=== PATIENT | female | born 1965 | race Caucasian/White ===

== ENCOUNTER 2023-10-12 08:19 | Emergency (ER) | payer MEDICAID, SELFPAY ==
[2023-10-12 08:28] VITALS: BP 129/81; PULSE 100; RESP 18; TEMP 36.9; O2SAT 100; BMI 29.6
--- NOTE | 2023-10-12 09:26 | ED_ITS ---
HPI - General Adult General Chief complaint: General Medical Stated complaint: rash all body Time Seen by Provider: 10/12/23 09:07 Source: patient Mode of arrival: ambulatory Limitations: no limitations History of Present Illness HPI narrative: This is a 58-year-old female with no known medical problems who presents to the ER with complaints of itching rash to her generalized body for several days. Patient reports she has had this intermittent rash over the last 1 month. She reports the rash began while she was living in [place]. She did moved here to [place] 2 weeks ago and plans on staying here. While she was in [place] she was given a course of prednisone which improved her symptoms. She has been intermittently taking Benadryl, montelukast, Effie, Claritin with continued symptoms. She denies any difficulty breathing, difficulty swallowing, vomiting, diarrhea, abdominal cramping. Patient reports she does not have a primary care doctor. She has never had allergy testing performed before. She denies any new medications, new products, new detergents, new foods Related Data Previous Rx's Medication Instructions Recorded famotidine 40 mg tablet 40 mg PO DAILY #30 tabs 10/12/23 loratadine 10 mg tablet (Claritin) 10 mg PO DAILY #30 tabs 10/12/23 prednisone 20 mg tablet 60 mg (3 x 20 mg) PO DAILY #15 tabs 10/12/23 Allergies Allergy/AdvReac Type Severity Reaction Status Date / Time No Known Allergies Allergy Verified 10/12/23 08:30 Review of Systems Review of Systems: Yes all other systems are reviewed and are negative Constitutional: Constitutional: Reports no additional constitutional complaints, Denies body ache(s), Denies chills, Denies fever(s), Denies headache(s) and Denies weakness Eyes: Eyes: Reports no additional eye complaints and Denies change in vision ENT: Reports system reviewed and no additional complaints, except as documented, Denies dizziness, Denies headache(s), Denies nasal congestion, Denies nasal discharge and Denies neck pain Cardiovascular: Cardiovascular: Reports no additional cardiovascular complaints, Denies chest pain, Denies leg edema and Denies dyspnea Respiratory: Respiratory: Reports no additional respiratory complaints, Denies cough and Denies dyspnea Gastrointestinal: Gastrointestinal: Reports no additional gastrointestinal complaints, Denies abdominal pain, Denies diarrhea, Denies nausea and Denies vomiting Genitourinary: Genitourinary: Reports no additional female genitourinary complaints and Denies urinary incontinence Musculoskeletal: Musculoskeletal: Reports no additional musculoskeletal complaints, Denies back pain, Denies arthralgias, Denies joint swelling, Denies neck pain, Denies numbness and Denies tingling Integumentary/Breasts: Skin/Breast: Reports system reviewed and no additional complaints, except as docu and Reports rash Neurologic: Reports system reviewed and no additional complaints, except as documented, Denies Abnormal speech present, Denies dizziness, Denies headache(s), Denies numbness, Denies tingling and Denies weakness [facility] Past Medical History Attestation statement: The following information was validated with the patient. Source: old records reviewed and nursing notes reviewed Social History Social History Advance Directives: No Advance Directives Information Provided: Yes Patient : No Physical Exam ED Vital Signs: Vital Signs - 24 hr 10/12/23 08:28 Temperature 98.5 F Pulse Rate 100 Respiratory Rate 18 Blood Pressure 129/81 Pulse Oximetry 100 Oxygen Delivery Method Room Air BMI result Body Mass Index 29.6 Const General: cooperative, healthy appearing, comfortable and no acute distress Orientation/consciousness: patient oriented x3 Limitations: no limitations HENMT Head: Yes normal to inspection Ears: hearing grossly normal bilaterally General nose exam: Normal external nose present Face and sinus: Yes normal facial exam Mouth: Normal oral and palatal mucosa present, lip normal and tongue normal Throat: Yes posterior oropharynx normal, Yes tonsils normal and Yes uvula midline Eyes General: appearance normal, both eyes and all related structures Pupils: Equal, round and reactive pupils present Neck Neck: Yes normal visual inspection, Yes full ROM, Yes no lymphadenopathy and Yes no meningeal signs Chest Chest palpation & inspection: normal inspection of the chest Resp Effort & Inspection: normal respiratory effort Auscultation: clear to auscultation bilaterally Cardio Rate: regular rate Rhythm: regular rhythm Peripheral pulses: Peripheral pulses 2+ throughout GI Inspection: Yes normal to inspection Palpation (GI): Soft to palpation and nontender Auscultation: normal bowel sounds Back/Spine/Pelvis Thoracic/Lumbar Spine: thoracic and lumbar spine normal to inspection Skin Other: over the trunk, upper and lower extremities there is an urticarial rash noted diffusely. There is no rash noted over the hands or the feet or in the oropharynx. General skin exam: no rashes or lesions noted Neuro General: patient oriented x3, no meningeal signs, no focal motor deficits and normal sensation to monofilament Cranial nerves: Yes Equal, round and reactive pupils present Cognition (Neuro): normal cognition Speech: No Abnormal speech present Gait exam (Neuro): Normal gait present Motor exam (neuro): 5/5 motor strength present throughout Extrem General: Yes normal to inspection Medications Administered Discontinued Medications Generic Name Dose Route Start Last Admin Trade Name Anneliese PRN Reason Stop Dose Admin Methylprednisolone Sodium Succinate 60 mg 10/12/23 09:25 10/12/23 09:31 Methylprednisolone Sod Succ 125 Mg/2 Ml Vial IM 10/12/23 09:26 60 mg ONCE ONE Administration Medical Decision Making Medical Decision Making [facility] Narrative: This is a 58-year-old female with no known medical problems who presents to the ER with complaints of itching rash to her generalized body for several days. Patient reports she has had this intermittent rash over the last 1 month. She reports the rash began while she was living in [place]. She did moved here to [place] 2 weeks ago and plans on staying here. While she was in [place] she was given a course of prednisone which improved her symptoms. She has been intermittently taking Benadryl, montelukast, Effie, Claritin with continued symptoms. She denies any difficulty breathing, difficulty swallowing, vomiting, diarrhea, abdominal cramping. Patient reports she does not have a primary care doctor. She has never had allergy testing performed before. She denies any new medications, new products, new detergents, new foods Urticarial noticed diffusely no airway involvement or angioedema patient given Solu-Medrol 60 mg IM will discharge home with prednisone course, famotidine, Benadryl, Claritin with recommendations to establish a primary care doctor and have allergy testing. Reviewed worrisome signs and symptoms of when to return to the emergency room. Comfortable plan for discharge home. Differential Diagnosis Differential Diagnoses: The differential diagnosis associated with the presentation includes Allergic reaction Admission/Observation Consideration of admission/observation: Escalation of care including admissi on/observation considered no airway involvement or angioedema requiring IV medication, epinephrine, admission for observation Independent Historian Clinical information obtained from an independent historian. History obtained from or confirmed by: Friend Discharge Plan Discharge Clinical Impression: Allergic reaction Patient Disposition: Home, Self-Care Instructions: General Allergic Reaction (ED) Additional Instructions: continue taking the montelukast take the other medications as prescribed Use benadryl as needed return for any difficulty breathing, difficulty swallowing, lip or tongue swelling you need to establish a primary care doctor so that you may get outpatient allergy testing Prescriptions: New prednisone 20 mg tablet 60 mg PO DAILY Qty: 15 0RF famotidine 40 mg tablet 40 mg PO DAILY Qty: 30 0RF loratadine [Claritin] 10 mg tablet 10 mg PO DAILY Qty: 30 0RF Referrals: Physician,None [Primary Care Provider] - 1 week Interventions: ED Discharge Assessment Last Done: 10/12/23 09:56 Discharge Date/Time: 10/12/23 10:00
[2023-10-12] MEDS: methylPREDNISolone Sod Succ 125 MG/2 ML VIAL 60 MG IM (09:31)
== END 2023-10-12 10:00 | disposition home or self-care (01) ==
PROVIDERS: Emergency Provider Emergency Medicine
DX: R21 Rash and other nonspecific skin eruption (principal); T78.40XA Allergy, unspecified, initial encounter; X58.XXXA Exposure to other specified factors, initial encounter
CPT/HCPCS: 96372; 99284; J2930

== ENCOUNTER 2023-12-13 10:36 | Emergency (ER) | payer MEDICAID, SELFPAY ==
[2023-12-13 11:14] VITALS: BP 144/81; PULSE 98; RESP 18; TEMP 37.3; O2SAT 99; BMI 28.3
--- NOTE | 2023-12-13 11:17 | ED_ITS ---
HPI - Allergic Reaction General Chief complaint: Skin/Abscess/Foreign Body Stated complaint: Allergic reaction-rash on body Time Seen by Provider: 12/13/23 11:23 Source: patient and RN notes reviewed Mode of arrival: ambulatory Limitations: no limitations History of Present Illness HPI narrative: This is a 58-year-old female with no known medical problems who presents to the ER with complaints of diffuse itchy rash x several days, worsening today. She was seen at [facility] ED several months ago for the same rash, given prednisone and rash resolved until several days ago. Denies any new soaps, lotions, detergents or foods. No shortness of breath or difficulty swallowing. Denies any sick contacts with similar symptoms. She has not had allergy testing before. No other complaints or concerns at this time. MD complaint: allergic reaction and hives Onset (ago): day(s) Exposure: unknown Symptoms: rash Severity: moderate Treatment prior to arrival: none Previous Allergic Reaction History: prior ED visit(s) Related Data Previous Rx's Medication Instructions Recorded famotidine 40 mg tablet 40 mg PO DAILY #30 tabs 10/12/23 loratadine 10 mg tablet (Claritin) 10 mg PO DAILY #30 tabs 10/12/23 prednisone 20 mg tablet 60 mg (3 x 20 mg) PO DAILY #15 tabs 10/12/23 diphenhydramine HCl 25 mg capsule 25 mg PO BEDTIME PRN allergic 12/13/23 (Benadryl) reaction #30 caps prednisone 20 mg tablet 40 mg (2 x 20 mg) PO DAILY 4 days 12/13/23 #8 tabs Allergies Allergy/AdvReac Type Severity Reaction Status Date / Time No Known Allergies Allergy Verified 12/13/23 11:14 Review of Systems Review of Systems: Yes all other systems are reviewed and are negative Constitutional: Constitutional: Reports as per [facility] Social History Social History Advance Directives: No Advance Directives Information Provided: No Physical Exam ED Vital Signs: Vital Signs - 24 hr 12/13/23 11:14 Temperature 99.2 F Pulse Rate 98 Respiratory Rate 18 Blood Pressure 144/81 H Pulse Oximetry 99 Oxygen Delivery Method Room Air BMI result Body Mass Index 28.3 Const General: cooperative, comfortable and no acute distress Orientation/consciousness: patient oriented x3 Limitations: no limitations HENMT Head: Yes normal to inspection, Yes normocephalic and Yes atraumatic Ears: hearing grossly normal bilaterally General nose exam: Normal external nose present Face and sinus: Yes normal facial exam Mouth: Normal oral and palatal mucosa present, oropharynx normal and moist mucous membranes Throat: Yes posterior oropharynx normal Eyes General: appearance normal, both eyes and all related structures Eyelids: Yes eyelids normal Conjunctivae: conjunctivae normal Sclerae: sclerae normal Pupils: Equal, round and reactive pupils present EOM: EOMs intact bilaterally Neck Neck: Yes normal visual inspection, Yes full ROM and Yes no lymphadenopathy Lymphatic: no lymphadenopathy noted Chest Chest palpation & inspection: normal inspection of the chest Resp Effort & Inspection: normal respiratory effort and able to speak in complete sentences Auscultation: clear to auscultation bilaterally, no crackles, no rales, no rhonchi and no wheezes Cardio Rate: regular rate Rhythm: regular rhythm Heart sounds: S1 normal heart sound present and S2 normal heart sound present GI Inspection: Yes normal to inspection Skin Other: Diffuse wheals of different sizes throughout anterior and posterior trunk and BL arms. General skin exam: no rashes or lesions noted Trauma: no lacerations or abrasions Wounds: no wounds Neuro General: patient oriented x3 and moves all extremities Cranial nerves: Yes Equal, round and reactive pupils present Extrem General: Yes normal to inspection Right upper extremity: normal to inspection Left upper extremity: normal to inspection Right lower extremity: normal to inspection Left lower extremity: normal to inspection Medications Administered Discontinued Medications Generic Name Dose Route Start Last Admin Trade Name Freq PRN Reason Stop Dose Admin Prednisone 50 mg 12/13/23 11:22 12/13/23 11:32 Prednisone 10 Mg Tablet PO 12/13/23 11:23 50 mg ONCE ONE Administration Prednisone 50 mg 12/13/23 11:35 12/13/23 13:16 Prednisone 10 Mg Tablet PO 12/13/23 11:36 Not Given ONCE ONE Medical Decision Making Medical Decision Making [facility] Narrative: 58 y/o F, no known medical problems presenting to the ER with complaints of itchy rash x several days. On arrival VSS, pt has no shortness of breath or difficulty swallowing. Presentation consistent with allergic reaction of unknown exposure, will treat symptomatically with prednisone. Pt symptoms and rash greatly improved after prednisone 50mg PO. Lungs remain clear, pt feeling much better. Pt given return precautions and high school history teacher to follow up with. PT understand and agrees with plan. Stable for d/c. Differential Diagnosis Differential Diagnoses: The differential diagnosis associated with the presentation includes contact//atopic//eczematous dermatitis, psoriasis, \cellulitis. Lab Data MDM Lab Attestation statement: I reviewed the patient's lab results. Labs: Lab Results 12/13/23 12/13/23 12/13/23 Range/Units 11:26 11:27 12:21 COVID-19 (MARIA A) Negative (Negative) COVID-19 Clin Com See Note Influenza Type A (NEMO) Invalid Negative (Negative) Influenza Type B (NEMO) Invalid Negative (Negative) Influenza A & B Note See Note See Note S. pyogenes GrpA NEMO Negative (Negative) Discharge Plan Discharge Clinical Impression: Contact dermatitis Patient Disposition: Home, Self-Care Instructions: Contact Dermatitis (ED) Additional Instructions: Your seen in the emergency department after an allergic reaction. It is unclear what you are allergic to. Your symptoms improved after receiving prednisone. Please continue prednisone for the next 4 days, take her 1st dose tomorrow as you already received your dose today. Follow-up with the high school history teacher, call Thursday to make an appointment. Take Benadryl as needed for itching, please be advised that this can cause drowsiness, do not drink alcohol or drive while taking this. If any new or worsening symptoms occur including but not limited to difficulty breathing or swallowing, please return for re-evaluation. Please call high school history teacher for referral [facility] [address] [place] [address] Prescriptions: New prednisone 20 mg tablet 40 mg PO DAILY 4 Days Qty: 8 0RF diphenhydramine HCl [Benadryl] 25 mg capsule 25 mg PO BEDTIME PRN (Reason: allergic reaction) Qty: 30 0RF No Action prednisone 20 mg tablet 60 mg PO DAILY Qty: 15 0RF famotidine 40 mg tablet 40 mg PO DAILY Qty: 30 0RF loratadine [Claritin] 10 mg tablet 10 mg PO DAILY Qty: 30 0RF Interventions: ED Discharge Assessment Last Done: 12/13/23 14:42 Discharge Date/Time: 12/13/23 14:44
[2023-12-13] MEDS: predniSONE 10 MG TABLET 50 MG PO (11:32)
[2023-12-13 11:46] LABS: IDNOW Serial# 58CA691E; Strep A Nucleic Acid Negative (Negative)
[2023-12-13 11:46] LABS: COVID-19 Test Negative (Negative); IDNOW Serial# 9DB6401D
[2023-12-13 12:16] LABS: IDNOW Serial# 08D9AD1C; Influenza A Invalid (Negative); Influenza B2 Invalid (Negative)
[2023-12-13 12:39] LABS: IDNOW Serial# 152EDE1D
[2023-12-13 12:40] LABS: Influenza A Negative (Negative); Influenza B2 Negative (Negative)
== END 2023-12-13 14:44 | disposition home or self-care (01) ==
PROVIDERS: Physician Assistant Medical; Emergency Provider Emergency Medicine
DX: L25.9 Unspecified contact dermatitis, unspecified cause (principal); L29.9 Pruritus, unspecified; Z11.52 Encounter for screening for COVID-19
CPT/HCPCS: 87502; 87635; 87651; 99282; 99283

== ENCOUNTER 2023-12-30 10:59 | Outpatient (REF) | payer MEDICAID, SELFPAY ==
[2023-12-30 11:52] LABS: MANUAL DIFF FLAG NO
[2023-12-30 12:08] LABS: Basophils Absolute Auto 0.1 X10*3/uL (0.0-0.2); Basophils Percent Auto 0.4 % (0-2); Eosinophils Absolute Auto 0.1 X10*3/uL (0.0-0.4); Eosinophils Percent Auto 0.7 % (0-4); Hematocrit 47.1 % (37.0-47.0); Hemoglobin 14.8 g/dl (12.0-16.0); Imm Gran Abs Auto 0.09 X10*3/uL (0.00-0.03); Imm Gran Pct Auto 0.8 % (0.0-0.4); Lymphocytes Absolute Auto 3.5 X10*3/uL (1.2-4.9); Lymphocytes Percent Auto 31.1 % (20-40); Mean Corpuscular HGB Conc 31.4 g/dl (31.0-35.0); Mean Corpuscular Hemoglobin 27.9 pg (27.0-33.0); Mean Corpuscular Volume 88.9 fL (80.0-98.0); Mean Platelet Volume 10.1 fL (9.4-12.3); Monocytes Absolute Auto 0.7 X10*3/uL (0.1-1.2); Monocytes Percent Auto 6.5 % (2-11); Neutrophils Absolute Auto 6.9 x10*3/uL (2.0-8.3); Neutrophils Percent Auto 60.5 % (45-73); Platelet Count 269 X10*3/uL (160-400); Red Cell Distribution Width 14.9 % (11.0-16.0); White Blood Count 11.4 X10*3/uL (4.8-10.8)
[2023-12-30 12:45] LABS: Erythrocyte Sedimentation Rate 12 MM/HR (0-20)
[2023-12-30 12:50] LABS: Alanine Aminotransferase 18 U/L (0-31); Albumin Level 3.9 g/dL (3.5-5.0); Alkaline Phosphatase 63 U/L (39-117); Aspartate Amino Transferase 17 U/L (5-31); Bilirubin Direct 0.2 mg/dL (0.0-0.5); Bilirubin Total 0.5 mg/dL (0.0-1.0); C Reactive Protein 1.54 mg/dL (< or = 0.50); Total Protein 7.1 g/dL (6.5-8.0)
[2023-12-30 12:57] LABS: Rheumatoid Factor < 13.0 IU/mL (<15.0)
[2024-01-05 10:44] LABS: ANA Pattern 2 Nuclear, Homogeneous; Anti Nuclear Antibody Pattern Nuclear, Speckled; Anti Nuclear Antibody Screen POSITIVE (NEGATIVE)
== END 2023-12-30 11:00 | disposition home or self-care (01) ==
LOC: HO.HHCL 10:59
PROVIDERS: Visit Provider Emergency Medicine
DX: L50.1 Idiopathic urticaria (principal)
CPT/HCPCS: 36415; 80076; 85025; 85652; 86038; 86039; 86140; 86431

== ENCOUNTER 2024-02-11 15:07 | Outpatient (AMB) | payer MEDICAID, SELFPAY ==
[2024-02-11 15:21] VITALS: BP 120/70; PULSE 84; TEMP 36.5; O2SAT 98
--- NOTE | 2024-02-11 15:21 | MHC.OFFVIS ---
Intake Vital Signs 02/11/24 15:21 Height 5 ft 5 in BP 120/70 Blood Pressure Location Rt brachial Position Sitting Pulse 84 Pulse Source Pulse Oximeter Temp 97.7 F Temp Source Skin Pulse Oximetry (%) 98 Oxygen Delivery Method Room Air Intake Visit Reasons: Elevated GARY Intake Note: New patient, externally referred, presents to office today for elevated GARY. Recurrent rash on face, back, arms, and face x 4 mo on and off Gre Tutor Required: No Accompanied by: Self / Same As Patient Allergies No Known Allergies Allergy (Verified 02/11/24 15:27) HPI HPI Comments History of Present Illness Details Ms. Lakhani 58-year-old female, on referral from her primary care, presents today for evaluation of recurring rash. Her brothers with her to help translate. The patient has lived in [place] for 6 years, and 6 months ago, in July 2023, relocated to the [facility]. The rash started 1 month before she left [place]. She describes the rash as primarily to her upper body, torso mom chest, arms and back. She has gone to the ER twice (Nov/Dec 2023) since coming to [place] and was told by the ER staff it is Uticaria. She is usually treated with prednisone which resolves it quickly and completely. She was also prescribed Benadryl and Claritin but she says those did not help. The rash usually has a slow onset, starts with 1 or 2 lesions, and then overnight it blows up into a lot. It is red and itchy and gives her skin a blotchy appearance. She would like to know what is causing her to get the rash. She does not want to take prednisone all the time, she thinks it is making her gain weight and her face gets puffy. She has not seen Dermatology. She has an appointment in April 2024 to see the instrument technologist. 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 She denies sores in the mouth, sun sensitivity, uveitis, fatigue, and she has no family history of lupus. She does not get joint pain swelling or warmth. 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 Constitutional: Non-toxic appearing. No acute distress. Well-developed and well-nourished. HEENT: Normocephalic and atraumatic. External auditory canals without erythema or edema bilaterally. Dry mucous membranes. No pharyngeal erythema or exudates. Skin: Warm and dry. Scattered hyperpigmented macules to forearm, some small erythematous wheal to right shoulder and right scapular region Neck: Full and painless range of motion. No cervical lymphadenopathy. Cardio: Regular rate and rhythm. No murmurs, gallops, or rubs. No lower extremity edema. No JVD. Pulmonary: No respiratory distress. No accessory muscle usage. Scattered expiratory wheezing. Gastrointestinal: Soft, nontender, and nondistended in all 4 quadrants. Normoactive bowel sounds in all 4 quadrants. Musculoskeletal: Normal range of motion in joints throughout the body. No deformity or other signs of injury. Neuro: Alert and oriented x4. Cranial nerves 2-12 grossly intact. No focal deficits appreciated. Results Reviewed Results Reviewed: Laboratory Tests 12/30/23 11:03 WBC 11.4 H RBC 5.30 Hgb 14.8 Hct 47.1 H ESR 12 C-Reactive Protein 1.54 H Rheumatoid Factor < 13.0 GARY Screen POSITIVE A GARY Titer 1:80 H Assessment & Plan Assessment & Plan (1) GARY positive: Code(s): R76.8 - Other specified abnormal immunological findings in serum (2) Idiopathic urticaria: Code(s): L50.1 - Idiopathic urticaria Plan #Idiopathic urticaria/positive GARY Ms. Lakhani he is here to determine if her rashes is of autoimmune origin given her positive GARY. The patient does not have any clinical presentation to support a lupus diagnosis at this point. I suspect that her rash is likely allergenic in origins. However the patient can not identify an associated cause. The lesions observed on PE and on the pictures she showed, do not give the appearance of a lupus rash. A biopsy would would help to establish the differentials so I have also given her referral for the production sanitizer. She does have an appointment scheduled with the instrument technologist and I think that also will be beneficial. In November when she had an episode, the ESR and CRP were elevated and at that time the GARY was found to be positive. The patient is largely asymptomatic at this point so I have given her some labs to do upon her next flare. The patient will call the office and I will send her some prednisone after she has had the labs taken. The patient and her brother agrees with this plan I spent 40 minutes reviewing history, evaluating and discussing options with the patient and documenting The patient will call at her next episode Orders: Orders Thyroglobulin Antibodies Today L50.1 - Idiopathic urticaria, R76.8 - Other specified abnormal immunological findings in serum Smooth Muscle Antibody Today L50.1 - Idiopathic urticaria, R76.8 - Other specified abnormal immunological findings in serum C Reactive Protein Today L50.1 - Idiopathic urticaria, R76.8 - Other specified abnormal immunological findings in serum Erythrocyte Sedimentation Rate Today L50.1 - Idiopathic urticaria, R76.8 - Other specified abnormal immunological findings in serum Anti DNA DS Antibody Today L50.1 - Idiopathic urticaria, R76.8 - Other specified abnormal immunological findings in serum Anti Extractable Nuclear Ag Today L50.1 - Idiopathic urticaria, R76.8 - Other specified abnormal immunological findings in serum Complement C3 Today L50.1 - Idiopathic urticaria, R76.8 - Other specified abnormal immunological findings in serum Complement C4 Today L50.1 - Idiopathic urticaria, R76.8 - Other specified abnormal immunological findings in serum Immunoglobulins,IgG IgA IgM Today L50.1 - Idiopathic urticaria, R76.8 - Other specified abnormal immunological findings in serum Protein Electrophoresis, Serum Today L50.1 - Idiopathic urticaria, R76.8 - Other specified abnormal immunological findings in serum UA w Microscopic Today L50.1 - Idiopathic urticaria, R76.8 - Other specified abnormal immunological findings in serum Thyroid Peroxidase Antibodies Today L50.1 - Idiopathic urticaria, R76.8 - Other specified abnormal immunological findings in serum Mitochondrial Antibody Today L50.1 - Idiopathic urticaria, R76.8 - Other specified abnormal immunological findings in serum Referrals Dermatology Referral L50.1 - Idiopathic urticaria Coding Level of Care Code New Pt Level 4 (12816) Diagnoses GARY positive R76.8 Idiopathic urticaria L50.1
== END 2024-02-11 16:16 | disposition home or self-care (01) ==
PROVIDERS: PCP Emergency Medicine; Referring Provider Emergency Medicine; Visit Provider Nurse Practitioner Family
DX: R76.8 Other specified abnormal immunological findings in serum (principal); L50.1 Idiopathic urticaria
CPT/HCPCS: 99204

== ENCOUNTER → 2024-02-11 15:07 | Outpatient (BNVA) | payer MEDICAID, SELFPAY | PROVIDERS: PCP Emergency Medicine; Referring Provider Emergency Medicine; Visit Provider Nurse Practitioner Family | DX: R76.8 Other specified abnormal immunological findings in serum (principal); L50.1 Idiopathic urticaria | CPT/HCPCS: 99212 ==

== ENCOUNTER 2024-02-13 07:13 | Emergency (ER) | payer MEDICAID, SELFPAY ==
[2024-02-13 07:28] VITALS: BP 122/60; PULSE 99; RESP 16; TEMP 36.3; O2SAT 95; BMI 34.9
--- NOTE | 2024-02-13 08:19 | ED_ITS ---
HPI - Allergic Reaction General Chief complaint: Allergic Reaction Stated complaint: rash ? Time Seen by Provider: 02/13/24 08:08 Source: patient and family Mode of arrival: ambulatory Limitations: no limitations History of Present Illness HPI narrative: 58-year-old female with no known medical problem who presents to the ER with a complaint of itching rash to her generalized body for 6 months, patient recently moved from [place] now she reside in [place] patient reported improvement of previous short course of prednisone given to her while she was in [place], patient now follow with PCP who is ordering blood workup patient is requesting to be drawn in the emergency department since she is here, patient declined any change in her daily routine including food, soap, detergent, sheets, clothes, medications, etc. Patient otherwise declined headache, CP, abdominal pain, UTI symptoms. Related Data Previous Rx's Medication Instructions Recorded famotidine 40 mg tablet 40 mg PO DAILY #30 tabs 10/12/23 loratadine 10 mg tablet (Claritin) 10 mg PO DAILY #30 tabs 10/12/23 prednisone 20 mg tablet 60 mg (3 x 20 mg) PO DAILY #15 tabs 10/12/23 diphenhydramine HCl 25 mg capsule 25 mg PO BEDTIME PRN allergic 12/13/23 (Benadryl) reaction #30 caps prednisone 20 mg tablet 40 mg (2 x 20 mg) PO DAILY 4 days 12/13/23 #8 tabs cefuroxime axetil 250 mg tablet 250 mg PO BID #10 tabs 02/13/24 prednisone 20 mg tablet 20 mg PO BID #10 tabs 02/13/24 Allergies Allergy/AdvReac Type Severity Reaction Status Date / Time hydrocortisone Allergy Rash Verified 02/13/24 07:31 Review of Systems 2 Review of Systems: All other systems are reviewed and are negative Constitutional: Reports as per HPI and Reports no additional constitutional complaints Eyes: Reports as per HPI and Reports no additional eye complaints Reports system reviewed and no additional complaints, except as documented Cardiovascular: Reports as per HPI and Reports no additional cardiovascular complaints Respiratory: Reports as per HPI and Reports no additional respiratory complaints Gastrointestinal: Reports as per HPI and Reports no additional gastrointestinal complaints Genitourinary: Reports no additional female genitourinary complaints Musculoskeletal: Reports no additional musculoskeletal complaints Skin/Breast: Reports system reviewed and no additional complaints, except as docu Psychiatric: Reports no additional psychiatric complaints Endocrine: Reports no additional endocrine complaints Hematologic/Lymphatic: Reports no additional hematologic/lymphatic complaints Allergic/Immunologic: Reports no additional allergic/immunologic complaints Reports system reviewed and no additional complaints, except as documented and Reports Abnormal speech present [facility] Past Medical History Medical History GARY positive Idiopathic urticaria Rash Social History Social History Alcohol intake: never Patient Tobacco Use Status: Never used Tobacco Advance Directives: No Advance Directives Information Provided: No 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 Blood pressure elevated. Heart rate normal. Respiratory rate normal. Temperature normal. Oxygen saturation normal. Appearance: Alert. Oriented X3. No acute distress. Head: Normal external exam. Normocephalic. Atraumatic. No Feldman signs noted. No raccoon eyes noted Eyes: PERRLA. EOMI. Conjunctiva and sclera normal. Eyelids normal. ENT: TM's Normal. Pharynx normal. Uvula midline. Moist mucous membranes. No trismus noted. No drooling noted. No muffled voice noted. Neck: Normal inspection. Neck supple. FROM. No adenopathy. Thyroid Normal. No meningeal signs. No neck mass noted. CVS: Normal heart rate and rhythm. Heart sound normal. No murmurs noted. Pulses normal throughout. Respiratory: No respiratory distress. Painless inspiration. Breath sounds normal. No wheezes/rales/rhonchi noted. Chest nontender. No accessory muscle usage noted or decreased air movement noted. Abdomen: Soft and nontender. Bowel sounds normal in all 4 quadrants. No distention noted. No organomegaly noted. No visible injury noted. Back: No CVA tenderness. Full range of motion noted. Skin: Diffuse hives on the extremities, chest, torso. Extremities: No lower extremity edema. Extremities exhibit normal range of motion. Extremities nontender. Neuro: Oriented X 3. Cranial nerve exam: II-XII are grossly intact No motor deficit. No sensory deficit. Reflexes normal. Course Reevaluation(s) Reevaluation #1: Six-months history of hives, itching with no obvious change in patient's daily routine. Unremarkable labs today as recommended by PCP and patient requested to get them done. Will start the patient on prednisone course for 5 days and follow-up with PCP and geotechnical engineer. Labs also is showing minor UTI will start on cefuroxime for 5 days. Time: 10:00 Medical Decision Making Differential Diagnosis Differential Diagnoses: The differential diagnosis associated with the presentation includes (Allergic reaction, contact dermatitis, electrolyte derangement, severe anemia, cellulitis, UTI.) Admission/Observation Consideration of admission/observation: Escalation of care including admission/observation considered Lab Data MDM Lab Attestation statement: I reviewed the patient's lab results. 02/13/24 08:40 02/13/24 08:40 Labs: Lab Results 02/13/24 02/13/24 Range/Units 08:40 09:00 WBC 7.4 (4.8-10.8) X10*3/uL RBC 4.95 (4.20-5.50) X10*6/uL Hgb 13.9 (12.0-16.0) g/dl Hct 43.2 (37.0-47.0) % MCV 87.3 (80.0-98.0) fL MCH 28.1 (27.0-33.0) pg MCHC 32.2 (31.0-35.0) g/dl RDW 15.3 (11.0-16.0) % Plt Count 296 (160-400) X10*3/uL MPV 9.9 (9.4-12.3) fL Immature Gran % (Auto) 0.5 H (0.0-0.4) % Neut % (Auto) 51.9 (45-73) % Lymph % (Auto) 39.4 (20-40) % [place] % (Auto) 7.0 (2-11) % Eos % (Auto) 0.8 (0-4) % Baso % (Auto) 0.4 (0-2) % Lymph # (Auto) 2.9 (1.2-4.9) X10*3/uL [place] # (Auto) 0.5 (0.1-1.2) X10*3/uL Eos # (Auto) 0.1 (0.0-0.4) X10*3/uL Baso # (Auto) 0.0 (0.0-0.2) X10*3/uL Abs Immat Gran (auto) 0.04 H (0.00-0.03) X10*3/uL Absolute Neuts (auto) 3.8 (2.0-8.3) x10*3/uL Absolute Nucleated RBC 0.000 (0.0-0.012) X10*3/uL Nucleated RBC % (auto) 0.0 (0.0-0.2) /100WBC Sodium 141 (135-145) mmol/L Potassium 3.6 (3.3-5.1) mmol/L Chloride 107 (96-108) mmol/L Carbon Dioxide 27 (22-29) mmol/L Anion Gap 11 L (12-20) BUN 11 (9-16) mg/dL Creatinine 0.91 (0.5-1.4) mg/dL Estim Creat Clear Calc 69.6 Estimated GFR > 60 Random Glucose 87 (60-115) mg/dL Calcium 9.9 (8.4-10.2) mg/dL Urine Color Yellow Urine Appearance Clear Urine pH 6.0 (5.0-9.0) Ur Specific [place] 1.010 (1.005-1.025) Urine Protein Negative (Neg-Trace) mg/dL Urine Glucose (UA) Negative (Negative) mg/dL Urine Ketones Negative (Negative) mg/dL Urine Blood Small (1+) H (Negative) Urine Nitrite Negative (Negative) Ur Leukocyte Esterase Moderate (2+) H (Negative) Urine RBC 3-5 H (0-2) /HPF Urine WBC 6-10 H (0-5) /HPF Ur Squamous Epith Cells 3-5 (0-2) /HPF Urine Bacteria None Seen (None Seen) Hyaline Casts 0-2 (0-2) /LPF Discharge Plan Discharge Clinical Impression: Allergic reaction, UTI (urinary tract infection) Patient Disposition: Home, Self-Care Instructions: General Allergic Reaction (ED) Prescriptions: New prednisone 20 mg tablet 20 mg PO BID Qty: 10 0RF cefuroxime axetil 250 mg tablet 250 mg PO BID Qty: 10 0RF No Action prednisone 20 mg tablet 40 mg PO DAILY 4 Days Qty: 8 0RF diphenhydramine HCl [Benadryl] 25 mg capsule 25 mg PO BEDTIME PRN (Reason: allergic reaction) Qty: 30 0RF prednisone 20 mg tablet 60 mg PO DAILY Qty: 15 0RF famotidine 40 mg tablet 40 mg PO DAILY Qty: 30 0RF loratadine [Claritin] 10 mg tablet 10 mg PO DAILY Qty: 30 0RF Referrals: [facility] [Primary Care Provider] -
[2024-02-13 08:46] LABS: MANUAL DIFF FLAG NO
[2024-02-13 09:04] LABS: Anion Gap 11 (12-20); Blood Urea Nitrogen 11 mg/dL (9-16); Calcium 9.9 mg/dL (8.4-10.2); Carbon Dioxide 27 mmol/L (22-29); Chloride 107 mmol/L (96-108); Creatinine Clr Calc Pharmacy 69.6; Estimated Glomerular Filt Rate > 60; Glucose Random 87 mg/dL (60-115); Potassium 3.6 mmol/L (3.3-5.1); Sodium 141 mmol/L (135-145)
[2024-02-13 09:07] LABS: Appearance Urine Clear; Color Urine Yellow; Glucose Urine UA Negative (Negative); Leukocyte Esterase Urine Moderate (2+) (Negative); Nitrite Urine Negative (Negative); UMIC TRIGGER UACC YES; Urine Blood Small (1+) (Negative); Urine Ketones Negative (Negative); Urine Protein Negative (Neg-Trace)
[2024-02-13 09:15] LABS: Basophils Percent Auto 0.4 % (0-2); Eosinophils Absolute Auto 0.1 X10*3/uL (0.0-0.4); Eosinophils Percent Auto 0.8 % (0-4); Hematocrit 43.2 % (37.0-47.0); Hemoglobin 13.9 g/dl (12.0-16.0); Imm Gran Abs Auto 0.04 X10*3/uL (0.00-0.03); Imm Gran Pct Auto 0.5 % (0.0-0.4); Lymphocytes Absolute Auto 2.9 X10*3/uL (1.2-4.9); Lymphocytes Percent Auto 39.4 % (20-40); Mean Corpuscular HGB Conc 32.2 g/dl (31.0-35.0); Mean Corpuscular Hemoglobin 28.1 pg (27.0-33.0); Mean Corpuscular Volume 87.3 fL (80.0-98.0); Mean Platelet Volume 9.9 fL (9.4-12.3); Monocytes Absolute Auto 0.5 X10*3/uL (0.1-1.2); Neutrophils Absolute Auto 3.8 x10*3/uL (2.0-8.3); Neutrophils Percent Auto 51.9 % (45-73); Platelet Count 296 X10*3/uL (160-400); Red Blood Count 4.95 X10*6/uL (4.20-5.50); Red Cell Distribution Width 15.3 % (11.0-16.0); White Blood Count 7.4 X10*3/uL (4.8-10.8)
[2024-02-13 09:21] LABS: Bacteria Urine None Seen (None Seen); Hyaline Casts Urine 0-2 /LPF (0-2); UACC Culture Trigger YES
[2024-02-13] MEDS: predniSONE 20 MG TABLET 40 MG PO (10:04)
[2024-02-13 10:20] VITALS: BP 134/77; PULSE 78; RESP 16; TEMP 36.3; O2SAT 99
== END 2024-02-13 10:21 | disposition home or self-care (01) ==
PROVIDERS: Emergency Provider Emergency Medicine
DX: T78.40XA Allergy, unspecified, initial encounter (principal); X58.XXXA Exposure to other specified factors, initial encounter; N39.0 Urinary tract infection, site not specified; R21 Rash and other nonspecific skin eruption
CPT/HCPCS: 36415; 80048; 81001; 85025; 87086; 99282; 99283

== ENCOUNTER 2024-03-25 14:47 | Outpatient (REF) | payer MEDICAID, SELFPAY | END 2024-03-25 14:48 | disposition home or self-care (01) | LOC: HO.MAMMO 14:47 | PROVIDERS: PCP Nurse Practitioner Family; Visit Provider Nurse Practitioner Family | DX: Z12.31 Encounter for screening mammogram for malignant neoplasm of breast (principal) | CPT/HCPCS: 77063; 77067 ==

== ENCOUNTER → 2024-03-25 15:30 | Outpatient (BNV) | payer MEDICAID, SELFPAY | PROVIDERS: PCP Nurse Practitioner Family; Visit Provider Radiology Diagnostic Radiology | DX: Z12.31 Encounter for screening mammogram for malignant neoplasm of breast (principal) | CPT/HCPCS: 77063; 77067 ==

== ENCOUNTER 2024-10-10 09:02 | Outpatient (REF) | payer MEDICAID, SELFPAY ==
--- NOTE | ~2024-10-10 | XR_ITS ---
EXAMINATION: XR HAND 3 OR MORE VIEWS RIGHT CLINICAL INFORMATION: , Acute right thumb pain COMPARISON: None available at the time of this dictation. TECHNIQUE: Frontal lateral oblique views of the hand were obtained. 3 views FINDINGS: There is a small area of chip fracture avulsion from the dorsal aspect of the distal phalanx second finger indeterminant age. Mild degenerative osteoarthritic changes involving distal interphalangeal joints second and third finger. Radiocarpal, intercarpal, carpometacarpal, metacarpophalangeal and interphalangeal joints are intact. There are no osteolytic or osteoblastic lesions. There are no bone erosions. Surrounding soft tissue unremarkable. XR/XR hand RT min 3V IMPRESSION: * Small area of chip fracture from the dorsal aspect of the distal phalanx second finger indeterminant age. * Underlying mild DJD. Electronically signed by: Surya Conroy MD 10/10/2024 01:20 PM [facility]
== END 2024-10-10 09:03 | disposition home or self-care (01) ==
LOC: HO.XRAY 09:02
PROVIDERS: PCP Nurse Practitioner Family; Visit Provider Registered Nurse
DX: M79.644 Pain in right finger(s) (principal)
CPT/HCPCS: 73130

== ENCOUNTER 2024-11-11 14:20 | Outpatient (REF) | payer MEDICAID, SELFPAY ==
--- NOTE | 2024-11-11 | EMG_ITS ---
Chief complaint: Right hand pain and numbness Reason for referral: Evaluate for Carpal Tunnel Syndrome Referred by: Wilma Glen Elder JOANN Procedure done: Right upper extremity NCS/EMG Precautions and/or limitations: None The limb temperature was monitored continuously and remained between 32-36 degrees C during the performance of the NCS. Nerve Conduction Studies Anti Sensory Summary Table ?Stim Site NR Onset (ms) Norm Onset (ms) Peak (ms) Norm Peak (ms) O-P Amp (?V) Norm O-P Amp Site1 Site2 Delta-0 (ms) Dist (cm) Garrison (m/s) Norm Garrison (m/s) Right Median Anti Sensory (2nd Digit) Wrist ? 2.8 3.8 <3.6 29.7 >10 Wrist 2nd Digit 2.8 14.0 50 Right Ulnar Anti Sensory (5th Digit) Wrist ? 1.1 3.2 <3.7 81.8 >15.0 Wrist 5th Digit 1.1 14.0 127 Motor Summary Table ?Stim Site NR Onset (ms) Norm Onset (ms) O-P Amp (mV) Norm O-P Amp iAmp (mV) Amp (1st) (%) Site1 Site2 Delta-0 (ms) Dist (cm) Garrison (m/s) Norm Garrison (m/s) Right Median Motor (Abd Poll Brev) Wrist ? 3.4 <3.9 9.6 >4.5 11.3 100.0 Elbow Wrist 3.8 20.5 54 >45 Elbow ? 7.2 9.7 11.5 101.0 Right Ulnar Motor (Abd Dig Minimi) Wrist ? 2.6 <3.0 9.1 >5 10.9 100.0 B Elbow Wrist 3.3 19.0 58 >45 B Elbow ? 5.9 8.4 10.2 92.3 A Elbow B Elbow 1.4 10.0 71 >45 A Elbow ? 7.3 8.5 10.3 93.4 Comparison Summary Table ?Stim Site NR Peak (ms) Norm Peak (ms) P-T Amp (?V) Site1 Site2 Delta-P (ms) Norm Delta (ms) Right Median/Radial Dig I Comparison (Digit 1 - 10cm) Median ? 2.8 <2.9 23.0 Median Radial 0.3 Radial ? 2.5 <2.8 7.2 EMG ?Side Muscle Nerve Root Ins Act Fibs Psw Amp Dur Poly Recrt Int Pat Comment Right 1stDorInt Ulnar C8-T1 Nml Nml Nml Nml Nml 0 Nml Complete Right FlexCarRad Median C6-7 Nml Nml Nml Nml Nml 0 Nml Complete Right Biceps Musculocut C5-6 Nml Nml Nml Nml Nml 0 Nml Complete Right Triceps Radial C6-7-8 Nml Nml Nml Nml Nml 0 Nml Complete Right Deltoid Axillary C5-6 Nml Nml Nml Nml Nml 0 Nml Complete FINDINGS: Right median sensory nerve showed prolonged peak latency. All other nerves tested were within normal. Concentric needle EMG was performed in selected muscles of the right upper extremity. Study did not reveal signs of electric abnormalities as shown in the table above. IMPRESSION: 1. This is an abnormal study. 2. There is electrodiagnostic evidence for right mild median neuropathy at the wrist, consistent with carpal tunnel syndrome. 3. There is no electrodiagnostic evidence for ulnar neuropathy, brachial plexopathy, or cervical radiculopathy. Thank you for your kind referral. Ofelia Lopez MD, ISABEL Board Certified, [place] Board of Physical Medicine and Rehabilitation (ABPMR) Board Certified, [place] Board of Electrodiagnostic Medicine (ABEM) CODIN [id number] MTDD
== END 2024-11-11 14:21 | disposition home or self-care (01) ==
LOC: HO.NEURO 14:20
PROVIDERS: PCP Nurse Practitioner Family; Visit Provider Registered Nurse
DX: R20.0 Anesthesia of skin (principal); R20.2 Paresthesia of skin
CPT/HCPCS: 95886; 95909

== ENCOUNTER → 2024-11-11 14:24 | Outpatient (BNV) | payer MEDICAID, SELFPAY | PROVIDERS: PCP Nurse Practitioner Family; Visit Provider Physical Medicine & Rehabilitation | DX: G56.01 Carpal tunnel syndrome, right upper limb (principal) | CPT/HCPCS: 95886; 95909 ==

== ENCOUNTER 2024-12-16 13:49 | Outpatient (AMB) | payer MEDICAID, SELFPAY ==
--- NOTE | 2024-12-16 13:56 | MHC.OFFVIS ---
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 Patient reports numbness and tingling that occurs daily through the entire day. 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 She reports she has locking and catching of her bilateral thumbs. She has a brace she wears but it does not offer her any relief. 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 Hx of EMG done on 11/11/2024 IMPRESSION: 1. This is an abnormal study. 2. There is electrodiagnostic evidence for right mild median neuropathy at the wrist, consistent with carpal tunnel syndrome. 3. There is no electrodiagnostic evidence for ulnar neuropathy, brachial plexopathy, or cervical radiculopathy. 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 Patient reports numbness and tingling that occurs daily through the entire day. 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 She reports she has locking and catching of her bilateral thumbs. She has a brace she wears but it does not offer her any relief. 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 Hx of EMG done on 11/11/2024 IMPRESSION: 1. This is an abnormal study. 2. There is electrodiagnostic evidence for right mild median neuropathy at the wrist, consistent with carpal tunnel syndrome. 3. There is no electrodiagnostic evidence for ulnar neuropathy, brachial plexopathy, or cervical radiculopathy. 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 Neuro: Normal sensation of the tips of all digits of the bilateral hand at this time Vascular: Cap refill brisk Pain: Tenderness to palpation at the A1 deborah of the right thumb Pain associated with locking catching ROM: There is a visible and palpable locking and catching of the right thumb Patient is able to flex and extend all other digits of the right hand fully and without difficulty Skin: No lacerations or abrasions. General: No ecchymosis, erythema, or evidence of infection. Psych: Appears grossly normal Affect normal Attitude cooperative Office Procedures Joint Inj/Aspir; Non-Pain Clin Joint Injection/Drain Prep: site was prepped using aseptic technique and injection warnings given Trigger Finger Trigger Finger Thumb Joint Injection: Right Thumb Coding Procedure code (CPT) selection complete Assessment & Plan Assessment & Plan (1) Right carpal tunnel syndrome: Code(s): G56.01 - Carpal tunnel syndrome, right upper limb Category: Medical (2) Trigger thumb, right thumb: Code(s): M65.311 - Trigger thumb, right thumb Category: Medical Plan 1. Trigger thumb, right The risks and benefits of a steroid injection including but not limited to risk of damage to blood vessels, nerves, tendons, infection, skin bleaching, failure to improve symptoms, increased pain, and possible need for further injections or other intervention were discussed with the patient and the patient wishes to proceed with the steroid injection. Once consent was obtained, I sterilely prepped the area over the A1 deborah of the flexor tendon sheath of the right thumb. I then injected the flexor tendon sheath with a combination of 1 mL of dexamethasone (4mg/ml), and 1% lidocaine. The patient tolerated the procedure well with no complications. If the patient continues to have locking and catching 4-6 weeks following this injection, they may call to schedule appointment to discuss alternative treatment options Follow-up prn 2. Right carpal tunnel Intermittent, daily, worse at night Patient states she is uncomfortable signing up for surgery at this time Patient states she would like some time to think about her potential treatment options Patient will follow-up in 4-5 weeks for discussion of potential surgery, sooner with any acute concerns Medications: Discontinued loratadine Discontinued Reason: Patient no longer taking 10 mg PO DAILY 30 tabs 0RF prednisone Discontinued Reason: Stopped on Transfer 60 mg (3 x 20 mg) PO DAILY 15 tabs 0RF prednisone Discontinued Reason: Patient no longer taking 40 mg (2 x 20 mg) PO DAILY 4 days 8 tabs 0RF famotidine Discontinued Reason: Patient no longer taking 40 mg PO DAILY 30 tabs 0RF diphenhydramine HCl Discontinued Reason: Patient no longer taking 25 mg PO BEDTIME PRN 30 caps 0RF allergic reaction prednisone Discontinued Reason: Patient no longer taking 20 mg PO BID 10 tabs 0RF cefuroxime axetil Discontinued Reason: Patient no longer taking 250 mg PO BID 10 tabs 0RF Coding Level of Care Code Est Pt Level 3 (06952) Diagnoses Right carpal tunnel syndrome G56.01 Trigger thumb, right thumb M65.311 CPT Codes Trigger Finger ([id number])
[2024-12-16 14:00] VITALS: BMI 32.9
== END 2024-12-16 14:33 | disposition home or self-care (01) ==
PROVIDERS: PCP Nurse Practitioner Family
DX: G56.01 Carpal tunnel syndrome, right upper limb (principal); M65.311 Trigger thumb, right thumb
CPT/HCPCS: 20550; 99204

== ENCOUNTER → 2024-12-16 13:49 | Outpatient (BNVA) | payer MEDICAID, SELFPAY | PROVIDERS: PCP Nurse Practitioner Family | DX: G56.01 Carpal tunnel syndrome, right upper limb (principal); M65.311 Trigger thumb, right thumb | CPT/HCPCS: 20550; 99212; J1100; J2003 ==

== ENCOUNTER 2024-12-26 13:35 | Outpatient (REF) | payer MEDICAID, SELFPAY ==
[2024-12-26 16:27] LABS: MANUAL DIFF FLAG NO
[2024-12-26 16:36] LABS: Basophils Percent Auto 0.7 % (0-2); Eosinophils Absolute Auto 0.1 X10*3/uL (0.0-0.4); Eosinophils Percent Auto 1.8 % (0-4); Imm Gran Abs Auto 0.01 X10*3/uL (0.00-0.03); Imm Gran Pct Auto 0.2 % (0.0-0.4); Lymphocytes Absolute Auto 1.8 X10*3/uL (1.2-4.9); Lymphocytes Percent Auto 32.7 % (20-40); Mean Corpuscular HGB Conc 31.6 g/dl (31.0-35.0); Mean Corpuscular Hemoglobin 27.9 pg (27.0-33.0); Mean Corpuscular Volume 88.4 fL (80.0-98.0); Mean Platelet Volume 10.6 fL (9.4-12.3); Monocytes Absolute Auto 0.4 X10*3/uL (0.1-1.2); Monocytes Percent Auto 7.8 % (2-11); Neutrophils Absolute Auto 3.1 x10*3/uL (2.0-8.3); Neutrophils Percent Auto 56.8 % (45-73); Platelet Count 279 X10*3/uL (160-400); Red Cell Distribution Width 14.6 % (11.0-16.0); White Blood Count 5.5 X10*3/uL (4.8-10.8)
[2024-12-26 17:04] LABS: Anion Gap 10 (12-20); Blood Urea Nitrogen 17 mg/dL (9-16); Calcium 9.9 mg/dL (8.4-10.2); Carbon Dioxide 24 mmol/L (22-29); Chloride 108 mmol/L (96-108); Estimated Glomerular Filt Rate > 60; Glucose Random 112 mg/dL (60-115); Potassium 3.7 mmol/L (3.3-5.1); Sodium 138 mmol/L (135-145)
--- OUTSIDE RECORDS SUMMARY | 2024-12-26 18:19 | XMS_ITS | Encounter Summary ---
Author Organization [employer] Address [address] [place] [address] Care Team Providers Care A&P Technician Name Role Phone Keturah Aguilar Primary Care Provider [phone] Reason for Visit * Reason Comments Care Coordination CHW outreach for SDO H PT-1 and food needs-referral completed Encounter Details Date Type Department Care Team (Latest Contact Info) Description 12/14/2024 Patient Outreach [facility] MEDICINE [address] [place] [address] Keturah Aguilar FNP [address] [place] [address] Care Coordination (CHW outreach for SDOH PT-1 and food needs-referral completed /) Social History Tobacco Use Types Packs/Day Years Used Date Smoking Tobacco: Never Passive Smoke Exposure: Never Smokeless Tobacco: Never Alcohol Use Standard Drinks/Week Comments Not Currently 0 (1 standard drink = 0.6 oz pur e alcohol) Depression Answer Date Recorded Patient Health Questionnaire-9 Score 3 02/29/2024 Patient Health Questionnaire-9 Score 3 02/29/2024 Last PHQ-9: Questionnaire Data Not on file 0 02/29/2024 Housing Stability Answer Date Recorded What is your housing situation today? I do not have housing (Staying with others, in a hotel, in a custodial, living outside on the street, on a beach, in a car, or in a park 12/14/[address] you li ve. Do you have problems with any of the following? None of the above 12/14/2024 Food Insecurity Answer Date Recorded Within the past 12 months, y ou worried that your food would run out before you got money to buy more: Never True 12/14/2024 Within the past 12 months,th e food you bought just didn't last and you didn't have enough money to get more: Never True Transportation Answer Date Recorded In the past 12 months, has l ack of transportation kept you from medical appts, meetings, work or from getting things needed for daily living? Yes, it has kept me from medical appointments or getting medications. 12/14/2024 Utilities Answer Date Recorded In the past 12 months, has t he electric, gas, oil or water company threatened to shut off services in your home? No 12/14/2024 Depression Answer Date Recorded Patient Health Questionnaire-2 Score 0 02/29/2024 Internet Access Answer Date Recorded Internet Access Q1 Yes 12/14/2024 Internet Access Q2 Not on file 12/14/2024 Comments Unknown Sex and Gender Information Value Date Recorded Sex Assigned at Female 09/29/2022 10:15 AM EDT Legal Sex Female 10:15 AM EDT Gender Identity Female 09/29/2022 10:15 AM EDT Sexual Orientation Straight 09/29/2022 10 :15 AM EDT documented as of this encounter Progress Notes * Jr Gamez - 12/14/2024 2:42 PM EST CHW Jr Gamez, placed outbound call to patient for assistance with SDOH as a referral was received by the provider. Patient's name and were confirmed. Patient screened positive for the following SDOH food insecurities. Patient states family in on SNAP program at this time. CHW referral patient to the local list of pantries in the area for help. PT-1 requested was send out in behalf of patient for futures appt. Patient verbalizes understanding, and able to agree with plan to follow up.Patient educated on extended clinic hours on Mondays through Wednesdays, and Walk-In Urgent Care Located in [facility] of [facility]. Patient provided with after-hours line for [facility], , which offer night time triage service and option to transfer to python consultant provider if needed. documented in this encounter Plan of Treatment Upcoming Encounters Date Type Department Care Team (Late st Contact Info) Description 01/26/2025 2:30 PM EST Office Visit [facility] ADULT DENTAL [address] [place] [address] Saurabh Mayers, DMD [address] [place] [address] 02/03/2025 1:30 PM EST Office Visit [facility] MEDICINE [address] [place] [address] Keturah Aguilar FNP [address] [place] [address] documented as of this encounter Visit Diagnoses Not on filedocumented in this encounter Additional Health Concerns Assessment Noted Time PHQ-9 Depression Total Score: 3 02/29/20 24 2:30 PM EDT documented as of this encounter Care Teams A&P Technician Relationship Specialty Start Date End Date Keturah Aguilar FNP [address] [place] [address] PCP - General Family Medicine 09/29/24 documented as of this encounter
--- OUTSIDE RECORDS SUMMARY | 2024-12-26 18:19 | XMS_ITS | Encounter Summary ---
Author Organization [employer] Address [address] [facility] [address] [place] [address] Care Team Providers Care Accounting Generalist Name Role Phone Keturah Aguilar Primary Care Provider [phone] Reason for Visit * Reason Comments Pre-visit Planning SDOH screening posit erasmo and Tobacco screening negative Encounter Details Date Type Department Care Team ([facility] st Contact Info) Description 12/14/2024 Patient Outreach [facility] MEDICINE [address] [place] [address] Keturah Aguilar FNP [address] [place] [address] Pre-visit Planning (SDOH screening positive and Tobacco screening negative) Social History Tobacco Use Types Packs/Day Years [...] with others, in a hotel, in a skilled nursing, living outside on the street, on a [...] the past 12 months, has t he [employer], gas, oil or water company threatened to [...] as of this encounter Progress Notes * Sada Bo - 12/14/2024 2:09 PM EST DU Navas placed successful outbound call to patient for pre-visit planning. Patient name and confirmed. Patient confirms appt date and time, and has transportation arrangements. Biggest concern for appointment at this time is will discuss it with provider in visit. Patient advised to bring to appointment a photo id and insurance card. Appropriate screenings completed in anticipation of appointment. SDOH positive. Patient looking for assistance with Housing(Living with her daughter) and Transportation. Referral will be placed. documented in this encounter Plan of Treatment Upcoming Encounters Date Type Department Care Team (Late st Contact Info) Description 01/26/2025 2:30 PM EST Office Visit [facility] ADULT DENTAL [address] [place] [address] Saurabh Mayers, DMD [address] [place] [address] 02/03/2025 1:30 PM EST Office Visit [facility] MEDICINE [address] [place], [place] [phone] Keturah Aguilar FNP [address] [place] [address] documented as of this encounter Visit Diagnoses Not on filedocumented in this encounter Additional Health Concerns Assessment Noted Time PHQ-9 Depression Total Score: 3 02/29/20 24 2:30 PM EDT documented as of this encounter Care Teams Accounting Generalist Relationship Specialty Start Date End Date Keturah Aguilar FNP [address] [place] [address] PCP - General Family Medicine 09/29/24 documented as of this encounter
--- OUTSIDE RECORDS SUMMARY | 2024-12-26 18:19 | XMS_ITS | Patient Health Record ---
Author Organization Rafal Bal MD PA Address [address] [facility] [address] [place] [address] Support Name Relationship Address Phone VIRI Lesvia Guarantor Unknown [phone] Allergies Allergen (clinical drug ingredient) Drug/Non Drug Allergy documented on EMR Reaction Allergy Type Onset Date Status acetaminophen / hydrocodone Hydrocodone-Acetamino phen rash Drug Allergy Active Reason For Referral No Information Medications Medication SIG (Take, Route, Frequency, Duration) Notes Start Date End Date Status Imitrex 25 MG 1 tablet at least 2 hours between doses as needed Orally Twice a day for 30 days Active Social History Tobacco Use: Social History Observation Description Date Details (start date - stop date) Never Smoker NA - NA Tobacco Use/Smoking Question Answer Notes Are you a nonsmoker Alcohol Screen (Audit-C) Question Answer Notes Did you have a drink containing alcohol in the p ast year? No Points 0 Interpretation Negative Problems Problem Type SNOMED Code ICD Code Onset Dates Problem Status W/U Status Risk Notes Problem Migraine variant with headache (disorder) (440624065) Migraine headache (G43.901) Active confirmed Problem 999078655 BMI 30.0-30.9,adult (Z68.30) Active confirmed Problem 2789691 Migraine with aura and without status migrainosus, not intractable (G43.109) Active confirmed Problem 908850956 Abnormal mammogram of both breasts (R92.8) Active confirmed Plan Of Treatment Pending Test Test Name Order Date Ultrasound : Breasts, bilateral 03/01/20 21 MAMMOGRAM, SCREENING 01/31/2021 Future Test Test Name Order Date Thyroid Panel With TSH 01/31/2021 CBC With Differential/Platelet FSH and LH 01/31/2021 GARY Comprehensive Panel 01/31/2021 Lipid Panel With LDL/HDL Ratio Comp. Metabolic Panel (14) 01/31/2021 Insurance Providers Payer Name Payer Address Payer Phone Subscriber Number Group Number Insured Name Patient Relationship to Insured Coverage Start Date Coverage End Date [employer] and [employer] [facility] [address] [place] [address] [id number] Lesvia MEREDITH Self - patient is the insured Medical (General) History Medical History History ICD Code Migraine headache G43.901 Hospitalization History Reason Date(Month/Year) Tip--cellulitis caused by bug bite 12/18
--- OUTSIDE RECORDS SUMMARY | 2024-12-26 18:19 | XMS_ITS | Encounter Summary ---
Author Organization [employer] Address [address] [facility] [address] [place] [address] Care Team Providers Care Microbiology Lab Analyst Name Role Phone Keturah Aguilar COATING MACHINE FEEDER Primary Care Provider [phone] Reason for Visit * Reason Onset Date Comments Chart Prep 12/13/2024 Encounter Details Date Type Department Care Team ([facility] st Contact Info) Description 12/13/2024 Telephone [facility] MEDICINE [address] [place] [address] Clair Colon [place] Chart Prep Social History Tobacco Use Types Packs/Day Years [...] with others, in a hotel, in a jail, living outside on the street, on a [...] AM EDT documented as of this encounter Miscellaneous Notes * Telephone Encounter - Clair Colon [place] - 12/13/2024 12:59 PM EST Chart Prep Labs: not applicable Images: done Vaccines due: Covid Due, Tdap Due, Flu Due, and Shingles in pharmacy Due Referrals: Orthopedics pending app12/16/24 at 2 Pm Screenings: Colonoscopy and Cervical cancer Overdue care gaps: [employer] documented in this encounter Plan of Treatment Upcoming Encounters Date Type Department Care Team (Late st Contact Info) Description 01/26/2025 2:30 PM EST Office Visit [facility] ADULT DENTAL [address] [place] [address] Saurabh Mayers, DMD [address] [place] [address] 02/03/2025 1:30 PM EST Office Visit [facility] MEDICINE [address] [place] [address] Keturah Aguilar FNP [address] [place] [address] documented as of this encounter Visit Diagnoses Not on filedocumented in this encounter Additional Health Concerns Assessment Noted Time PHQ-9 Depression Total Score: 3 02/29/20 24 2:30 PM EDT documented as of this encounter Care Teams Microbiology Lab Analyst Relationship Specialty Start Date End Date Keturah Aguilar FNP [address] [place] [address] PCP - General Family Medicine 09/29/24 documented as of this encounter
--- OUTSIDE RECORDS SUMMARY | 2024-12-26 18:19 | XMS_ITS | Clinical Summary ---
Author Organization [employer] Address [address] [place] [address] Care Team Providers Care Devops Name Role Phone Keturah Aguilar [facility] Primary Care Provider [phone] Allergies No known active allergies Medications * This document contains information received from the source organization and may not represent a complete record from that organization. loratadine (Claritin) 10 MG tablet TOME [place] TABLETA POR V A ORAL TODOS LOS D (INSURANCE) 10/12/20 23 Active famotidine (Pepcid) 40 MG tablet TOME [place] TABLETA TODOS LOS D 10/12/20 23 Active EPINEPHrine (Epipen) 0.3 MG/0.3ML injection syringe Inject 0.3 mL (0.3 mg) as directed 1 (one) time if needed for anaphylaxis for up to 2 doses. Inject into upper leg. Call 911 after use. 1 each 1 12/30/19 24 Active Diclofenac Sodium 1 % gelIndication s:Thumb pain, right Apply topically to affected areas twice daily 150 g 1 10/07/20 24 Active Xolair 300 MG/2ML solution prefilled syringe Inject 300 mg as directed every 28 (twenty-eight) days. 12/05/19 25 Active methylPREDNIS olone (Medrol Dospak) 4 MG tablets Follow schedule on package instructions 21 tablet 12/30/19 24 025 Discontinued(M ed list cleanup (will not trigger notification to Pharmacy)) Active Problems Problem Noted Date Diagnosed Date Adjustment disorder with depressed mood 12/23/19 25 Assessment & Plan (12/26/2024 10:59 AM EST): During IBH Consult Lesvia presenting with depressed mood, Tearful, crying spells , irritable mood, loss of interests/pleasure , sense of isolation/loneliness , isolating, change in appetite or weight reduce appetite, changes in sleep difficulty falling asleep and difficulty staying asleep , fatigue/loss of energy, inappropriate/excessive guilt , difficulty concentrating; for a period of 0-6 mo, for most or all symptoms in the context of divorce/separation and family issues. Lesvia reports feeling depressed lately. Triggers identified as family issues and ending her romantic relationship. Her mother's anniversary was yesterday which also increase depressive symptoms. Lesvia is aware of coping strategies that work for her- walking at the mall, attending christianity- she will continue using strategies before seeking out for MH services. clinician engaged patient with active/reflective listening. Reviewed and assessed for risk, current stressors and protective factors using open-ended questions. Explored strategies to utilize in daily routine to decrease her sxs. Pt declined OP referral at this time. Not interested in starting medication. clinician will provide additional support during next medical appointment. Provided [facility] numbers. Sinusitis 09/20/2024 Assessment & Plan (09/20/2024 11:42 AM EDT): -Supportive care advised. -ER precautions discussed. -Seek medical attention for worsening symptoms. Viral upper respiratory tract infection with cou gh 02/18/2024 Assessment & Plan (09/20/2024 11:41 AM EDT): COVID, Flu and Strep negative. -No evidence of respiratory distress. Symptoms mild. -No evidence of dehydration. -Supportive care advised. -Isolation recommendations discussed. -ER precautions discussed. -Seek medical attention for worsening symptoms. Idiopathic urticaria 02/17/2024 Overview (02/17/2024): Seen by Rheum 02/11/24 - additional labs ordered for future flare Pending derm and allergy appts Hyperlipidemia 08/07/2022 Menopausal symptom 03/05/2022 Migraine 03/05/2022 Onychomycosis 03/05/2022 Encounters * This document contains information received from the source organization and may not represent a complete record from that organization. Date Type Department Care Team Description 12/23/2024 1:00 PM EST Office Visit [address] [address] Keturah Aguilar FNP Well adult health check (Primary Dx) 12/14/2024 Patient Outreach [address] [address] Keturah Aguilar FNP Care Coordination (CH[facility] outreach for SDOH PT-1 and food needs-referral completed /) 12/14/2024 Patient Outreach [address] [address] Keturah Aguilar FNP Pre-visit Planning (SDOH screening positive and Tobacco screening negative) 12/13/[address] [address] Clair Colon [place] Chart Prep 11/18/2024 Telephone [facility] [address] [address] Rebeca Nur, VINCENT Results 11/16/2024 Orders Only [facility] [address] [address] Wilma Dawson FNP Right carpal tunnel syndrome (Primary Dx) 10/20/2024 Travel 10/14/[address] [address] Nathalie Marie [place] xray results given to pt 10/13/[address] [address] Keturah Aguilar FNP Results 10/12/2024 Telephone [facility] [address] [place] [address] Wilma Dawson FNP xray results 10/07/2024 3:40 PM EST Office Visit [facility] [address] [address] Wilma Dawson FNP Numbness and tingling in right hand (Primary Dx); Thumb pain, right from Last 3 Months Immunizations Name Administration Dates Next Due DT (pediatric) 11/03/1983,12/11/1981,01/24/1981 Hep A, Adult 09/05/2014,02/27/2014 Hep B, adult 12/11/2014,05/25/2014,02/27/2014 Influenza injectable quadriv alent IIV4 with preservative 10/19/2017,12/03/2015 Influenza injectable quadriv alent preservative free 08/07/2022,11/27/2016 Influenza, IIV3, injectable 09/05/2014, 0 Influenza, Split (incl. lauryn fied surface antigen) 08/18/2013,12/06/2012 MMR 12/01/1992,11/03/1980 OPV 11/03/1983,01/24/1981,12/11/1980 Pfizer Covid-19 Vaccine 12+ 10/27/2022 TD (adult), 2 Lf tetanus tox oid, preservative free, adsorbed 07/19/2004 Tdap 04/06/2012 Family History Medical History Relation Name Comments Brain Aneurysm Brother Throat cancer Father Aneurysm Mother Multiple sclerosis Other Relation Name Status Comments Brother Father Mother Other Social History Tobacco Use Types Packs/Day Years Used Date Smoking Tobacco: Never Passive Smoke Exposure: Never Smokeless Tobacco: Never Tobacco Cessation:Counseling Given: Not Answered Alcohol Use Standard Drinks/Week Comments Not Currently 0 (1 standard drink = 0.6 oz pur e alcohol) Depression Answer Date Recorded Patient Health Questionnaire-9 Score 6 12/23/2024 Patient Health Questionnaire-9 Score 6 12/23/2024 Last PHQ-9: Questionnaire Data Not on file 0 12/23/2024 Housing Stability Answer Date Recorded What is your housing situation today? I do not have housing (Staying with others, in a hotel, in a correction, living outside on the street, on a [...] Answer Date Recorded Patient Health Questionnaire-2 Score 1 12/23/2024 Internet Access Answer Date Recorded Internet Access Q1 Yes 12/14/2024 Internet Access Q2 Not on file 12/14/2024 Comments Unknown Sex and Gender Information Value Date Recorded Sex Assigned at Female 09/29/2022 10:15 AM EDT Legal Sex Female 10:15 AM EDT Gender Identity Female 09/29/2022 10:15 AM EDT Sexual Orientation Straight 09/29/2022 10 :15 AM EDT Last Filed Vital Signs Vital Sign Reading Time Taken Comments Blood Pressure 131/77 12/23/2024 1:09 PM EST Pulse 101 12/23/2024 1:09 PM EST Temperature 36.5 ??C (97.7 ??F) 12/23/2024 1:09 PM ES T Respiratory Rate 16 12/23/2024 1:09 PM EST Oxygen Saturation 100% 10/07/2024 3:27 PM EST Inhaled Oxygen Concentration - - Weight 79.7 kg (175 lb 12.8 oz) 12/23/2024 1:09 PM EST Height 165.1 cm (5' 5 ) 12/23/2024 1:09 PM EST Body Mass Index 29.25 12/23/2024 1:09 PM EST Plan of Treatment Upcoming Encounters Date Type Department Care Team (Late st Contact Info) Description 01/26/2025 2:30 PM EST Office Visit [facility] [address], [place] [phone] Saurabh Mayers DMD [address] [place] [address] 02/03/2025 1:30 PM EST Office Visit [facility] [address] [place] [address] Keturah Aguilar FNP [address] [place] [address] Health Maintenance Due Date Last Done Comments CT Colonography 1966 Colonoscopy 1966 Colorectal Cancer Screening 1966 FIT DNA/Cologuard 1966 FIT 1966 FOBT 1965 HIV Screening 1965 Sigmoidoscopy 1965 Hepatitis C Screening 1984 Pap Smear 1987 Zoster Vaccines (1 of 2) 2016 Cervical Cancer Screening 08/12/2021 HPV/Cotest 08/12/2021 08/12/2016 DTaP/Tdap/Td Vaccines (2 - Td or Tdap) 04/06/2022 04/06/2012, 07/19/2004 COVID-19 Vaccine ( season) 2024 10/27/2022, 10/31/2021, 04/19/2021, Additional history exists Influenza Vaccine (#1) 2024 , 10/19/2017, 11/27/2016, Additional history exists SDOH Screening 12/14/2025 12/14/2024 Alcohol/Substance Use Screening 12/23/2025 12/23/2024 Depression Screening 12/23/2025 12/23/2024, 12/23/19 25 Tobacco Screening 12/23/2025 12/23/2024 Mammogram 03/25/2026 03/25/2024, 07/22/2019 RSV Patients and Patients Aged 60 years or older (1 - 1-dose 75+ series) 2041 IPV Vaccines Completed 11/03/1983, 01/01, 12/11/1980 Hepatitis A Vaccines Aged Out 09/05/2014, 02/28/20 14 No longer eligible based on patient's age to complete this topic Hepatitis B Vaccines Completed 12/11/2014, 05/25/2014, 02/27/2014 HIB Vaccines Aged Out No longer eligi ble based on patient's age to complete this topic HPV Vaccines Aged Out No longer eligi ble based on patient's age to complete this topic Meningococcal Vaccine Aged Out No haley kathy eligible based on patient's age to complete this topic Pneumococcal Vaccine: Pediatrics (0 to 5 Years) and At-Risk Patients (6 to 64 Years) Aged Out No longer eligible based on patient's age to complete this topic RSV under 20 months Aged Out No longe r eligible based on patient's age to complete this topic Rotavirus Vaccines Aged Out No longer eligible based on patient's age to complete this topic Procedures Procedure Name Priority Date/Time Associated Diagnosis Comments BASIC METABOLIC PANEL Routine 12/26/2024 1:40 PM EST Well adult health check CBC WITH AUTO DIFFERENTIAL Routine 12/26/2024 1:40 PM EST Well adult health check XR HAND 3+ VIEWS RIGHT Routine 9:06 AM EST Thumb pain, right BI MAMMOGRAM SCREENING TOMOSYNTHESIS BILATERAL Routine 03/25/2024 3:41 PM EDT ZZZ HISTORICAL HPV MRNA E6/E7 Routine 08/12/2016 9:55 AM EDT from Last 3 Months or Most Recently Relevant to Health Maintenance Results * CBC auto differential (12/26/2024 1:40 PM EST) White Blood Count 5.5 4.8 - 10.8 X10*3/uL [facility] Red Blood Count 4.30 4.20 - 5.50 X10*6/uL [facility] Hemoglobin 12.0 12.0 - 16.0 g/dl [facility] Hematocrit 38.0 37.0 - 47.0 % [facility] Mean Corpuscular Volume 88.4 80.0 - 98.0 fL [facility] Mean Corpuscular Hemoglobin 27.9 27.0 - 33.0 pg [facility] Mean Corpuscular HGB Conc 31.6 31.0 - 35.0 g/dl [facility] Red Cell Distribution Width 14.6 11.0 - 16.0 % [facility] Platelet Count 279 160 - 400 X10*3/uL [facility] Mean Platelet Volume 10.6 9.4 - 12.3 fL [facility] Neutrophils Percent Auto 56.8 45 - 73 % [facility] Imm Gran Pct Auto 0.2 0.0 - 0.4 % [facility] Lymphocytes Percent Auto 32.7 20 - 40 % [facility] Monocytes Percent Auto 7.8 2 - 11 % [facility] Eosinophils Percent Auto 1.8 0 - 4 % [facility] Basophils Percent Auto 0.7 0 - 2 % [facility] NRBC Pct Auto 0.0 0.0 - 0.2 /100WBC [facility] Neutrophils Absolute Auto 3.1 2.0 - 8.3 x10*3/uL [facility] Imm Gran Abs Auto 0.01 0.00 - 0.03 X10*3/uL [facility] Lymphocytes Absolute Auto 1.8 1.2 - 4.9 X10*3/uL [facility] Monocytes Absolute Auto 0.4 0.1 - 1.2 X10*3/uL [facility] Eosinophils Absolute Auto 0.1 0.0 - 0.4 X10*3/uL [facility] Basophils Absolute Auto 0.0 0.0 - 0.2 X10*3/uL [facility] NRBC Abs Auto 0.000 0.0 - 0.012 X10*3/uL [facility] Blood Venous blood specimen / Unknown 12/26/2024 1:40 PM EST 12/26/2024 4:23 PM EST us Keturah Aguilar [facility] LAB BLOOD ORDERABLES Final Res ult [facility] [address] [place] [address] [phone] * (ABNORMAL) Basic Metabolic Panel (12/26/2024 1:40 PM EST) Sodium 138 135 - 145 mmol/L [facility] Potassium 3.7 3.3 - 5.1 mmol/L [facility] Chloride 108 96 - 108 mmol/L [facility] Carbon Dioxide 24 22 - 29 mmol/L [facility] Anion Gap 10(L) 12 - 20 [facility] Urea Nitrogen (BUN) 17(H) 9 - 16 mg/dL [facility] Creatinine, Serum 0.81 0.5 - 1.4 mg/dL [facility] Estimated Glomerular Filt Rate >60 [facility] Comment:Chronic Kidney Disea se: Estimated GFR < 60 mL/min/1.33i4Ggephk Kidney Disease: Estimated GFR < 15 mL/min/1.73m2 Glucose 112 60 - 115 mg/dL [facility] Calcium 9.9 8.4 - 10.2 mg/dL [facility] Blood Venous blood specimen / Unknown 12/26/2024 1:40 PM EST 12/26/2024 4:23 PM EST us Keturah Aguilar TRAUMA MANAGER LAB BLOOD ORDERABLES Final Res ult [facility] [address] [place] [address] [phone] * XR Hand 3+ Views Right (10/10/2024 9:06 AM EST) Anatomical Region Laterality Modality Upper Extremities, Hand Right Radiogra phic Imaging 10/10/2024 9:06 AM EST Narrative 10/10/2024 1:23 PM EST ? [facility] ?[address] ?[place] [address] ?XRay Report ? Signed ? Patient: Josh Altreche,Lesvia ?MR#: ?? [id number] ? : 1965 ?Acct:[id number] ? Age/Sex: 59 / F ?ADM Date: 11/11/24 ? Loc: HO.XRAY ? Attending Dr: Wilma Mchenry TRAUMA MANAGER ? Ordering Physician: Wilma Dawson TRAUMA MANAGER ?? Date of Service: 10/10/24 ?? Procedure(s): XR hand RT min 3V ?? Accession Number(s): [id number] ? cc: Maris Diaz COMMUNICATIONS ENGINEERING TECHNICIAN; Wilma Dawson TRAUMA MANAGER ? EXAMINATION: ?? XR HAND 3 OR MORE VIEWS RIGHT ? CLINICAL INFORMATION: ?? , Acute right thumb pain ? COMPARISON: ?? None available at the time of this dictation. ? TECHNIQUE: ?? Frontal lateral oblique views of the hand were obtained. 3 views ? FINDINGS: ?? There is a small area of chip fracture avulsion from the dorsal aspect ?? of the distal phalanx second finger indeterminant age. Mild ?? degenerative osteoarthritic changes involving distal interphalangeal ?? joints second and third finger. Radiocarpal, intercarpal, ?? carpometacarpal, metacarpophalangeal and interphalangeal joints are ?? intact. There are no osteolytic or osteoblastic lesions. There are no ?? bone erosions. Surrounding soft tissue unremarkable. ? XR/XR hand RT min 3V ?? IMPRESSION: ? * ??Small area of chip fracture from the dorsal aspect of the distal ?? phalanx second finger indeterminant age. ? * ??Underlying mild DJD. ? Electronically signed by: ??Surya Conroy MD ??10/10/2024 01:20 PM EST ? Dictated By: ?Surya Conroy MD ? Signed By: ?<Electronically signed by Surya Conroy MD in OV> ?10/10/24 1320 ? DD/ 0906 ? TD/TT: 10/10/24923 ? Shipping And Receiving Associate: HS ? Procedure Note Sushma, Image - 10/10/2024 [place] [address] XRay Report Signed Patient: Lesvia XieMR#: [id number] : 1965Acct:[id number] Age/Sex: 59 / FADM Date: 10/10/24 Loc: [facility] Attending Dr: Wilma ROBINS Ordering Physician: Wilma Dawson Date of Service: 10/10/24 Procedure(s): XR hand RT min 3V Accession Number(s): [id number] cc: Maris Diaz COMMUNICATIONS ENGINEERING TECHNICIAN; Wilma Dawson EXAMINATION: XR HAND 3 OR MORE VIEWS RIGHT CLINICAL INFORMATION: , Acute right thumb pain COMPARISON: None available at the time of this dictation. TECHNIQUE: Frontal lateral oblique views of the hand were obtained. 3 views FINDINGS: There is a small area of chip fracture avulsion from the dorsal aspect of the distal phalanx second finger indeterminant age. Mild degenerative osteoarthritic changes involving distal interphalangeal joints second and third finger. Radiocarpal, intercarpal, carpometacarpal, metacarpophalangeal and interphalangeal joints are intact. There are no osteolytic or osteoblastic lesions. There are no bone erosions. Surrounding soft tissue unremarkable. XR/XR hand RT min 3V IMPRESSION: * Small area of chip fracture from the dorsal aspect of the distal phalanx second finger indeterminant age. * Underlying mild DJD. Electronically signed by: Surya Conroy MD 10/10/2024 01:20 PM EST Dictated By: Surya Conryo MD Signed By: <Electronically signed by Surya Conroy MD in OV> 10/10/24 1320 DD/ 0906 TD/TT: 10/10/24 0924 Shipping And Receiving Associate: [facility] TRAUMA MANAGER IMG XR PROCEDURES Final Resul t * BI Mammogram Screening Tomosynthesis Bilateral (03/25/2024 3:41 PM EDT) Anatomical Region Laterality Modality Breast Bilateral Mammography 03/25/2024 3:41 PM EDT Narrative 04/24/2024 5:57 AM EDT ? [facility] [place] ? [address] ?[place] [address] ? Mammography Report ? Signed ? Patient: Josh Altreche,Lesvia ?MR#: ?? [id number] ? : 1965 ?Acct:[id number] ? Age/Sex: 58 / F ?ADM Date: 04/26/24 ? Loc: HO.MAMMO ? Attending Dr: Maris Diaz COMMUNICATIONS ENGINEERING TECHNICIAN ? Ordering Physician: Maris Diaz COMMUNICATIONS ENGINEERING TECHNICIAN ?Results: 1Negativ ?? e ? Date of Service: 03/25/24 ?Follow Up: 1 Year From Orig ?? inal Mammogram ? Procedure(s): MM tomosynthesis screening BI ?? Accession Number(s): [id number] ? cc: Maris Diaz COMMUNICATIONS ENGINEERING TECHNICIAN ? EXAMINATION: ?? MM SCREENING DIGITAL BREAST TOMOSYNTHESIS, BILATERAL ? CLINICAL INFORMATION: ? Screening. Asymptomatic. ? COMPARISON: ?? Mammography: This study is compared with prior exams dating back to ?? 2017. ? TECHNIQUE: ?? Digital breast tomosynthesis is performed in both the craniocaudal and ?? mediolateral oblique views along with computer-aided detection (CAD). ?? Synthesized 2D images are generated from the tomosynthesis. ? FINDINGS: ?? The breasts are heterogeneously dense, which may obscure small masses ?? (ACR BI-RADS breast composition Category c). ? There are no significant masses, abnormal calcifications, or other ?? abnormalities. ? MM/MM tomosynthesis screening BI ?? IMPRESSION: ?? No mammographic evidence of malignancy. ? ASSESSMENT: ? BI-RADS BI-RADS 1 - Negative ? RECOMMENDATION: ?? Routine annual mammography screening. ? 1 year F/U ? This examination should not preclude the clinical evaluation of a ?? suspicious palpable abnormality. ? This patient's information was entered into a reminder system with a ?? target due date for their next mammogram. ? Dictated By: ?Jamaica Muñoz MD ? Signed By: ?<Electronically signed by Jamaica Muñoz MD in OV> ? 04/24/24 0553 ? DD/ 1541 ? TD/TT: ? Shipping And Receiving Associate: ? Procedure Note Donotuseinterpreter, Image - [facility] [address] [place] [address] Mammography Report Signed Patient: Lesvia XieMR#: [id number] : 1965Acct:[id number] Age/Sex: 58 / FADM Date: 03/25/24 Loc: HO.MAMMO Attending Dr: Maris Diaz NP Ordering Physician: Maris Diaz NPResults: 1Negativ e Date of Service: 03/25/24Follow Up: 1 Year From Orig inal Mammogram Procedure(s): MM tomosynthesis screening BI Accession Number(s): [id number] cc: Maris Diaz NP EXAMINATION: MM SCREENING DIGITAL BREAST TOMOSYNTHESIS, BILATERAL CLINICAL INFORMATION: Screening. Asymptomatic. COMPARISON: Mammography: This study is compared with prior exams dating back to 2017. TECHNIQUE: Digital breast tomosynthesis is performed in both the craniocaudal and mediolateral oblique views along with computer-aided detection (CAD). Synthesized 2D images are generated from the tomosynthesis. FINDINGS: The breasts are heterogeneously dense, which may obscure small masses (ACR BI-RADS breast composition Category c). There are no significant masses, abnormal calcifications, or other abnormalities. MM/MM tomosynthesis screening BI IMPRESSION: No mammographic evidence of malignancy. ASSESSMENT: BI-RADS BI-RADS 1 - Negative RECOMMENDATION: Routine annual mammography screening. 1 year F/U This examination should not preclude the clinical evaluation of a suspicious palpable abnormality. This patient's information was entered into a reminder system with a target due date for their next mammogram. Dictated By: Jamaica Muñoz MD Signed By: <Electronically signed by [place] Muñoz MD in OV> 04/24/24 0553 DD/ 1541 TD/TT: Shipping And Receiving Associate: Maris Diaz TRAUMA MANAGER IMG BI PROCEDURES Final Result * HPV mRNA E6/E7 (08/12/2016 9:55 AM EDT) HPV mRNA E6/E7 Not Detected NOT DETECTED [facility] Comment: This assay detects E6/E7 viral messenger RNA (mRNA) from 14 high-risk HPV types (16,18,31,33,35,39,45,51, 52,56,58,59,66,68). This test was performed using the APTIMA(R) TMA HPV Assay ([employer] For additional information, please refer to http://education.BlogCN/faq/GFP642c6 Test Performed by [employer] [facility], [address] [place] [address] Greg Kay M.D., Ph.D., Director of Laboratories , [facility] [id number] Please note: ??Effective 08/11/2016, HPV testing will be performed using [employer]'s APTIMA test which targets mRNA. Detecting mRNA instead of DNA, as in older methods, offers significant improvements in specificity. 08/12/2016 9:55 AM EDT us Natasha Alberts NP HISTORICAL/NON ORDERABLE LABS Fi nal Result [facility] [address] from Last 3 Months or Most Recently Relevant to Health Maintenance [facility] C[facility] HSN [facility] MEDICAID STAND ADULT Care Teams Devops Relationship Specialty Start Date End Date Keturah Aguilar FNP [address] [place] [address] PCP - General Family Medicine 09/29/24
--- OUTSIDE RECORDS SUMMARY | 2024-12-26 18:20 | XMS_ITS | Data Portability ---
Author Organization [place] [facility], [facility] Address [address] [place] [id number] Assessment No assessment recorded. Plan of Treatment Reminders Order Date Submit Date Provider Last Modified By Organization Details Last Modified Time Details Appointments None recorded. Lab erythrocyte sedimentati on rate by westergren method [address] [facility], [address], [place], [address], 3 19:22:29 C-reactive protein, quantitativ e, serum or plasma [address] [facility], [address], [place], [address], 3 19:22:28 Referral None recorded. Procedures None recorded. Surgeries None recorded. Imaging MRI, brain, w/o contrast - MRI brain WO; headaches [address] [facility], [facility], All Locations, [place], [address], 3 12:09:26 XR, finger(s) 2022 023 [email or web address] [facility], [facility], All Locations, [place], [address], 4 12:03:53 Medication Orders nortriptyli ne 25 mg capsule 2022 023 PANA[facility] #35696, [address], [place], [place], [id number], 3 09:22:27 rizatriptan 10 mg tablet 2022 023 [facility] #37634, [address], [place], [place], [id number], 3 09:22:27 prednisone 10 mg tablet 2022 023 [facility] #91800, [address], [place], [place], [id number], 3 15:12:49 terbinafine HCl 250 mg tablet 2022 023 [facility] #33698, [address] [place], [id number], 3 15:47:43 ketoconazol e 2 % topical cream 2022 023 [facility] #70768, [address] [place], [id number], 3 15:47:44 ketoconazol e 2 % topical cream [address] [facility]87503, [address], [id number], 3 18:55:36 cetirizine 10 mg tablet 2022 023 [facility] #57844, [address] [place], [id number], 3 14:31:54 montelukast 10 mg tablet 2022 023 [facility] #49560, [address], [id number], 14:31:51 Patient TargetsNo targets recorded. Patient Instructions Encounter Date Encounter Id Patient Instructions Last Modified By Organization Details Last Modified Time 03/09/2023 [id number] This note was completed using [employer] speech recognition software. Grammatical errors, random word insertions, pronoun errors and incomplete sentences are occasional consequences of this technology due to software limitations. If there are any questions or concerns about the content of this note or information contained within the body of this dictation, this should be addressed with me for clarification. Total visit time today was 45 minutes with greater than 50% of time spent face to face with patient in counseling the patient, medical management, and coordination of care. [email or web address] Not available 03/09/2023 09:02:24 08/10/2023 [id number] mamograf? ? ?a: sobre esta prueba - [mammogram: about this test] [email or web address] Not available 08/10/2023 15:14:49 starting a weigh t loss plan: care instructions [email or web address] Not available 08/10/2023 15:14:49 Anticipatory Guidance for preventive visits [email or web address] Not available 08/10/2023 15:14:49 call me if not better in few days. Risk, benefits and side effect of medication DW pt, all questions answered. [email or web address] Not available 08/10/2023 15:07:34 08/27/2023 [id number] call me if not better in few days. Risk, benefits and side effect of medication DW pt, all questions answered. [email or web address] Not available 08/27/2023 15:46:36 09/03/2023 [id number] urticaria: instrucciones de cuidado - [hives: care instructions] [email or web address] Not available 09/03/2023 14:31:28 Reason for Referral None Reported. Results Created Date Observation Date Name Description Value Unit Range Abnormal Flag Note LastModifiedBy Organization Detail LastModifiedTime 03/10/20 23 03/10/2023 CRP, C-MARISOL CTIVE PROTE IN CRP 0.32 mg/dL Adult refer ence range : <1 mg/dl is lacy l 1-5 mg/dl is mild infla mmati on 6-10 is sever e infla mmati on >10 prashant us procc ess is occur ing. Not Available [facility] [address], [place], [address], 03/10/2023 19:22:27 03/10/20 23 03/10/2023 SED RATE, WESTE RGREN sed rate, westergren_V 16 mm/HR 0-30 Not Available [facility] [address], [place], [address], 03/10/2023 19:22:28 03/10/20 23 03/10/2023 VENIP UNCTU RE results Compl ete Not Available [facility] [address], [place], [address], 03/10/2023 14:23:22 03/17/20 23 03/17/2023 MRI, brain , w/o contr ast INDICA TION: G43.70 9 Chroni c migrai ne w/o aura, not intrac table, w/o stat migr. TECHNI QUE: MRI BRAIN WITHOU T CONTRA ST. was intrav enousl y admini stered . Multip lanar multis equenc e exam. COMPAR MELECIO: None FINDIN GS: There is no eviden ce of hemorr nile or acute infarc t. Minima l perive ntricu lar hyperi ntensi ty small focal area 3 mm within the superf icial white matter right fronta l lobe presum ably reflec ts trace micros copic ischem ic type change likewi se 1 mm focus of simila r locati on on the left. No signif icant atroph y. There is no mass, there is no mass effect . There is no midlin e shift. There is no enhanc ing mass. The major intrac ranial arteri al flow voids appear mainta ined. Assess ment of the osseou s struct ures is limite d with MRI but there are no gross abnorm alitie s Incide ntal note is made of bilate ral henrry bullos a involv ing the middle turbin ates and minima l opacif icatio n of the ethmoi d air cells. IMPRES MIGUEL: Trace microv ascula r ischem ic change . Electr onical ly Signed By: Vini Preciado James Sign Date: [id number] [facility] All Locations, [place], [address], 10/21/2024 19:44:12 05/07/2005/07/2023 US, pelvi s, trans abdom inal + trans vagin al INDICA TION: Female 57 years - R10.2 Pelvic and perine al pain. TECHNI QUE: US PELVIC TRANSA BDOMIN AL AND TRANSV AGINAL . Transa bdomin al and transv aginal sonogr aphic images of the pelvis were obtain ed. Dopple r evalua tion was includ ed. COMPAR MELECIO: None. FINDIN GS: Uterus : The uterus measur es 6.3 x 3.1 x 3.6 cm. There is coarse hetero geneou s echote xture. There is a 2.2 x 2.8 x 2.9 cm fibroi d at the fundus . There is a 1.5 x 1.6 x 1.4 cm fibroi d in the lower uterin e segmen t. Endome trium: The endome trial canal measur es 0.4 cm. There is a 6 mm naboth madeline cyst. Adnexa : The right ovary measur es 1.5 x 0.9 x 1.1 cm. There is normal vascul ar flow. There is no mass or cyst. The left ovary measur es 1.6 x 1.3 x 1.3 cm. There is normal vascul ar flow. There is no mass or cyst. IMPRES MIGUEL: 1. Uterin e fibroi d change s. 2. Naboth madeline cyst. Electr onical ly Signed By: Quentin de leon D.O., Paul Sign Date: [id number] [facility] All Locations, [place], [address], 10/21/2024 19:42:18 06/04/20 23 05/22/2023 MAMMO , scree desi, tomos ynthe sis, bilat eral INDICA TION: Female 57 years - Screen ing mammog belgica. TECHNI QUE: SCREEN ING 3D BILATE RAL MAMMOG BELGICA WITH TOMOSY NTHESI S Bilate ral CC and MLO views of the breast s were obtain ed. Digita l breast tomosy nthesi s was perfor med in the CC and MLO planes . Comput er aided detect ion softwa re was utiliz ed. COMPAR MELECIO: February 09, 2021. MAMMOG BELGICA FINDIN GS: The breast parenc hyma is catego ry C: Hetero geneou sly dense Benign -appea ring calcif icatio ns bilate rally. There is no suspic ious asymme try. There is no yunior ectura l distor tion. There are no suspic ious microc alcifi cation s. No abnorm al skin thicke desi is noted. The nipple s are not retrac blane. IMPRES MIGUEL: No mammog raphic eviden ce for breast malign jasmin. The patien t will be notifi ed of these findin gs as per [employer] law. BI-RAD S catego ry: 2: Benign findin gs RECOMM ENDATI ONS: Annual screen ing mammog belgica. Notes: -The patien t's [place] fibrog landul ar tissue can obscur e an underl damian cancer on a mammog belgica. Up to 10% of breast cancer s are not visibl e in mammog raphic ally fatty breast s and up to 35% of breast cancer s are not visibl e in mammog raphic ally dense breast s. -Suppl ementa l annual breast screen ing ultras ound may be benefi cial for the detect ion of breast cancer in patien ts with mammog raphic ally dense breast s. -Patie nts with a greate r than 20% lifeti me risk of breast cancer qualif y for screen ing with breast MRI -Mammo graphy should be supple mented by routin e clinic al and monthl y self exams. A negati ve mammog belgica result should not deter biopsy of a clinic ally suspic ious lesion . Electr onical ly Signed By: Navjot Mendoza Michae l Sign Date: [id number] [facility] All Locations, [place], [address], 10/21/2024 19:46:20 Result Notes None recorded. Problems Name Problem SNOMED Code Status Onset Date Resolution Date Notes Provider Name and Address Organization Details Recorded Time Onychomycosis 963357233 Active 2021 Ana Feliz MD [address], [place], [address], [facility] [place] 14:33:06 Menopausal symptom 36731553 Active 2021 Ana Feliz MD [address], [place], [address], [facility], [facility] 14:33:43 Migraine 72479459 Active 2021 Ana Feliz MD [address], [place], [address], [facility] [place] 14:33:46 Hyperlipidemia 99744922 Active 2021 Ana Feliz MD [address], [place], [address], [facility] [place] 15:04:42 Problem Notes None recorded. Procedures Surgical History Date Name Laterality Status Provider Name and Address Organization Details Recorded Time 3 Date of Last Mammogram completed Prema Bineftaly [facility], [facility] 08/10/2023 14:19:53 3 Mammogram Screening completed Prema Bineftaly [facility], [facility] 08/10/2023 14:19:46 3 Breast/Pelvic/P ap - Medicare [id number] completed JOY HILARIO APRN [address], [place], [address], [facility], [facility] 01/29/2023 10:19:30 2 Walk-In Basic Visit completed Chato Arreguin MD [address], [place], [address], [facility] - [facility], [facility] 07/23/2022 17:44:48 0 [facility]opsy [facility] 03/05/2022 14:15:47 8 Colonoscopy completed Ana Feliz MD [address], [place], [address], [facility] - [facility], [facility] 01/15/2023 12:54:13 3 [facility] 03/05/2022 14:17:00 Imaging Results Imaging Date Name Status LastModified by Organization Details LastModified Time 03/17/2023 MRI, brain, w/o contrast completed [id number] [facility] All Locations, [place], [address], 10/21/2024 19:44:12 05/07/2023 US, pelvis, transabdominal + transvaginal completed [facility]_[id number] [facility] All Locations, [place], [address], 10/21/2024 19:42:18 05/22/2023 MAMMO, screening, tomosynthesis, bilateral completed [facility]_[id number] [facility] All Locations, [place], [address], 10/21/2024 19:46:20 Procedure Notes None recorded. Medical Equipment None Reported. Allergies No known drug allergies Medications Name Sig Start Date Stop Date Status Note LastModified by Organization Details LastModified Time prednisone 10 mg tablet 40mg po qd x 3 [id number] po qd x 3 [id number] po qd x 3 [id number] po qd x 3 day 08/24 completed Not Available Not Available Not Available atorvastati n 20 mg tablet Take 1 tablet every day by oral route for 90 days. 01/15 completed Not Available Not Available Not Available cetirizine 10 mg tablet Take 1 tablet every day by oral route for 30 days. 2022 active Not Available Not Available Not Avai lable sumatriptan 25 mg tablet TAKE ONE TABLET BY MOUTH TWO TIMES A DAY NEEDED AT LEAST TWO HOURS BETWEEN DOSES 08/07 completed Not Available Not Available Not Available rizatriptan 10 mg tablet TAKE 1 TABLET BY MOUTH DAILY NEEDED FOR MIGRAINE. MAY REPEAT IN 2 HOURS; LIMIT 2 TABLETS/ 24 HOURS active Not Available Not Available No t Available sumatriptan 50 mg tablet Take 1 tablet every day by oral route as needed. 01/15 completed Not Available Not Available Not Available nortriptyli ne 25 mg capsule Take 1 capsule every day by oral route at bedtime. 2022 active Not Available Not Available Not Avai lable ciclopirox 8 % topical solution APPLY TO THE AFFECTED AREA(S) BY TOPICAL ROUTE ONCE DAILY PREFERABL Y AT BEDTIME OR 8 HOURS BEFORE WASHING 01/15 completed Not Available Not Available Not Available terbinafine HCl 250 mg tablet Take 1 tablet every day by oral route for 14 days. 2022 active Not Available Not Available Not Avai lable montelukast 10 mg tablet Take 1 tablet every day by oral route for 30 days. 2022 active Not Available Not Available Not Avai lable ketoconazol e 2 % topical cream Apply 1 applicati on twice a day by topical route for 14 days. 2022 active Not Available Not Available Not Avai lable vitamin A 1,250 unit-ergoca lciferol (vitamin D2) 135 unit capsule Take 1 capsule every day by oral route. 01/15 completed Not Available Not Available Not Available topiramate 50 mg tablet Take 1 tablet twice a day by oral route for 30 days. 11/19 completed GI Not Available Not Available Not Available Ubrelvy 100 mg tablet Take 1 tablet as needed by oral route as directed. 01/15 completed Not Available Not Available Not Available Vitals Date Recorded Body height Provider Name an d Address Organization Details Last Updated DateTime 03/09/2023 165.1 cm Vince Eugene [facility], [facility] 03/09/2023 08:36:58 Date Recorded Respiratory rate Provider Name a nd Address Organization Details Last Updated DateTime 03/09/2023 19 /min Vince Eugene [facility], [facility] 03/09/2023 08:37:18 Date Recorded Body mass index (BMI) Body weight Provider Name and Address Organization Details Last Updated DateTime 03/09/2023 29.6 kg/m2 43653.44 g Vince Eugene [facility], [facility] 03/09/2023 08:45:34 Date Recorded Body temperature Provider Name a nd Address Organization Details Last Updated DateTime 03/09/2023 98 [degF] Vince Eugene [facility], [facility] 03/09/2023 08:45:41 Date Recorded Heart rate Provider Name an d Address Organization Details Last Updated DateTime 03/09/2023 88 /min Vince [facility], [facility] 03/09/2023 08:45:43 Date Recorded Oxygen saturation Oxygen saturation in Arterial blood by Pulse oximetry Provider Name and Address Organization Details Last Updated DateTime 03/09/2023 98 % 98 % Vince Eugene [facility], [facility] 03/09/2023 08:45:46 Date Recorded Body height Provider Name an d Address Organization Details Last Updated DateTime 08/10/2023 165.1 cm Prema Cotto [facility], [facility] 08/10/2023 14:18:37 Date Recorded Pain severity - 0-10 verbal numeric rating [Score] - Reported Provider Name and Address Organization Details Last Updated DateTime 08/10/2023 0 [facility] 08/10/2023 14:18:44 Date Recorded Body mass index (BMI) Body weight Provider Name and Address Organization Details Last Updated DateTime 08/10/2023 29.8 kg/m2 07575.03 g [facility] 08/10/2023 14:24:01 Date Recorded Heart rate Provider Name an d Address Organization Details Last Updated DateTime 08/10/2023 81 /min Prema Biagioli [place] [facility], [facility] 08/10/2023 14:24:09 Date Recorded Respiratory rate Provider Name a nd Address Organization Details Last Updated DateTime 08/10/2023 18 /min Prema Biagi[place] [facility], [facility] 08/10/2023 14:24:10 Date Recorded Oxygen saturation Oxygen saturation in Arterial blood by Pulse oximetry Provider Name and Address Organization Details Last Updated DateTime 08/10/2023 99 % 99 % Prema Biagioli [place] [facility], [facility] 08/10/2023 14:24:14 Date Recorded Body height Provider Name an d Address Organization Details Last Updated DateTime 08/24/2023 165.1 cm Prema Biagi[place] [facility], [facility] 08/24/2023 15:12:06 Date Recorded Pain severity - 0-10 verbal numeric rating [Score] - Reported Provider Name and Address Organization Details Last Updated DateTime 08/24/2023 0 Prema Biagioli [place] [facility] 08/24/2023 15:12:10 Date Recorded Body mass index (BMI) Provider Name and Address Organization Details Last Updated DateTime 08/24/2023 29.6 kg/m2 Prema Biagioli [place] [facility] 08/24/2023 15:15:47 Date Recorded Body weight Provider Name an d Address Organization Details Last Updated DateTime 08/24/2023 25506.44 g Prema Biagioli [place] [facility], [facility] 08/24/2023 15:15:48 Date Recorded Heart rate Provider Name an d Address Organization Details Last Updated DateTime 08/24/2023 85 /min Prema Biagioli [place] [facility], [facility] 08/24/2023 15:15:56 Date Recorded Respiratory rate Provider Name a nd Address Organization Details Last Updated DateTime 08/24/2023 18 /min Prema Biagioli [place] [facility] 08/24/2023 15:15:57 Date Recorded Oxygen saturation Oxygen saturation in Arterial blood by Pulse oximetry Provider Name and Address Organization Details Last Updated DateTime 08/24/2023 98 % 98 % Prema Biagioli [place] [facility], [facility] 08/24/2023 15:16:02 Date Recorded Body height Provider Name an d Address Organization Details Last Updated DateTime 08/27/2023 165.1 cm Prema Biagioli [place] [facility], [facility] 08/27/2023 15:25:37 Date Recorded Pain severity - 0-10 verbal numeric rating [Score] - Reported Provider Name and Address Organization Details Last Updated DateTime 08/27/2023 0 Prema Biagioli [place] [facility] 08/27/2023 15:25:41 Date Recorded Body mass index (BMI) Body weight Provider Name and Address Organization Details Last Updated DateTime 08/27/2023 29.6 kg/m2 75335.44 g Prema Biagioli [facility], [facility] 08/27/2023 15:30:49 Date Recorded Heart rate Provider Name an d Address Organization Details Last Updated DateTime 08/27/2023 83 /min Prema Biagioli [facility], [facility] 08/27/2023 15:31:08 Date Recorded Respiratory rate Provider Name a nd Address Organization Details Last Updated DateTime 08/27/2023 18 /min Prema Biagioli [facility], [facility] 08/27/2023 15:31:12 Date Recorded Oxygen saturation Oxygen saturation in Arterial blood by Pulse oximetry Provider Name and Address Organization Details Last Updated DateTime 08/27/2023 98 % 98 % Prema Biagioli [facility], [facility] 08/27/2023 15:31:16 Date Recorded Body height Provider Name an d Address Organization Details Last Updated DateTime 09/03/2023 165.1 cm Dailanis Nguyen [facility], [facility] 09/03/2023 14:12:44 Date Recorded Body mass index (BMI) Body weight Provider Name and Address Organization Details Last Updated DateTime 09/03/2023 29.3 kg/m2 95123.26 g Dailanis Nguyen [facility], [facility] 09/03/2023 14:12:49 Date Recorded Heart rate Provider Name an d Address Organization Details Last Updated DateTime 09/03/2023 76 /min Dailanis Nguyen [facility], [facility] 09/03/2023 14:13:06 Date Recorded Respiratory rate Provider Name a nd Address Organization Details Last Updated DateTime 09/03/2023 18 /min Fausto Nguyen [facility], [facility] 09/03/2023 14:13:10 Date Recorded Oxygen saturation Oxygen saturation in Arterial blood by Pulse oximetry Provider Name and Address Organization Details Last Updated DateTime 09/03/2023 98 % 98 % Fausto Nguyen [facility], [facility] 09/03/2023 14:13:13 Date Recorded Systolic blood pressure Diastolic blood pressure Provider Name and Address Organization Details Last Updated DateTime 03/09/2023 112 mm[Hg] 78 mm[Hg] Vince Knight [facility], [facility] 03/09/2023 08:45:36 Date Recorded Systolic blood pressure Diastolic blood pressure Provider Name and Address Organization Details Last Updated DateTime 08/10/2023 128 mm[Hg] 72 mm[Hg] Prema Cotto [facility], [facility] 08/10/2023 14:24:06 Date Recorded Systolic blood pressure Diastolic blood pressure Provider Name and Address Organization Details Last Updated DateTime 08/24/2023 120 mm[Hg] 72 mm[Hg] Prema Cotto [facility], [facility] 08/24/2023 15:15:52 Date Recorded Systolic blood pressure Diastolic blood pressure Provider Name and Address Organization Details Last Updated DateTime 08/27/2023 128 mm[Hg] 62 mm[Hg] Prema Cotto [facility], [facility] 08/27/2023 15:31:05 Date Recorded Systolic blood pressure Diastolic blood pressure Provider Name and Address Organization Details Last Updated DateTime 09/03/2023 120 mm[Hg] 70 mm[Hg] Fausto Nguyen [facility], [facility] 09/03/2023 14:12:54 Social History Question Answer Notes LastModified by Organizat ion Details LastModified Time Tobacco Smoking Status Never Smoker Serene santos [facility], [facility] 03/05/2022 14:14:10 Do You Have An Advance Directive? No Information n ot available 01/29/2023 What Is Your Level Of Alcohol Consumption? None Information not available 03/05/2022 Is Blood Transfusion Acceptable In An Emergency? Yes Information not available 01/29/2023 In The 14 Days Before Symptom Onset, Have You Had Close Contact With A Laboratory-confirm ed COVID-19 While That Case Was Ill? No Information n ot available 03/05/2022 In The 14 Days Before Symptom Onset, Have You Had Close Contact With A Person Who Is Under Investigation For COVID-19 While That Person Was Ill? No Information not available 03/05/2022 Have You Been To An Area Known To Be High Risk For COVID-19? No Information not available 07/23/2022 Are You Currently Employed? Yes Information not available 03/05/2022 What Type Of Diet Are You Following? REGULAR Information n ot available 03/05/2022 What Is Your Occupation? [employer] Information not available 03/05/2022 Which Of Your Hands Is Dominant? Right Information n ot available 01/29/2023 Alcohol Use No Informati on not available 03/05/2022 Do You Smoke? No Informa tion not available 03/05/2022 Year Quit Tobacco Use NA Information not available 07/23/2022 Do You Have A Medical Power Of Inspector Mechanical? No Information not available 01/29/2023 What Was The Date Of Your Most Recent Tobacco Screening? 08/27/2023 [email or web address] Information not available 08/27/2023 Do You Use Protection During Sex? Always Information not available 03/05/2022 What Is Your Relationship Status? Single Information not available 03/05/2022 Do You Use Your Seat Belt Or Car Seat Routinely? Yes Information not available 03/05/2022 Are You Sexually Active? Yes Information not available 03/05/2022 Do You Use Any Illicit Or Recreational Drugs? No Information not available 03/05/2022 Has Tobacco Cessation Counseling Been Provided? No Information not available 03/05/2022 Do You Have Any Dietary Restrictions? No Information not available 01/28/2023 Do You Or Have You Ever Used Any Other Forms Of Tobacco Or Nicotine? No Information not available 07/23/2022 Sex: Female Functional Status Question Answer Note LastModified by Organizat ion Details LastModified Time Do you have transportation difficulties? No Information not available 01/28/2023 Are you able to care for yourself? Yes Information n ot available 01/28/2023 What is your exercise level? Occasional Information not available 03/05/2022 Mental Status None recorded. Family History Relationship Description Onset Age of this Age Resolved Age Notes LastModified by Organization Details LastModified Time Father Malignant tumor of pharynx [email or web address] s Not available 03/05/2022 14:13:14 Mother Obstruction of vein [email or web address] s Not available 03/05/2022 14:13:41 Medical History Condition Response Headaches/Migraines Y Gynecological History Statement/Question Response Date of Last Pap Smear Date of Last Mammogram 06/04/2023 Obstetrics History GPAL:G 0 P 0 0 0 0 Immunizations Vaccine Type Date Status Note Provider Nam e and Address Organization Details Recorded Time Influenza, split virus, quadrivalent, PF 08/07/2022 completed Ana Feliz MD [address] [facility] [address], [place], [address], [facility] - [facility], [facility] 08/07/2022 15:47:40 COVID-19, mRNA, LNP-S, PF, 100 mcg/0.5mL dose or 50 mcg/0.25mL dose 03/29/2021 completed Not Available Counts include 234 beds at the [facility] 3 11:35:12 COVID-19, mRNA, LNP-S, PF, 100 mcg/0.5mL dose or 50 mcg/0.25mL dose 04/19/2021 completed Not Available [facility] 3 11:35:12 COVID-19, mRNA, LNP-S, PF, 100 mcg/0.5mL dose or 50 mcg/0.25mL dose 10/31/2021 completed Not Available [facility] 3 11:35:12 COVID-19, mRNA, LNP-S, PF, 30 mcg/0.3 mL dose 03/29/2021 completed Svitlana Lopez null, [facility], [facility] 07/23/2022 16:58:25 COVID-19, mRNA, LNP-S, PF, 30 mcg/0.3 mL dose 10/31/2021 completed Svitlana Lopez null, [facility], [facility] 07/23/2022 16:58:25 COVID-19, mRNA, LNP-S, PF, 30 mcg/0.3 mL dose 04/19/2021 completed Svitlana Lopez null, [facility], [facility] 07/23/2022 16:58:25 COVID-19, mRNA, LNP-S, bivalent, PF, 30 mcg/0.3 mL dose 10/27/2022 completed Fausto Nguyen [facility], [facility], [facility] 11/19/2022 08:49:25 Past Encounters Encounter ID Performer Location Encounter Start Date Encounter Closed Date Diagnosis/Indication Diagnosis SNOMED-CT Code Diagnosis ICD10 Code Diagnosis Note [id number] Ana Feliz MD [facility] [address] [facility] [address] [place] [address] 03/05/2022 13:51:57 03/05/2022 14:36:25 Migraine 68684884 G43.909 Does OK with PRN Advail Migrainere educated on dxeducated on Onychomycosis 893392672 B35.1 Left big toeEducate d on diagnosis as well as potential complicati ons/conseq uences if untreatedT reatment options discussed as well.Topic al treatment as below recommende d and patient agree Menopausal symptom 88839 002 N95.1 Educated on diff diagnosis as well as potential treatment. monitor recommende d and patient agree Anti-nucle ar factor detected 867885239 R76.8 positive on 2020had Skin changes at that timeshe was refer to Rheumatolo gist by Dr Bal but did not go.she decline to go to any specialist at this time [id number] Chato Arreguin MD [facility] [address] [place] [address] [place] [address] 07/23/2022 16:27:14 07/23/2022 17:53:34 Headache 31968047 R51.9 [id number] Ana Feliz MD [facility] [facility] [address] [address] 08/07/2022 14:30:49 08/07/2022 15:14:54 Hyperlipidemia 51361153 E78.2 New DxEducated on diagnosis as well as potential complicati ons/conseq uences if untreatedT reatment options discussed as well.Treat ment Atorvastat in 10mg po qd recommende d and patient agree Calcificat ion of basal ganglia 3379498528 1390070 G23.8 new finding on CTEducated on diff diagnosis as well as potential consequenc esNeuro consult recommende d and patient agree Migraine 45463716 G43.90 9 worsenchro nicher otc meds are not working any morerefer to neurologis tstart PRN sumatripta n PRN and schedule topamax as below for better control Influenza vaccine needed [id number] 106 Z23 [id number] Tomás Garcia APRN [facility] [address] [place] [address] 10/07/2022 15:16:14 10/07/2022 16:36:22 Migraine 55416756 G43.909 Unchangedc hronicher otc meds are not workingshe is not using topamax as indicatedw as refere to neurologis t but nor seen yetContinu es PRN sumatripta n and take topamax as indicated Hyperlipidemia 68586651 E78.2 LDL 136Betteri ncrease Atorvastat in to 20 mg po qd recommende d for better control and patient agreefi labs [id number] Ana Feliz MD [facility] [address] [place] [address] 11/19/2022 08:41:19 11/19/2022 11:26:30 Migraine 40946113 G43.909 Worsenchro nicher otc meds are not workingshe is not using topamax as indicated due to side effects on her Abdomen.wa s refere to neurologis t but nor seen yetDoes not feel well with Sumatripta nhold PRN sumatripta nadd trial of Ubrelvy DW her and recommende d [id number] Ana Feliz MD [facility] [address] [place] [address] 01/15/2023 12:08:37 01/15/2023 13:00:43 Migraine 53446884 G43.909 not betterchro nicher otc meds are not workingshe is not using topamax as indicated due to side effects on her Abdomen.wa s refere to neurologis t but nor seen yetDoes not feel well with Sumatripta nUbrelvy did not workawait Neurologis t consult Screening mammography 24 748300 Z12.31 [id number] JOY HILARIO APRN [facility] [address] [address] [place] [address] 01/29/2023 08:49:59 01/29/2023 10:34:15 Screening mammography 62960149 Z12.31 Pain in pelvis 21872470 R10.2 acuteunkno wn etiologyha ppens during sexI will obtain US pelvicmana gement based on the findings Screening for malignant neoplasm of cervix 482823996 Z12.4 Dyspareunia 47980452 N94 .10 as above Depression screening 171 759091 Z13.31 A Depression screening assessment was conducted during this encounter and all actions of this assessment and time elements up to 15 minutes were met [id number] VINCE RICHARDS DO [facility] [address] [facility] [address] [facility] [address] [place] [address] 03/09/2023 08:33:06 03/09/2023 09:44:50 Chronic migraine without aura 3292525556 01431 G43.709 Patient complains of increased headache pain over the past year. She states that she has a left temporal headache which is chronic and on almost daily basis. She has migraine escalation s 1-2 times per week. She has tried multiple medication s in the past which include Tylenol, Advil, topiramate , sumatripta n, Ubrelvy samples which were all ineffectiv e. Suspect combinatio n of possible tension type headache in addition to migraine which has become chronic. Will order MRI brain to assess brain structure. Patient did have a CT brain which showed no acute findings from 07/24/2022 however there was incidental finding of bilateral basal ganglia calcificat ion. Suspect this is less likely temporal arteritis or vasculitis as patient denies any vision changes or jaw pain or claudicati on. However for completene ss will order sed rate and CRP to assess inflammati on markers as well as MRI brain to assess for intracrani al abnormalit ies. Patient to start nortriptyl ine 25 mg daily at bedtime to help improve headache symptoms. Discussed side effects which include drowsiness , sedation, dry mouth, weight gain. Patient also start rizatripta n 10 mg daily as needed for migraine, can repeat in 2 hours, limit 2 tablets in 24 hours. Discussed side effects in detail. Patient to keep headache diary and avoid headache triggers. Recommend updated ophthalmol ogy evaluation regarding her vision as this may be a triggering factor for migraine for some people. Calcificat ion of basal ganglia [id number] 6284254 G23.[address] brain from 07/24/2022 which report indicated showing no acute findings, there was finding of incidental basal ganglia calcificat ion noted bilaterall y. This was reviewed personally with images. Suspect this is likely incidental and does not contribute to her headache symptoms. Will further assess with MRI brain. Patient to return to clinic for follow-up in 6 months or sooner if needed. [id number] Ana Feliz MD [facility] [address] [place] [address] 08/10/2023 14:06:05 08/10/2023 15:20:18 Adult health examination 440186396 Z00.01 Preventive visit done today. Anticipato ry guidance given as noted below.decl ined EKG Increased body mass index 58741976 Z68.29 elevated BMI. Discussed diet and better therapeuti c lifestyle changes. Diet education 44871871 Z71.3 as above Screening for malignant neoplasm of colon 542682212 Z12.11 UP TO DATE Screening mammography 24 140310 Z12.31 UP TO DATE Pruritic rash 66682381 L 28.2 AcuteEduca blane on diagnosis as well as potential complicati ons/conseq uences if untreatedT reatment options discussed as well.Treat ment with Prednisone recommende d and patient agree Vaccine de clined by patient 6545125568 02 Z28.21 [id number] Ana Feliz MD [address] [address] 08/24/2023 15:08:10 08/24/2023 15:40:27 Pruritic rash 03078525 L28.2 Betters/p treatment with Prednisone monitor recommende d and patient agree Screening for malignant neoplasm of colon 486008322 Z12.11 UP TO DATE Screening mammography 24 487385 Z12.31 UP TO DATE Influenza vaccination declined 772705982 Z28.21 Injury of finger 1884954 8 S69.92XA trauma with home front door 1 week agoeducate d on diff dxevaluate with X rayPRN Tylenol [id number] Ana Feliz MD [address] [address] 08/27/2023 15:24:43 08/27/2023 15:52:26 Injury of finger 66315422 S69.92XA trauma with home front door 1 week agoeducate d on diff dxshe declined X rayPRN Tylenol Screening for malignant neoplasm of colon 975920811 Z12.11 UP TO DATE Screening mammography 24 736957 Z12.31 UP TO DATE Influenza vaccination declined 549054207 Z28.21 Dermatophytosis 72215628 B35.9 AcuteEduca blane on diagnosis as well as potential consequenc es if untreatedT reatment options discussed as well.Treat ment as below recommende d and patient agree [id number] Tomás Garcia APRN [address] [address] 09/03/2023 13:47:45 09/03/2023 16:11:32 Pruritic rash 85394015 L28.2 Better s/p treatment finished at prednisone Urticaria 507301644 L50. 9 Patient was seen today for follow-up urticaria, disappear skin lesion, doing well Dermatophytosis 79116304 B35.9 Patient was seen last week for diagnosis dermatophy tosis, treated with terbinafin e, tablet, ketoconazo le topical cream, was seen today stated feeling better, disappear skin lesion doing well. Health Concerns Section Related Observation LastModified by Organization Detai ls LastModified Time None Recorded Concern Status LastModified by Organization Details LastModified Time None Recorded Advance Directives Directive N: Payers Encounter Date Sequence Insurance Name Policy Number Policy Buchanan Covered Member ID Buchanan Member ID Guarantor Name 03/09/2023 1 [employer] (HMO) [id number] Lesvia Josh [id number] Lesvia Josh 08/10/2023 1 [employer] (HMO) [id number] Lesvia Josh [id number] Lesvia Josh 08/10/2023 2 [id number] Lesvia Josh Lesvia Josh 08/24/2023 1 [employer] (HMO) [id number] Lesvia Josh [id number] Lesvia Josh 08/24/2023 2 [id number] Lesvia Josh Lesvia Josh 08/27/2023 1 [employer] (HMO) [id number] Lesvia Josh [id number] Lesvia Josh 08/27/2023 2 [place] [id number] Lesvia Josh Lesvia Josh 09/03/2023 1 [employer] (HMO) [id number] Lesvia Josh [id number] Lesvia Josh 09/03/2023 2 [place] [id number] Lesvia Josh Lesvia Josh Notes Date Note Type Note Provider Name and Address Organization Details Recorded Time 3 text/html This is a 57-year-old right-handed female presents for initial evaluation regarding headaches and basal ganglia calcifications seen on CT brain. Patient states that she gets headaches on the left side of the head. Symptoms have been constant and have been present for over 1 year. She has had migraine since teenage years. She has constant left oriental orthodox pain which is constant, can range from 5-9/10, sharp pain. She states that she had tried midi-gqj-pumdtpf Tylenol, Advil with no improvement. She has tried sumatriptan, topiramate, Ubrelvy which all have been ineffective. She states that she cannot tolerate the topiramate due to GI upset and nausea. She denies any vision changes with the headaches. She states that she has migraine escalations at least 1-2 times per week. They can be quite severe. She has light and sound sensitivity, nausea with the migrainous escalations. She states that she has seen manager location over 4 years ago which she states was a normal work-up. VINCE RICHARDS DO [address], [place], [address], [facility] 03/09/2023 09:23:22 3 text/html Extensive/Preventative ExamReported bypatient.Reason for Visit:extensive exam Problem list, past medical, surgical, social and family history are reviewed and updatedyes All health maintenance tasks and referrals are detailed in QM tab and assessment/plan areayesRashReported bypatient.Reason for visit:acute complaint Location:whole body Quality:macular;red;itch y Severity:moderate Duration:constant Context:no new detergents or skin products; no one else with similar rash Alleviating Factors:nothing gives relief Aggravating Factors:nothing makes it worse Associated Symptoms:no cold symptoms; no nausea; no vomiting; no diarrhea; no urinary symptoms; no chills; no fatigue; no change in weight QUALITY MEASURE QUESTIONNAIRE ?Are you a diabetic patient ?No ?Has the Patient previously received any type of colorectal cancer screener ?No Imported from [facility] on 08/10/2023 Ana Feliz MD [address], [place], [address], [facility] [employer] Physician [facility] 08/10/2023 15:17:19 3 text/html Acute HPIReported bypatient.Reason for visit:acute complaint Location:index finger Quality:Trauma Onset/Timing:abrupt;1 weeks agoFollow upReported bypatient.Reason for visit:recheck of previous visit Severity:mild Current status:variably controlled Current control and compliance:compliant with regimen Ana Feliz MD [address], [place], [address], [facility] [employer] [facility] [place] 08/24/2023 15:40:51 3 text/html RashReported bypatient.Reason for visit:exacerbation of chronic complaint Quality:macular;red;itch y Severity:moderate Duration:constant Context:no new detergents or skin products; no one else with similar rash Alleviating Factors:nothing gives relief Aggravating Factors:nothing makes it worse Associated Symptoms:no cold symptoms; no nausea; no vomiting; no diarrhea; no urinary symptoms; no chills; no fatigue; no change in weight Ana Feliz MD [address], [place], [address], [facility] [employer] [facility] [place] 08/27/2023 15:50:58 3 text/html Follow upReported bypatient.Reason for visit:recheck of previous visit Severity:mild Current status:variably controlled Current control and compliance:compliant with regimenRashReported bypatient.Reason for visit:follow-up of acute complaint Quality:macular;red;itch y Severity:better; resolved Duration:constant Context:no new detergents or skin products; no one else with similar rash Alleviating Factors:nothing gives relief Aggravating Factors:nothing makes it worse Associated Symptoms:no cold symptoms; no nausea; no vomiting; no diarrhea; no urinary symptoms; no chills; no fatigue; no change in weight Tomás Garcia APRN [address], [place], [address], [facility], [facility] 09/03/2023 18:59:52 OBGyn Episode No OBEpisode recorded.
--- OUTSIDE RECORDS SUMMARY | 2024-12-26 18:20 | XMS_ITS | Encounter Summary ---
Author Organization [employer] Address [address] [facility] [address] [place] [address] Care Team Providers Care Import/Export Clerk Name Role Phone Keturah Aguilar Primary Care Provider [phone] Encounter Details Date Type Department Care Team ([facility] st Contact Info) Description 12/23/2024 1:00 PM EST Office Visit [facility] MEDICINE [address] [place] [address] Keturah Aguilar FNP [address] [place] [address] Well adult health check (Primary Dx) Social History Tobacco Use Types Packs/Day Years [...] with others, in a hotel, in a care home, living outside on the street, on a [...] AM EDT documented as of this encounter Last Filed Vital Signs Vital Sign Reading Time Taken Comments Blood Pressure 131/77 12/23/2024 1:09 PM EST Pulse 101 12/23/2024 1:09 PM EST Temperature 36.5 ??C (97.7 ??F) 12/23/2024 1:09 PM ES T Respiratory Rate 16 12/23/2024 1:09 PM EST Oxygen Saturation - - Inhaled Oxygen Concentration - - Weight 79.7 kg (175 lb 12.8 oz) 12/23/2024 1:09 PM EST Height 165.1 cm (5' 5 ) 12/23/2024 1:09 PM EST Body Mass Index 29.25 12/23/2024 1:09 PM EST documented in this encounter Plan of Treatment Upcoming Encounters Date Type Department Care Team (Late st Contact Info) Description 01/26/2025 2:30 PM EST Office Visit [facility] ADULT DENTAL [address] [place] [address] Saurabh Mayers, [place] [address] [place] [address] 02/03/2025 1:30 PM EST Office Visit [facility] MEDICINE [address] [place] [address] Keturah Aguilar, THERAPIST RESPIRATORY [address] [place] [address] Scheduled Orders Name Type Priority Associated Diagnoses Orde r Schedule Hepatitis C Antibody with Reflex to HCV, RNA, Quantitative, Real-Time PCR Lab Routine Well adult health check Expected: 12/23/2024, Expires: 12/23/2025 HIV-1/2 Antigen and Antibodies, Fourth Generation, with Reflexes Lab Routine Well adult health check Expected: 12/23/2024 (Approximate), Expires: 12/23/2025 Chlamydia/N. Gonorrhoeae RNA, TMA, Urogenitial Microbiology Routine Well adult health check Ordered: 12/23/2024 documented as of this encounter Procedures Procedure Name Priority Date/Time Associated Diagnosis Comments CBC WITH AUTO DIFFERENTIAL Routine 12/26/2024 1:40 PM EST Well adult health check BASIC METABOLIC PANEL Routine 12/26/2024 1:40 PM EST Well adult health check documented in this encounter Results * (ABNORMAL) Basic Metabolic Panel (12/26/2024 1:40 PM EST) Sodium 138 135 - 145 mmol/L [facility] Potassium 3.7 3.3 - 5.1 mmol/L [facility] Chloride 108 96 - 108 mmol/L [facility] Carbon Dioxide 24 22 - 29 mmol/L [facility] Anion Gap 10(L) 12 - 20 [facility] Urea Nitrogen (BUN) 17(H) 9 - 16 mg/dL [facility] Creatinine, Serum 0.81 0.5 - 1.4 mg/dL [facility] Estimated Glomerular Filt Rate >60 [facility] Comment:Chronic Kidney Disea se: Estimated GFR < 60 mL/min/1.26n5Vufrkf Kidney Disease: Estimated GFR < 15 mL/min/1.73m2 Glucose 112 60 - 115 mg/dL [facility] Calcium 9.9 8.4 - 10.2 mg/dL [facility] Blood Venous blood specimen / Unknown 12/26/2024 1:40 PM EST 12/26/2024 4:23 PM EST Keturah Aguilar THERAPIST RESPIRATORY LAB BLOOD ORDERABLES Final Res ult [facility] [address] [place], [place] [phone] * CBC auto differential (12/26/2024 1:40 PM EST) White Blood Count 5.5 4.8 - 10.8 X10*3/uL [facility] Red Blood Count 4.30 4.20 - 5.50 X10*6/uL [facility] Hemoglobin 12.0 12.0 - 16.0 g/dl [facility] Hematocrit 38.0 37.0 - 47.0 % [facility] Mean Corpuscular Volume 88.4 80.0 - 98.0 fL [facility] Mean Corpuscular Hemoglobin 27.9 27.0 - 33.0 pg [facility] Mean Corpuscular HGB Conc 31.6 31.0 - 35.0 g/dl [facility] Red Cell Distribution Width 14.6 11.0 - 16.0 % [facility] Platelet Count 279 160 - 400 X10*3/uL [facility] Mean Platelet Volume 10.6 9.4 - 12.3 fL [facility] Neutrophils Percent Auto 56.8 45 - 73 % [facility] Imm Gran Pct Auto 0.2 0.0 - 0.4 % [facility] Lymphocytes Percent Auto 32.7 20 - 40 % [facility] Monocytes Percent Auto 7.8 2 - 11 % [facility] Eosinophils Percent Auto 1.8 0 - 4 % [facility] Basophils Percent Auto 0.7 0 - 2 % [facility] NRBC Pct Auto 0.0 0.0 - 0.2 /100WBC [facility] Neutrophils Absolute Auto 3.1 2.0 - 8.3 x10*3/uL [facility] Imm Gran Abs Auto 0.01 0.00 - 0.03 X10*3/uL [facility] Lymphocytes Absolute Auto 1.8 1.2 - 4.9 X10*3/uL [facility] Monocytes Absolute Auto 0.4 0.1 - 1.2 X10*3/uL [facility] Eosinophils Absolute Auto 0.1 0.0 - 0.4 X10*3/uL [facility] Basophils Absolute Auto 0.0 0.0 - 0.2 X10*3/uL [facility] NRBC Abs Auto 0.000 0.0 - 0.012 X10*3/uL [facility] Blood Venous blood specimen / Unknown 12/26/2024 1:40 PM EST 12/26/2024 4:23 PM EST Keturah ROBINS LAB BLOOD ORDERABLES Final Res ult Performing Organization Address City/State/[facility] Co de Phone Number [facility] [address] [place] [address] [phone] documented in this encounter Visit Diagnoses Diagnosis Well adult health check- Primary Unspecified general medical examination documented in this encounter Additional Health Concerns Assessment Noted Time PHQ-9 Depression Total Score: 6 12/23/19 25 1:32 PM EST documented as of this encounter Care Teams Import/Export Clerk Relationship Specialty Start Date End Date Keturah Aguilar FNP [address] [place] [id number] PCP - General Family Medicine 09/29/24 documented as of this encounter
[2024-12-27 08:24] LABS: HIV AB/AG Nonreactive (Nonreactive); HIV Num 1 0.24 S/CO (0.00-0.99); ~HepC Num1 0.08 S/CO (0.00-0.79); ~Hepatitis C Antibody Nonreactive (Nonreactive)
== END 2024-12-26 13:36 | disposition home or self-care (01) ==
LOC: HO.HHCL 13:35
PROVIDERS: Visit Provider Nurse Practitioner Family
DX: Z00.00 Encounter for general adult medical examination without abnormal findings (principal); Z11.4 Encounter for screening for human immunodeficiency virus [HIV]
CPT/HCPCS: 36415; 80048; 85025; 86803; 87389

== ENCOUNTER 2025-02-06 14:27 | Outpatient (AMB) | payer MEDICAID, SELFPAY ==
--- NOTE | 2025-02-06 15:10 | MHC.OFFVIS ---
Intake Visit Reasons: OV-Discuss R CTR Intake Note: Lesvia is a 59 year old right hand dominant female who presents today to discuss a right carpal tunnel release. Patient reports that she would like to book surgery. Allergies hydrocortisone Allergy (Verified 12/16/24 14:01) Rash HPI HPI OV-Discuss R CTR: Details: Lesvia is a 59 year old right hand dominant female who presents today to discuss a right carpal tunnel release. Patient reports that she would like to book surgery. Patient reports that her symptoms have remained consistent since previous evaluation. No other acute complaints or concerns at this time. 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 Good APB muscle firing and good finger cross. Vascular: Capillary refill brisk. ROM: Patient can make a fist and extend all their digits. There is visible and palpable locking and catching of the right thumb Skin: No lacerations or abrasions noted. General: No ecchymosis. No erythema or evidence of infection. Results Reviewed Results Reviewed: IMPRESSION: 1. This is an abnormal study. 2. There is electrodiagnostic evidence for right mild median neuropathy at the wrist, consistent with carpal tunnel syndrome. 3. There is no electrodiagnostic evidence for ulnar neuropathy, brachial plexopathy, or cervical radiculopathy. Thank you for your kind referral. Ofelia Lopez MD, ISABEL Assessment & Plan Assessment & Plan (1) Trigger thumb, right thumb: Code(s): M65.311 - Trigger thumb, right thumb Category: Medical (2) Right carpal tunnel syndrome: Code(s): G56.01 - Carpal tunnel syndrome, right upper limb Category: Medical Plan 1. Carpal tunnel syndrome, right 2. Right trigger thumb I educated the patient about the condition. I discussed both operative and nonoperative treatment options. The patient would like to proceed with surgery. The risks and benefits of operative treatment were discussed with the patient and the patient wishes to proceed with surgery. These risks include, but are not limited to, risk of damage to blood vessels, nerves, tendons, infection, recurrence, incomplete relief of preoperative symptoms, persistent pain, possible need for further surgery, and the risks associated with regional blocks and/or anesthesia. Plan is to take the patient to the operating room at some point in the next few weeks for the following procedures: 1. Right trigger thumb release under local 2. Right carpal tunnel release under local All of the preoperative paperwork including the consent was discussed today. All of the patient's questions were answered in the clinic today. The patient understands that they will be in contact with our care team coordinator scheduler to discuss scheduling their procedure. Patient denies diabetes, blood thinners, asthma, heart issues, lung issues, kidney issues, or current smoking. Coding Level of Care Code Est Pt Level 4 (73726) Diagnoses Trigger thumb, right thumb M65.311 Right carpal tunnel syndrome G56.01
--- OUTSIDE RECORDS SUMMARY | 2025-02-06 16:30 | XMS_ITS | Encounter Summary ---
Author Organization [employer] Address [address] [facility] 7t [place] [address] Care Team Providers Care Lubricating Machine Tender Name Role Phone Keturah Aguilar DATA ENTRY ANALYST Primary Care Provider [phone] Encounter Details Date Type Department Care Team (Latest Contact Info) Description 02/03/2025 Travel Social History Tobacco Use Types Packs/Day Years [...] AM EDT documented as of this encounter Plan of Treatment Upcoming Encounters Date Type Department Care Team (Late st Contact Info) Description 02/15/2025 9:00 AM EDT Procedure Visit [facility] MEDICINE [address] [place] [address] Keturah Aguilar FNP [address] [place] [address] 05/25/2025 2:30 PM EDT Office Visit [facility] OPTOMETRY [address] [place] [address] Brenton, Stephanie, OD [address] [place] [address] documented as of this encounter Visit Diagnoses Not on filedocumented in this encounter Additional Health Concerns Assessment Noted Time PHQ-9 Depression Total Score: 6 12/23/19 25 1:32 PM EST documented as of this encounter Care Teams Lubricating Machine Tender Relationship Specialty Start Date End Date Keturah Aguilar FNP [address] [place] [address] PCP - General Family Medicine 09/29/24 documented as of this encounter
--- OUTSIDE RECORDS SUMMARY | 2025-02-06 16:30 | XMS_ITS | Patient Health Record ---
Author Organization Rafal Bal MD PA Address [address] [facility] [address] [place] [address] Support Name Relationship Address Phone VIRI, Lesvia Guarantor Unknown [phone] Allergies Allergen (clinical drug ingredient) Drug/Non Drug [...] Notes Problem Migraine variant with headache (disorder) (339641734) Migraine headache (G43.901) Active confirmed Problem [id number] BMI 30.0-30.9,adult (Z68.30) Active confirmed Problem 5221700 Migraine with aura and without status migrainosus, not intractable (G43.109) Active confirmed Problem [id number] Abnormal mammogram of both breasts (R92.8) Active [...] Coverage End Date Blue Cross and Blue [facility] [address] [place] [address] [id number] Lesvia MEREDITH Self - patient is the insured Medical (General) History Medical History History ICD Code Migraine headache G43.901 Hospitalization History Reason Date(Month/Year) Tip--cellulitis caused by bug bite 12/18
--- OUTSIDE RECORDS SUMMARY | 2025-02-06 16:30 | XMS_ITS | Clinical Summary ---
Author Organization [employer] Address [address] [facility] 7t [place] [address] Care Team Providers Care Card Doffer Name Role Phone Keturah Aguilar HUMAN RESOURCES COORDINATOR Primary Care Provider [phone] Allergies No known active allergies Medications * This document contains information received from the source organization and may not represent a complete record from that organization. loratadine (Claritin) 10 MG tablet TOME GEOR[place]NA TABLETA POR V A ORAL TODOS LOS D (INSURANCE) 3 Active famotidine (Pepcid) 40 MG tablet TOME [place]NA TABLETA TODOS LOS D 3 Active EPINEPHrine (Epipen) 0.3 MG/0.3ML injection syringe Inject 0.3 mL (0.3 mg) as directed 1 (one) time if needed for anaphylaxis for up to 2 doses. Inject into upper leg. Call 911 after use. 1 each 1 4 Active Diclofenac Sodium 1 % gelIndications: Thumb pain, right Apply topically to affected areas twice daily 150 g 1 4 Active Xolair 300 MG/2ML solution prefilled syringe Inject 300 mg as directed every 28 (twenty-eight) days. 5 Active amitriptyline (Elavil) 10 MG tablet Take 1 tablet (10 mg) by mouth at bedtime. 30 tablet 1 5 04/04/20 25 Active naproxen (Naprosyn) 500 MG tablet Take 1 tab bid for headache prn 60 tablet 5 Active Active Problems Problem Noted Date Diagnosed Date Exercise counseling 12/31/2024 Dietary counseling 12/31/2024 Well adult health check 12/31/2024 Carpal tunnel syndrome of right wrist 12/31/2024 Adjustment disorder with depressed mood 12/23/19 Assessment & Plan (12/26/2024 10:59 AM EST): During IBH Consult Lsevia presenting with depressed mood, Tearful, crying spells [...] for her- walking at the mall, attending yazdanism- she will continue using strategies before seeking out for MH services. clinician engaged patient with active/reflective listening. Reviewed and assessed for risk, current stressors and protective factors using open-ended questions. Explored strategies to utilize in daily routine to decrease her sxs. Pt declined OP referral at this time. Not interested in starting medication. clinician will provide additional support during next medical appointment. Provided [facility] numbers. Sinusitis 09/20/2024 Assessment & Plan (09/20/2024 [...] organization. Date Type Department Care Team Description 02/03/2025 1:30 PM EST Office Visit [address] [address] Keturah Aguilar FNP 02/03/2025 Travel 01/26/2025 Telephone [facility] MED & PEDS [address] [place] [address] Keturah Aguilar FNP chartprep 12/23/2024 1:00 PM EST Office Visit [address] [address] Keturah Aguilar FNP Well adult health check (Primary Dx); Dietary counseling; Exercise counseling; Adjustment disorder with depressed mood; Intractable migraine without status migrainosus, unspecified migraine type; Carpal tunnel syndrome of right wrist 12/14/2024 Patient Outreach [address] [address] Keturah Aguilar FNP Care Coordination (CH[facility] outreach for SDOH PT-1 and food needs-referral completed /) 12/14/2024 Patient Outreach [address] [address] Keturah Aguilar FNP Pre-visit Planning (SDOH screening positive and Tobacco screening negative) 12/13/[address] [address] Clair Colon [place] Chart Prep 11/18/2024 Telephone [facility] WALK[facility]IN CENTER [address] [place] [address] [phone] Rebeca Nur RN Results 11/16/2024 Orders Only [facility] [address] [place] [phone] Wilma Dawson FNP Right carpal tunnel syndrome (Primary Dx) from Last 3 Months Immunizations Name Administration [...] Sign Reading Time Taken Comments Blood Pressure 135/77 02/03/2025 1:36 PM EST Pulse 71 02/03/2025 1:36 PM EST Temperature 36.6 ??C (97.8 ??F) 02/03/2025 1:36 PM ES T Respiratory Rate 20 02/03/2025 1:36 PM EST Oxygen Saturation 98% 02/03/2025 1:36 PM EST Inhaled Oxygen Concentration - - Weight 78 kg (172 lb) 02/03/2025 1:36 PM EST Height 165.1 cm (5' 5 ) 02/03/2025 1:36 PM EST Body Mass Index 28.62 02/03/2025 1:36 PM EST Plan of Treatment Upcoming Encounters Date Type Department Care Team (Late st Contact Info) Description 02/15/2025 9:00 AM EDT Procedure Visit [facility] MEDICINE [address] [place] [address] Keturah Aguilar FNP [address] [place] [address] 05/25/2025 2:30 PM EDT Office Visit [facility] OPTOMETRY [address] [place] [address] Stephanie Farris, OD [address] [place] [address] Health Maintenance Due Date Last Done Comments CT Colonography 1966 Colonoscopy 1966 Colorectal Cancer Screening 1966 Dental Prophylaxis 1966 Dental X-Ray: Bitewings 1966 FIT DNA/Cologuard 1966 FIT 1966 FOBT 1966 Sigmoidoscopy 1966 Pap Smear 1987 Dental X-Ray: Full Mouth 04/04/2012 04/03/2009 Dental Oral Exam 08/26/2013 02/22/2013 Pneumococcal Vaccine: 50+ Years (1 of 1 - PCV) 2016 Zoster Vaccines (1 of 2) 2016 Cervical Cancer Screening 08/12/2021 HPV/Cotest 08/12/2021 08/12/2016 DTaP/Tdap/Td Vaccines (2 - Td or Tdap) 04/06/2022 04/06/2012, 07/19/2004 COVID-19 Vaccine ( - season) 2024 10/27/2022, 10/31/2021, 04/19/2021, Additional history exists Influenza Vaccine (#1) 2024 , 10/19/2017, 11/27/2016, Additional history exists SDOH Screening 12/14/2025 12/14/2024 Alcohol/Substance Use Screening 12/23/2025 12/23/2024 Depression Screening 12/23/2025 12/23/2024, 12/23/19 25 Tobacco Screening 02/03/2026 02/03/2025 Mammogram 03/25/2026 03/25/2024, 07/0 04/2023, 06/04/2023, Additional history exists RSV Patients and Patients Aged 60 years or older (1 - 1-dose 75+ series) 2041 IPV Vaccines Completed 11/03/1983, 01/01, 12/11/1980 Hepatitis A Vaccines Aged Out 09/05/2014, 02/28/20 14 No longer eligible based on patient's age to complete this topic Hepatitis B Vaccines Completed 12/11/2014, 05/25/2014, 02/27/2014 HIV Screening Completed 12/26/2024 Hepatitis C Screening Completed 12/26/2024 HIB Vaccines Aged Out No longer eligi [...] 1:40 PM EST Well adult health check HIV 1/2 ANTIGEN/ANTIBODY, FOURTH GENERATION W/RFL Routine 12/26/2024 1:40 PM EST Well adult health check HEPATITIS C AB W/REFL TO HCV RNA, QN, PCR Routine 12/26/2024 1:40 PM EST Well adult health check BI MAMMOGRAM SCREENING TOMOSYNTHESIS BILATERAL Routine 03/25/2024 3:41 PM EDT ZZZ HISTORICAL HPV MRNA E6/E7 Routine 08/12/2016 9:55 AM EDT PERIODIC ORAL EVALUATION - ESTABLISHED PATIENT Routine 02/22/2013 12:00 AM EDT PANORAMIC RADIOGRAPHIC IMAGE Routine 04/03/2009 12:00 AM EDT from Last 3 Months or Most Recently Relevant to Health Maintenance Results * CBC auto differential (12/26/2024 1:40 PM EST) White Blood Count 5.5 4.8 - 10.8 X10*3/uL [facility] Red Blood Count 4.30 4.20 - 5.50 X10*6/uL [facility] Hemoglobin 12.0 12.0 - 16.0 g/dl [facility] Hematocrit 38.0 37.0 - 47.0 % [facility] Mean Corpuscular Volume 88.4 80.0 - 98.0 fL [facility] Mean Corpuscular Hemoglobin 27.9 27.0 - 33.0 pg [facility] Mean Corpuscular HGB Conc 31.6 31.0 - 35.0 g/dl [facility] Red Cell Distribution Width 14.6 11.0 - 16.0 % [facility] Platelet Count 279 160 - 400 X10*3/uL [facility] Mean Platelet Volume 10.6 9.4 - 12.3 fL [facility] Neutrophils Percent Auto 56.8 45 - 73 % [facility] Imm Gran Pct Auto 0.2 0.0 - 0.4 % [facility] Lymphocytes Percent Auto 32.7 20 - 40 % [facility] Monocytes Percent Auto 7.8 2 - 11 % [facility] Eosinophils Percent Auto 1.8 0 - 4 % [facility] Basophils Percent Auto 0.7 0 - 2 % [facility] NRBC Pct Auto 0.0 0.0 - 0.2 /100WBC [facility] Neutrophils Absolute Auto 3.1 2.0 - 8.3 x10*3/uL [facility] Imm Gran Abs Auto 0.01 0.00 - 0.03 X10*3/uL [facility] Lymphocytes Absolute Auto 1.8 1.2 - 4.9 X10*3/uL [facility] Monocytes Absolute Auto 0.4 0.1 - 1.2 X10*3/uL [facility] Eosinophils Absolute Auto 0.1 0.0 - 0.4 X10*3/uL [facility] Basophils Absolute Auto 0.0 0.0 - 0.2 X10*3/uL [facility] NRBC Abs Auto 0.000 0.0 - 0.012 X10*3/uL [facility] Blood Venous blood specimen / Unknown 12/26/2024 1:40 PM EST 12/26/2024 4:23 PM EST us Keturah Aguilar [facility] LAB BLOOD ORDERABLES Final Res ult Performing Organization Address [facility] Co de Phone Number [facility] [address] [place] [address] [phone] * Hepatitis C Antibody with Reflex to HCV, RNA, Quantitative, Real-Time PCR (12/26/2024 1:40 PM EST) Hepatitis C Antibody Nonreactive Nonreactive [facility] Comment:Antibodies to HCV no t detected; does not exclude early acuteHCV infection. Blood Venous blood specimen / Unknown 12/26/2024 1:40 PM EST 12/26/2024 4:23 PM EST [facility] LAB BLOOD ORDERABLES Final Res ult Performing Organization Address [facility] Co de Phone Number [facility] [address] [place] [address] [phone] * HIV-1/2 Antigen and Antibodies, Fourth Generation, with Reflexes (12/26/2024 1:40 PM EST) HIV AB/AG Nonreactive Nonreactive [facility] Comment:HIV-1 p24 Ag and/or HIV-1/HIV-2 Ab not detected.A test result that is nonreactive does not exclude thepossibility of exposure to or infection with HIV-1 and/orHIV-2. Nonreactive results in this assay for individualswith prior exposure to HIV-1 and/or HIV-2 may be due toantigen and antibody levels that are below the limit ofdetection of this assay.The [employer] HIV Ag/Ab Combo assay result andsupplemental assay results should be interpreted inconjunction with the patient's clinical presentation,history and other laboratory results. If the results areinconsistent with clinical evidence, additional testing issuggested to confirm the result. Blood Venous blood specimen / Unknown 12/26/2024 1:40 PM EST 12/26/2024 4:23 PM EST [facility] LAB BLOOD ORDERABLES Final Res ult Performing Organization Address [facility] de Phone Number [facility] [address] [place], [place] [phone] * (ABNORMAL) Basic Metabolic Panel (12/26/2024 1:40 PM EST) Sodium 138 135 - 145 mmol/L [facility] Potassium 3.7 3.3 - 5.1 mmol/L [facility] Chloride 108 96 - 108 mmol/L [facility] Carbon Dioxide 24 22 - 29 mmol/L [facility] Anion Gap 10(L) 12 - 20 [facility] Urea Nitrogen (BUN) 17(H) 9 - 16 mg/dL [facility] Creatinine, Serum 0.81 0.5 - 1.4 mg/dL [facility] Estimated Glomerular Filt Rate >60 [facility] Comment:Chronic Kidney Disea se: Estimated GFR < 60 mL/min/1.23b9Jwlowp Kidney Disease: Estimated GFR < 15 mL/min/1.73m2 Glucose 112 60 - 115 mg/dL [facility] Calcium 9.9 8.4 - 10.2 mg/dL [facility] Blood Venous blood specimen / Unknown 12/26/2024 1:40 PM EST 12/26/2024 4:23 PM EST Keturah Aguilar [facility] LAB BLOOD ORDERABLES Final Res ult Performing Organization Address [facility] de Phone Number [facility] [address] [place] [address] [phone] * BI Mammogram Screening Tomosynthesis Bilateral (03/25/2024 3:41 PM EDT) Anatomical Region Laterality Modality Breast Bilateral Mammography 03/25/2024 3:41 PM EDT Narrative 04/24/2024 5:57 AM EDT ? [facility] ? [address] ?[place] [address] ? Mammography Report ? Signed ? Patient: Josh Altreche,Lesvia ?MR#: ?? [id number] ? : 1965 ?Acct:[id number] ? Age/Sex: 58 / F ?ADM Date: 03/25/24 ? Loc: HO.MAMMO ? Attending Dr: Maris Diaz SCALE MANAGER ? Ordering Physician: Maris Diaz SCALE MANAGER ?Results: 1Negativ ?? e ? Date of Service: 03/25/24 ?Follow Up: 1 Year From Orig ?? inal Mammogram ? Procedure(s): MM tomosynthesis screening BI ?? Accession Number(s): [id number] ? cc: Maris Diaz SCALE MANAGER ? EXAMINATION: ?? MM SCREENING DIGITAL BREAST [...] 0553 ? DD/ 1541 ? TD/TT: ? Broadcast News Producer: ? Procedure Note Cesaraishwaryaivethdori, Image - 04/24/2024 Oct[facility] [address] [place] [address] Mammography Report Signed Patient: Lesvia XieMR#: [id number] : 1965Acct:[id number] Age/Sex: 58 / FADM Date: 03/25/24 Loc: HO.MAMMO Attending Dr: Maris Diaz SCALE MANAGER Ordering Physician: Maris Diaz NPResults: 1Negativ e Date of Service: 03/25/24Follow Up: 1 Year From Orig inal Mammogram Procedure(s): MM tomosynthesis screening BI Accession Number(s): [id number] cc: Maris Diaz NP EXAMINATION: MM SCREENING [...] in OV> 04/24/24 0553 DD/ 1541 TD/TT: Broadcast News Producer: Maris Diaz HUMAN RESOURCES COORDINATOR IMG BI PROCEDURES Final Result * HPV mRNA E6/E7 (08/12/2016 9:55 AM EDT) HPV mRNA E6/E7 Not Detected NOT DETECTED [facility] Comment: This assay detects E6/E7 viral messenger RNA (mRNA) from 14 high-risk HPV types (16,18,31,33,35,39,45,51, 52,56,58,59,66,68). This test was performed using the APTIMA(R) TMA HPV Assay ([employer] For additional information, please refer to http://education.CloudSafe/faq/JAJ936f2 Test Performed by [facility] [place], [facility], [address] [place] [id number] Greg Kay M.D., Ph.D., Director of Laboratories , [facility] [id number] Please note: ??Effective 08/11/2016, HPV testing will be performed using [employer]'s APTIMA test which targets mRNA. Detecting mRNA instead of DNA, as in older methods, offers significant improvements in specificity. 08/12/2016 9:55 AM EDT Natasha Alberts NP HISTORICAL/NON ORDERABLE LABS Fi nal Result [facility] [address] from Last 3 Months or Most Recently Relevant to Health Maintenance Insurance [facility] C3 HSN FULL DENTAL-[facility] MEDICAID STAND ADULT Care Teams Card Doffer Relationship Specialty Start Date End Date Keturah Aguilar FNP [address] [place] [address] PCP - General Family Medicine 09/29/24
--- OUTSIDE RECORDS SUMMARY | 2025-02-06 16:30 | XMS_ITS | Encounter Summary ---
Author Organization [employer] Address [address] [facility] [address] [place] [address] Care Team Providers Care Sheet Metal Assembler And Riveter Name Role Phone Keturah Aguilar Primary Care Provider [phone] Encounter Details Date Type Department Care Team (Late st Contact Info) Description 02/03/2025 1:30 PM EST Office Visit [facility] MEDICINE [address] [place] [address] Keturah Aguilar FNP [address] [place] [address] Social History Tobacco Use Types Packs/Day Years [...] with others, in a hotel, in a senior care, living outside on the street, on a [...] Mass Index 28.62 02/03/2025 1:36 PM EST documented in this encounter Plan of Treatment Upcoming Encounters Date Type Department Care Team (Late st Contact Info) Description 02/15/2025 9:00 AM EDT Procedure Visit [facility] MEDICINE [address] [place], [place] [phone] Keturah Aguilar FNP [address] [place] [address] 05/25/2025 2:30 PM EDT Office Visit [facility] OPTOMETRY [address] [place], [place] [phone] Brenton, Stephanie, OD [address] [place], [place] [phone] documented as of this encounter Visit Diagnoses Not on filedocumented in this encounter Additional Health Concerns Assessment Noted Time PHQ-9 Depression Total Score: 6 12/23/19 25 1:32 PM EST documented as of this encounter Care Teams Sheet Metal Assembler And Riveter Relationship Specialty Start Date End Date Keturah Aguilar FNP [address] [place], [place] [phone] PCP - General Family Medicine 09/29/24 documented as of this encounter
--- OUTSIDE RECORDS SUMMARY | 2025-02-06 16:30 | XMS_ITS | Patient Health Record ---
Author Organization [facility] Billing Info Address [address] [place], [place] [id number] Care Team Providers Care Outreach Worker Name Role Phone NILESH YBARRA [phone] Allergies Allergen (clinical drug ingredient) Drug/Non Drug Allergy documented on EMR Reaction Allergy Type Onset Date Status Hydrocodone Bitartrate Unknown Drug Allergy Active Reason For Referral No Information Social History Tobacco Status: Question Answer Notes Patient is a non tobacco user Plan Of Treatment No Information Medical (General) History Medical History History ICD Code Arthritis Surgical History Surgery Date(Month/Year) Hernia repair 1973 Sepsis / Abscess right leg 2019
--- OUTSIDE RECORDS SUMMARY | 2025-02-06 16:31 | XMS_ITS | Encounter Summary ---
Author Organization [employer] Address [address] [facility] [address] [place] [address] Care Team Providers Care Salesperson Books Name Role Phone Keturah Aguilar Primary Care Provider [phone] Reason for Visit * Reason Onset Date Comments chartprep 01/26/2025 Encounter Details Date Type Department Care Team ([facility] st Contact Info) Description 01/26/2025 Telephone [facility] [address] [place] [address] Keturah Aguilar, SHIMON [address] [place] [address] chartprep Social History Tobacco Use Types Packs/Day Years [...] with others, in a hotel, in a longterm, living outside on the street, on a [...] encounter Miscellaneous Notes * Telephone Encounter - Phoebe Sanders MA - 01/26/2025 12:15 PM EST Chart Prep Labs: not done Images: not done Vaccines due: yes Covid, tdap, pcv20, flu, and zoster. Referrals: pending appt Screenings: colonoscopy , mammogram , pap smear Overdue care gaps: none documented in this encounter Plan of Treatment Upcoming Encounters Date Type Department Care Team (Late st Contact Info) Description 02/15/2025 9:00 AM EDT Procedure Visit [facility] [address] [place] [address] Keturah Aguilar FNP [address] [place] [address] 05/25/2025 2:30 PM EDT Office Visit [facility] [address] [place] [address] Stephanie Farris OD [address] [place] [address] documented as of this encounter Visit Diagnoses Not on filedocumented in this encounter Additional Health Concerns Assessment Noted Time PHQ-9 Depression Total Score: 6 12/23/19 25 1:32 PM EST documented as of this encounter Care Teams Salesperson Books Relationship Specialty Start Date End Date Keturah Aguilar FNP [address] [place] [address] PCP - General Family Medicine 09/29/24 documented as of this encounter
--- OUTSIDE RECORDS SUMMARY | 2025-02-06 16:31 | XMS_ITS | Data Portability ---
Author Organization [place] - [facility] [employer], [facility], [facility] Address [address] [place] [phone] Assessment No assessment recorded. Plan of Treatment Reminders Order Date Submit Date Provider Last Modified By Organization Details Last Modified Time Details Appointments None recorded. Lab erythrocyte sedimentati on rate by westergren method 2022 023 [facility], [address], [place], [address], 3 19:22:29 C-reactive protein, quantitativ e, serum or plasma 2022 023 [facility], [address], [place], [address], 3 19:22:28 Referral None recorded. Procedures None recorded. Surgeries None recorded. Imaging XR, finger(s) 2022 023 [email or web address] [facility], [facility], All Locations, [place], [address], 4 12:03:53 MRI, brain, w/o contrast - MRI brain WO; headaches 2022 023 [facility], [facility], All Locations, [place], [address], 3 12:09:26 Medication Orders ketoconazol e 2 % topical cream 2022 023 [email or web address] [facility] #04597, [address], [place], [place], [id number], 3 18:55:36 cetirizine 10 mg tablet 2022 023 [facility] #80013, [address], [place], [place], [id number], 3 14:31:54 montelukast 10 mg tablet 2022 023 [facility] #75059, [address], [place], [place], [id number], 3 14:31:51 terbinafine HCl 250 mg tablet 2022 023 [facility] #52761, [address] [place], [place], [id number], 3 15:47:43 ketoconazol e 2 % topical cream 2022 023 [facility] #04419, [address], [place], [id number], 3 15:47:44 prednisone 10 mg tablet 2022 023 [facility] #58309, [address] [place], [place], [id number], 3 15:12:49 nortriptyli ne 25 mg capsule 2022 023 [facility] #39662, [address], [place], [place], [id number], 3 09:22:27 rizatriptan 10 mg tablet 2022 023 [facility] #81565, [address], [id number], 09:22:27 Patient TargetsNo targets recorded. Patient Instructions Encounter Date Encounter Id Patient Instructions Last Modified By Organization Details Last Modified Time 03/09/2023 [id number] This note was completed using [employer] speech recognition software. Grammatical errors, random word [...] care. [email or web address] Not available 03/09/2023 09:02:24 08/10/2023 [id number] mamograf? ? ?a: sobre esta prueba - [...] answered. [email or web address] Not available 08/10/2023 15:07:34 08/27/2023 [id number] call me if not better in few days. Risk, benefits and side effect of medication DW pt, all questions answered. [email or web address] Not available 08/27/2023 15:46:36 09/03/2023 [id number] urticaria: instrucciones de cuidado - [hives: care instructions] [email or web address] Not available 09/03/2023 14:31:28 Reason for Referral [...] procc ess is occur ing. Not Available [facility] [address], [place], [address], 03/10/2023 19:22:27 03/10/20 23 03/10/2023 SED RATE, WESTE RGREN sed rate, westergren_V 16 mm/HR 0-30 Not Available [facility] [address], [place], [address], 03/10/2023 19:22:28 03/10/20 23 03/10/2023 VENIP UNCTU RE results Compl ete Not Available [facility] [address], [place], [address], 03/10/2023 14:23:22 03/17/20 23 03/17/2023 MRI, brain [...] By: Vini Preciado James Sign Date: [id number] [facility] All Locations, [place], [address], 10/21/2024 19:44:12 05/07/2005/07/2023 US, pelvi s, trans [...] de leon D.O., Paul Sign Date: [id number] [facility] All Locations, [place], [address], 10/21/2024 19:42:18 06/04/20 23 05/22/2023 MAMMO , [...] ed of these findin gs as per [place] law. BI-RAD S catego ry: 2: Benign findin gs RECOMM ENDATI ONS: Annual screen ing mammog belgica. Notes: -The patien t's wales fibrog landul ar tissue can obscur e [...] Navjot Mendoza Michae l Sign Date: [id number] [facility] All Locations, [place], [address], 10/21/2024 19:46:20 Result Notes None recorded. Problems Name Problem SNOMED Code Status Onset Date Resolution Date Notes Provider Name and Address Organization Details Recorded Time Onychomycosis 339519940 Active 2021 Ana Feliz MD [address], [place], [address], [facility], [employer] 14:33:06 Menopausal symptom 19578438 Active 2021 Ana Feliz MD [address], [place], [address], [facility], [facility] 14:33:43 Migraine 39888311 Active 2021 Ana Feliz MD [address], [place], [address], [facility], [employer] 14:33:46 Hyperlipidemia 32265805 Active 2021 Ana Feliz MD [address], [place], [address], [facility], [employer] 15:04:42 Problem Notes None recorded. Procedures Surgical History Date Name Laterality Status Provider Name and Address Organization Details Recorded Time 3 Date of Last Mammogram completed Prema Bineftaly [facility], [facility] 08/10/2023 14:19:53 3 Mammogram Screening completed Prema Bineftaly [facility], [facility] 08/10/2023 14:19:46 3 Breast/Pelvic/P ap - Medicare G0101/Q0091 completed JOY HILARIO APRN [address], [place], [address], [facility], [facility] 01/29/2023 10:19:30 2 Walk-In Basic Visit completed Chato Arreguin MD [address], [place], [address], [facility], [facility] 07/23/2022 17:44:48 0 [facility], [facility] 03/05/2022 14:15:47 8 Colonoscopy completed Ana Feliz MD [address], [place], [address], [facility] - [facility], [facility] 01/15/2023 12:54:13 3 [facility]air [facility], [facility] 03/05/2022 14:17:00 Imaging Results Imaging Date Name Status LastModified by Organization Details LastModified Time 03/17/2023 MRI, brain, w/o contrast completed [facility]_[id number] [facility] Imaging [facility] Imaging All Locations, [place], [address], 10/21/2024 19:44:12 05/07/2023 US, pelvis, transabdominal + transvaginal completed [facility]_[id number] [facility] All Locations, [place], [address], 10/21/2024 19:42:18 05/22/2023 MAMMO, screening, tomosynthesis, bilateral completed [facility]_[id number] [facility] All Locations, [place], [address], 10/21/2024 19:46:20 Procedure Notes None recorded. Medical Equipment None Reported. Allergies No known drug allergies Medications Name Sig Start Date Stop Date Status Note LastModified by Organization Details LastModified Time prednisone 10 mg tablet 40mg po qd x 3 [id number] po qd x 3 [id number] po qd x 3 [id number] po qd x 3 day 08/24 completed [...] Not Available Vitals Date Recorded Body height Respiratory rate Body mass index (BMI) Body weight Body temperature Heart rate Oxygen saturation Oxygen saturation in Arterial blood by Pulse oximetry Systolic blood pressure Diastolic blood pressure Provider Name and Address Organization Details Last Updated DateTime 3 165.1 cm 19 /min 29.6 kg/m2 89121.4 4 g 98 [degF] 88 /min 98 % 98 % 112 mm[Hg] 78 mm[Hg] Vince Knight [facility], [facility] 3 08:45:36 Date Recorded Body height Pain severity - 0-10 verbal numeric rating [Score] - Reported Body mass index (BMI) Body weight Heart rate Respiratory rate Oxygen saturation Oxygen saturation in Arterial blood by Pulse oximetry Systolic blood pressure Diastolic blood pressure Provider Name and Address Organization Details Last Updated DateTime 3 165.1 cm 0 29.8 kg/m2 33020.0 3 g 81 /min 18 /min 99 % 99 % 128 mm[Hg] 72 mm[Hg] Prema Cotto [facility], [facility] 3 14:24:06 Date Recorded Body height Pain severity - 0-10 verbal numeric rating [Score] - Reported Body mass index (BMI) Body weight Heart rate Respiratory rate Oxygen saturation Oxygen saturation in Arterial blood by Pulse oximetry Systolic blood pressure Diastolic blood pressure Provider Name and Address Organization Details Last Updated DateTime 3 165.1 cm 0 29.6 kg/m2 49235.4 4 g 85 /min 18 /min 98 % 98 % 120 mm[Hg] 72 mm[Hg] Prema Cotto [facility], [facility] 3 15:15:52 Date Recorded Body height Pain severity - 0-10 verbal numeric rating [Score] - Reported Body mass index (BMI) Body weight Heart rate Respiratory rate Oxygen saturation Oxygen saturation in Arterial blood by Pulse oximetry Systolic blood pressure Diastolic blood pressure Provider Name and Address Organization Details Last Updated DateTime 3 165.1 cm 0 29.6 kg/m2 08336.4 4 g 83 /min 18 /min 98 % 98 % 128 mm[Hg] 62 mm[Hg] Prema Cotto [facility], [facility] 3 15:31:05 Date Recorded Body height Body mass index (BMI) Body weight Heart rate Respiratory rate Oxygen saturation Oxygen saturation in Arterial blood by Pulse oximetry Systolic blood pressure Diastolic blood pressure Provider Name and Address Organization Details Last Updated DateTime 3 165.1 cm 29.3 kg/m2 39072.2 6 g 76 /min 18 /min 98 % 98 % 120 mm[Hg] 70 mm[Hg] Fausto Nguyen [facility], [facility] 3 14:12:54 Social History Question Answer Notes LastModified by Organizat ion Details LastModified Time Tobacco Smoking Status Never Smoker Serene Mondragon danielle [facility], [facility] 03/05/2022 14:14:10 Do You Have An Advance [...] Do You Have A Medical Power Of Retail Event And Sales Assistant? No Information not available 01/29/2023 What Was [...] quadrivalent, PF 08/07/2022 completed Ana Feliz MD [address] [facility] [address], [place], [address], [facility], [facility] 08/07/2022 15:47:40 COVID-19, mRNA, LNP-S, PF, 100 mcg/0.5mL dose or 50 mcg/0.25mL dose 03/29/2021 completed Not Available [facility] 3 11:35:12 COVID-19, mRNA, LNP-S, PF, 100 mcg/0.5mL dose or 50 mcg/0.25mL dose 04/19/2021 completed Not Available [facility] 3 11:35:12 COVID-19, mRNA, LNP-S, PF, 100 mcg/0.5mL dose or 50 mcg/0.25mL dose 10/31/2021 completed Not Available [facility] 3 11:35:12 COVID-19, mRNA, LNP-S, PF, 30 mcg/0.3 mL dose 03/29/2021 completed Svitlana Lopez [facility] 07/23/2022 16:58:25 COVID-19, mRNA, LNP-S, PF, 30 mcg/0.3 mL dose 10/31/2021 completed Svitlana Lopez null, [facility] 07/23/2022 16:58:25 COVID-19, mRNA, LNP-S, PF, 30 mcg/0.3 mL dose 04/19/2021 [facility] 16:58:25 COVID-19, mRNA, LNP-S, bivalent, PF, 30 mcg/0.3 mL dose 10/27/2022 completed Fausto Nguyen [facility], [facility] 11/19/2022 08:49:25 Past Encounters Encounter ID Performer Location Encounter Start Date Encounter Closed Date Diagnosis/Indication Diagnosis SNOMED-CT Code Diagnosis ICD10 Code Diagnosis Note [id number] [facility] Feliz [facility] [address] [address] [place] [address] 03/05/2022 13:51:57 03/05/2022 14:36:25 Migraine 62725974 G43.909 Does OK with PRN Advail Migrainere educated on dxeducated on Onychomycosis 419148811 B35.1 Left big toeEducate d on diagnosis as well as potential complicati ons/conseq uences if untreatedT reatment options discussed as well.Topic al treatment as below recommende d and patient agree Menopausal symptom 09739 002 N95.1 Educated on diff diagnosis as well as potential treatment. monitor recommende d and patient agree Anti-nucle ar factor detected 596948212 R76.8 positive on 2020had Skin changes at that timeshe was refer to Rheumatolo gist by Dr Bal but did not go.she decline to go to any specialist at this time [id number] Chato Arreguin MD [facility] [address] [facility] [place] [address] 07/23/2022 16:27:14 07/23/2022 17:53:34 Headache 77151264 R51.9 [id number] Ana Feliz MD [facility] [address] [facility],[address] [address] 08/07/2022 14:30:49 08/07/2022 15:14:54 Hyperlipidemia 39866596 E78.2 New DxEducated on diagnosis as well as potential complicati ons/conseq uences if untreatedT reatment options discussed as well.Treat ment Atorvastat in 10mg po qd recommende d and patient agree Calcificat ion of basal ganglia 1869378161 5292298 G23.8 new finding on CTEducated on diff diagnosis as well as potential consequenc esNeuro consult recommende d and patient agree Migraine 97805902 G43.90 9 worsenchro nicher otc meds are not working any morerefer to neurologis tstart PRN sumatripta n PRN and schedule topamax as below for better control Influenza vaccine needed 9429228896 106 Z23 [id number] Tomás Garcia APRN [facility] [address] [place] [address] 10/07/2022 15:16:14 10/07/2022 16:36:22 Migraine 27940800 G43.909 Unchangedc hronicher otc meds are not workingshe is not using topamax as indicatedw as refere to neurologis t but nor seen yetContinu es PRN sumatripta n and take topamax as indicated Hyperlipidemia 30233963 E78.2 LDL 136Betteri ncrease Atorvastat in to 20 mg po qd recommende d for better control and patient agreefi labs [id number] Ana Feliz MD [facility] [address] [place] [address] 11/19/2022 08:41:19 11/19/2022 11:26:30 Migraine 35511785 G43.909 Worsenchro nicher otc meds are not workingshe is not using topamax as indicated due to side effects on her Abdomen.heri capps refere to neurologis t but nor seen yetDoes not feel well with Sumatripta nhold PRN sumatripta nadd trial of Ubrelvy DW her and recommende d [id number] Ana Feliz MD [facility] [address] [place] [address] 01/15/2023 12:08:37 01/15/2023 13:00:43 Migraine 06487408 G43.909 not betterchro nicher otc meds are not workingshe is not using topamax as indicated due to side effects on her Abdomen.heri capps refere to neurologis t but nor seen yetDoes not feel well with Sumatripta nUbrelvy did not workawait Neurologis t consult Screening mammography 24 787287 Z12.31 [id number] JOY HILARIO APRN [facility] [address] [place] [address] 01/29/2023 08:49:59 01/29/2023 10:34:15 Screening mammography 47514711 Z12.31 Pain in pelvis 70654826 R10.2 acuteunkno wn etiologyha ppens during sexI will obtain US pelvicmana gement based on the findings Screening for malignant neoplasm of cervix 795020551 Z12.4 Dyspareunia 94367017 N94 .10 as above Depression screening 171 958566 Z13.31 A Depression screening assessment was conducted during this encounter and all actions of this assessment and time elements up to 15 minutes were met [id number] VINCE RICHARDS DO [facility] [address] [facility] [address] [facility] [address] [place] [address] 03/09/2023 08:33:06 03/09/2023 09:44:50 Chronic migraine without aura 4238136101 08317 G43.709 Patient complains of increased headache pain [...] some people. Calcificat ion of basal ganglia 9153577608 6491532 G23.[address] brain from 07/24/2022 which [...] in 6 months or sooner if needed. [id number] Ana Feliz MD [facility] [address] [place] [address] 08/10/2023 14:06:05 08/10/2023 15:20:18 Adult health examination 258546487 Z00.01 Preventive visit done today. Anticipato ry guidance given as noted below.decl ined EKG Increased body mass index 23392242 Z68.29 elevated BMI. Discussed diet and better therapeuti c lifestyle changes. Diet education 86079884 Z71.3 as above Screening for malignant neoplasm of colon 150479392 Z12.11 UP TO DATE Screening mammography 24 441283 Z12.31 UP TO DATE Pruritic rash 46212563 L 28.2 AcuteEduca blane on diagnosis as well as potential complicati ons/conseq uences if untreatedT reatment options discussed as well.Treat ment with Prednisone recommende d and patient agree Vaccine de clined by patient 9331829917 02 Z28.21 [id number] Ana Feliz MD [facility] [address] [place] [address] 08/24/2023 15:08:10 08/24/2023 15:40:27 Pruritic rash 08258976 L28.2 Betters/p treatment with Prednisone monitor recommende d and patient agree Screening for malignant neoplasm of colon 794232642 Z12.11 UP TO DATE Screening mammography 24 948675 Z12.31 UP TO DATE Influenza vaccination declined 402594562 Z28.21 Injury of finger 9209361 8 S69.92XA trauma with home front door 1 week agoeducate d on diff dxevaluate with X rayPRN Tylenol [id number] Ana Feliz MD [facility] [address] [place] [address] 08/27/2023 15:24:43 08/27/2023 15:52:26 Injury of finger 86050359 S69.92XA trauma with home front door 1 week agoeducate d on diff dxshe declined X rayPRN Tylenol Screening for malignant neoplasm of colon 414630634 Z12.11 UP TO DATE Screening mammography 24 139145 Z12.31 UP TO DATE Influenza vaccination declined 837095047 Z28.21 Dermatophytosis 66965286 B35.9 AcuteEduca blane on diagnosis as well as potential consequenc es if untreatedT reatment options discussed as well.Treat ment as below recommende d and patient agree [id number] IVANA Lara [address] [place] [address] 09/03/2023 13:47:45 09/03/2023 16:11:32 Pruritic rash 34540210 L28.2 Better s/p treatment finished at prednisone Urticaria 476354279 L50. 9 Patient was seen today for follow-up urticaria, disappear skin lesion, doing well Dermatophytosis 97489459 B35.9 Patient was seen last week for [...] ID Guarantor Name 03/09/2023 1 [employer] (HMO) [id number] Lesvia Josh [id number] Lesvia Josh 08/10/2023 1 [employer] (HMO) [id number] Lesvia Josh [id number] Lesvia Josh 08/10/2023 2 [place] [facility] [id number] Lesvia Josh Lesvia Josh 08/24/2023 1 [employer] (HMO) [id number] Lesvia Josh [id number] Lesvia Josh 08/24/2023 2 [place] [id number] Lesvia Josh Lesvia Josh 08/27/2023 1 [employer] (HMO) [id number] Lesvia Josh [id number] Lesvia Josh 08/27/2023 2 [place] [facility] [id number] Lesvia Josh Lesvia Josh 09/03/2023 1 [employer] (HMO) [id number] Lesvia Josh [id number] Lesvia Josh 09/03/2023 2 [place] [facility] [id number] Lesvia Josh Lesvia Josh Notes Date [...] since teenage years. She has constant left pentecostalism pain which is constant, can range from 5-9/10, sharp pain. She states that she had tried qnsi-ltg-eowdzle Tylenol, Advil with no improvement. She has [...] escalations. She states that she has seen reclaimer over 4 years ago which she states was a normal work-up. VINCE RICHARDS, DO [address] [facility] [address], [place], [address], [facility] - [facility], [facility] 03/09/2023 09:23:22 3 text/html Extensive/Preventative ExamReported bypatient.Reason [...] of colorectal cancer screener ?No Imported from [facility] on 08/10/2023 Ana Feliz MD [address], [place], [address], [facility], [facility] 08/10/2023 15:17:19 3 text/html Acute HPIReported bypatient.Reason for visit:acute complaint Location:index finger Quality:Trauma Onset/Timing:abrupt;1 weeks agoFollow upReported bypatient.Reason for visit:recheck of previous visit Severity:mild Current status:variably controlled Current control and compliance:compliant with regimen Ana Feliz MD [address], [place], [address], [facility], [facility] 08/24/2023 15:40:51 3 text/html RashReported bypatient.Reason for visit:exacerbation of chronic complaint Quality:macular;red;itch y Severity:moderate Duration:constant Context:no new detergents or skin products; no one else with similar rash Alleviating Factors:nothing gives relief Aggravating Factors:nothing makes it worse Associated Symptoms:no cold symptoms; no nausea; no vomiting; no diarrhea; no urinary symptoms; no chills; no fatigue; no change in weight Ana Feliz MD [address], [place], [address], [facility], [facility] 08/27/2023 15:50:58 3 text/html Follow upReported bypatient.Reason [...] no fatigue; no change in weight Tomás Garcia, MOTOR VEHICLE FIELD REPRESENTATIVE [address], [place], [address], [facility] - [facility], [facility] 09/03/2023 18:59:52 OBGyn Episode No OBEpisode recorded.
== END 2025-02-06 15:19 | disposition home or self-care (01) ==
PROVIDERS: PCP Nurse Practitioner Family
DX: M65.311 Trigger thumb, right thumb (principal); G56.01 Carpal tunnel syndrome, right upper limb
CPT/HCPCS: 99214

== ENCOUNTER → 2025-02-06 14:27 | Outpatient (BNVA) | payer MEDICAID, SELFPAY | PROVIDERS: PCP Nurse Practitioner Family | DX: M65.311 Trigger thumb, right thumb (principal); G56.01 Carpal tunnel syndrome, right upper limb | CPT/HCPCS: 99212 ==

== ENCOUNTER 2025-02-15 | Outpatient (REF) | payer MEDICAID, SELFPAY ==
[2025-02-22 14:07] LABS: HPV Genotype 16 Negative (Negative); HPV Genotype 18 Negative (Negative); HPV High Risk Negative (Negative)
--- OUTSIDE RECORDS SUMMARY | 2025-05-25 13:53 | XMS_ITS | Clinical Summary ---
Author Organization [employer] Address [address] [place] [address] Care Team Providers Care Senior Game Developer Name Role Phone Keturah Aguilar [facility] Primary Care Provider Allergies Active Allergy Reactions Criticality Noted Date [...] mouth at bedtime. 30 tablet 1 5 Active naproxen (Naprosyn) 500 MG tabletIndication s:Intractable migraine without status migrainosus, unspecified migraine type Take 1 tab bid for headache prn 60 tablet 5 Active loratadine (Claritin) 10 MG tablet Take 1 tablet (10 mg) by mouth Once per day. 30 tablet 5 Active Active Problems Problem Noted Date Diagnosed Date Encounter for annual routine gynecological exami [facility] 02/18/2025 Exercise counseling 12/31/2024 Dietary counseling 12/31/2024 [...] for her- walking at the mall, attending [employer]az[employer]- she will continue using strategies before seeking out for MH services. clinician engaged patient with active/reflective listening. Reviewed and assessed for risk, current stressors and protective factors using open-ended questions. Explored strategies to utilize in daily routine to decrease her sxs. Pt declined OP referral at this time. Not interested in starting medication. clinician will provide additional support during next medical appointment. Provided [facility] numbers. Sinusitis 09/20/2024 Assessment & Plan [...] Encounters Date Type Department Care Team Description 05/08/2025 2:30 PM EDT Office Visit [facility] [address] [place], [place] [phone] Nita Manzano, OD Cortical cataract of both eyes (Primary Dx); Presbyopia 05/08/2025 Travel 03/14/2025 Telephone [facility] [address] [place] [address] Keturah Aguilar FNP May Recall 02/27/2025 Telephone [facility] [address], [place] [phone] Keturah Aguilar FNP from Last 3 Months Immunizations Immunization Administration Dates Next Due DT (pediatric) 11/03/1983,12/11/1981,01/24/1981 [...] 70 02/15/2025 8:58 AM EDT Temperature 36.5 C (97.7 F) 02/15/2025 8:58 AM EDT Respiratory Rate 16 02/15/2025 8:58 AM EDT Oxygen Saturation 97% 02/15/2025 8:58 AM EDT Inhaled Oxygen Concentration - - Weight 76.7 kg (169 lb 3.2 oz) 02/15/2025 8:58 A M EDT Height 165.1 cm (5' 5 ) 02/15/2025 8:58 AM EDT Body Mass Index 28.16 02/15/2025 8:58 AM EDT Plan of Treatment Health Maintenance Due Date Last Done Comments CT Colonography 1966 Colonoscopy 1966 Colorectal Cancer Screening 1966 Dental Prophylaxis 1966 Dental X-Ray: Bitewings 1966 FIT DNA/Cologuard 1966 FIT 1966 FOBT 1966 Sigmoidoscopy 1966 Disability Screening 1966 Dental X-Ray: Full Mouth 04/04/2012 04/03/2009 Dental Oral Exam 08/26/2013 02/22/2013 Pneumococcal Vaccine: 50+ Years (1 of 1 - PCV) 2016 Zoster Vaccines (1 of 2) 2016 DTaP/Tdap/Td Vaccines (2 - Td or Tdap) 04/06/2022 04/06/2012, 07/19/2004 COVID-19 Vaccine (2 - season) 2024 10/27/2022 Influenza Vaccine (Season Ended) 2025 08/07/2022, 10/19/2017, 11/27/2016, Additional history exists SDOH Screening 12/14/2025 12/14/2024 Alcohol/Substance Use Screening 12/23/2025 12/23/2024 Depression Screening 12/23/2025 12/23/2024, 12/23/19 Tobacco Screening 05/08/2026 05/08/2025 Mammogram 03/27/2027 03/27/2025, 04/2 04/2024, 07/22/2019 Cervical Cancer Screening 02/15/2030 HPV/Cotest 02/15/2030 02/15/2025, [...] patient's age to complete this topic Meningococcal B Vaccine Aged Out No l onger eligible based on patient's age to complete [...] Procedure Name Priority Date/Time Associated Diagnosis Comments BI MAMMOGRAM SCREENING TOMOSYNTHESIS BILATERAL Routine 03/27/2025 2:55 PM EDT Well adult health check PAP SMEAR Routine 02/15/2025 9:30 AM EDT Encounter for annual routine gynecological examination HPV DNA, LOW/HIGH RISK Routine 02/15/2025 12:00 AM EDT HEPATITIS C AB W/REFL TO HCV RNA, QN, PCR Routine 12/26/2024 1:40 PM EST Well adult health check HIV 1/2 ANTIGEN/ANTIBODY, FOURTH GENERATION W/RFL Routine 12/26/2024 1:40 PM EST Well adult health check PERIODIC ORAL EVALUATION - ESTABLISHED PATIENT Routine 02/22/2013 12:00 AM EDT PANORAMIC RADIOGRAPHIC IMAGE Routine 04/03/2009 12:00 AM EDT from Last 3 Months or Most Recently Relevant to Health Maintenance Results * BI Mammogram Screening Tomosynthesis Bilateral (03/27/2025 2:55 PM EDT) Anatomical Region Laterality Modality Breast Bilateral Mammography 03/27/2025 2:55 PM EDT Narrative 04/02/2025 5:53 PM EDT [facility] [address] [place] [address] Mammography Report Signed Patient: Lesvia Xie MR#: [id number] : 1965 Acct:[id number] Age/Sex: 59 / F ADM Date: 03/27/25 Loc: MAMMO Attending Dr: Keturah Aguilar RESEARCH SOIL SCIENTIST Ordering Physician: Keturah Aguilar Results: 1Negat erasmo Date of Service: 03/27/25 Follow Up: 1 Year From [facility] Mammogram Procedure(s): MM tomosynthesis screening BI Accession Number(s): [id number] cc: Keturah Aguilar [employer]EARCH SOIL SCIENTIST EXAMINATION: MM SCREENING DIGITAL BREAST TOMOSYNTHESIS, BILATERAL CLINICAL INFORMATION: Screening. Asymptomatic. COMPARISON: Mammography: Comparison is made with available priors TECHNIQUE: Digital breast mammography with tomosynthesis is performed in both the craniocaudal and mediolateral oblique views along with computer-aided detection (CAD). FINDINGS: The breasts are heterogeneously dense, which [...] target due date for their next mammogram. Electronically signed by: Laurence Callaway DO 04/02/2025 05:50 PM EDT Dictated By: Laurence Callaway DO Signed By: <Electronically signed by Laurence Callaway DO in OV> 04/02/25 1750 DD/ 1455 TD/TT: 03/27/25 151 Back Tender Paper Machine: Procedure Note Donotuseinterpreter, Image - 04/02/2025 [facility] [address] [place], [place] [address] Mammography Report Signed Patient: Lesvia XieMR#: [id number] : 1965Acct:[id number] Age/Sex: 59 / FADM Date: 03/27/25 Loc: MAMMO Attending Dr: Keturah Aguilar RESEARCH SOIL SCIENTIST Ordering Physician: Keturah Aguilar FNPResults: 1Negat erasmo Date of Service: 03/27/25Follow Up: 1 Year From Orig inal Mammogram Procedure(s): MM tomosynthesis screening BI Accession Number(s): [id number] cc: Keturah Aguilar RESEARCH SOIL SCIENTIST EXAMINATION: MM SCREENING DIGITAL BREAST TOMOSYNTHESIS, BILATERAL CLINICAL INFORMATION: Screening. Asymptomatic. COMPARISON: Mammography: Comparison is made with available priors TECHNIQUE: Digital breast mammography with tomosynthesis is performed in both the craniocaudal and mediolateral oblique views along with computer-aided detection (CAD). FINDINGS: The breasts are heterogeneously dense, which [...] target due date for their next mammogram. Electronically signed by: Laurence Callaway DO 04/02/2025 05:50 PM EDT Dictated By: Laurence Callaway DO Signed By: <Electronically signed by Laurence Callaway DO in OV> 04/02/25 1750 DD/ 1455 TD/TT: 03/27/25 1511 Back Tender Paper Machine: [facility] PROCED[facility] Edited Resul t - Final * Pap Smear (02/15/2025 9:30 AM EDT) Swab Cervical swab / Unknown 02/15/2025 9:30 AM EDT 02/16/2025 6:00 AM EDT [facility] - 02/22/2025 10:16 AM EDT ----- ------- Name: Josh MayrodneymelaLesvia Age/Sex: 59/F : 1965 Unit#: [id number] Attend Dr: Re02/15/25 Status: PRE REF Location: [facility] Disch: ----- ------- SPEC : [id number] RECD: 02/16/25 STATUS: FRANDY FARIA NUM: [id number] ESE: 02/15/[address]: Keturah Aguilar ENTERED: 02/16/25 SP TYPE: Pap Smr OT : ORDERED: Pap Smear Interpretation Satisfactory for evaluation. Negative for intraepithelial lesion or malignancy. Mild inflammation. HPV High Risk: Negative HPV Genotyping 16: Negative HPV Genotyping 18: Negative Clinical Information LMP:Post menopausal Previous PAP test:Unknown date/findings Material Received Cervix ----- ------- Signed (signature on file) RIK Phillips (ASCP) 02/22/25 1016 ----- ------- END OF REPORT Keturah Aguilar [facility] LAB CYTOLOGY ORDERABLES Final Result [facility] [address] [place] [phone] * HPV DNA, Low/High Risk (02/15/2025 12:00 AM EDT) HPV High Risk Negative Negative [facility] HPV Genotype 16 Negative Negative [facility] HPV Genotype 18 Negative Negative [facility] Comment:HPV testing performe d at [facility] (IA#[id number]), [address] [place] [address].Testing for HPV was performed using the Jeannine [...] detected. 02/15/2025 02/16/2025 6:0 0 AM EDT [facility] LAB BLOOD ORDERABLES Final Res ult Performing Organization Address [facility] Co de Phone Number [facility] [address] [place] [address] [phone] * Hepatitis C Antibody with Reflex to HCV, RNA, Quantitative, Real-Time PCR (12/26/2024 1:40 PM EST) Hepatitis C Antibody Nonreactive Nonreactive [facility] Comment:Antibodies to HCV no t detected; does not exclude early acuteHCV infection. Blood Venous blood specimen / Unknown 12/26/2024 1:40 PM EST 12/26/2024 4:23 PM EST [facility] LAB BLOOD ORDERABLES Final Res ult Performing Organization Address [facility] Co de Phone Number [facility] [address] [place] [phone] * HIV-1/2 Antigen and Antibodies, Fourth Generation, with Reflexes (12/26/2024 1:40 PM EST) HIV AB/AG Nonreactive Nonreactive [facility] Comment:HIV-1 p24 Ag and/or HIV-1/HIV-2 Ab not detected.A test result that is nonreactive does not exclude thepossibility of exposure to or infection with HIV-1 and/orHIV-2. Nonreactive results in this assay for individualswith prior exposure to HIV-1 and/or HIV-2 may be due toantigen and antibody levels that are below the limit ofdetection of this assay.The [employer] HIV Ag/Ab Combo assay result andsupplemental assay results should be interpreted inconjunction with the patient's clinical presentation,history and other laboratory results. If the results areinconsistent with clinical evidence, additional testing issuggested to confirm the result. Blood Venous blood specimen / Unknown 12/26/2024 1:40 PM EST 12/26/2024 4:23 PM EST Keturah Aguilar [employer] SOIL SCIENT[employer] LAB BLOOD ORDERABLES Final Res ult [facility] [address] [place] [phone] from Last 3 Months or Most Recently Relevant to Health Maintenance [place] [address] [place] [address] C3 2 [facility] STAND ADULT Care Teams Senior Game Developer Relationship Specialty Start Date End Date Keturah Aguilar FNP [address] [place] [address] PCP - General Family Medicine 09/29/24
== END 2025-02-15 00:01 | disposition home or self-care (01) ==
LOC: HO.LNP
PROVIDERS: Visit Provider Nurse Practitioner Family
DX: Z01.419 Encounter for gynecological examination (general) (routine) without abnormal findings (principal); Z11.51 Encounter for screening for human papillomavirus (HPV)
CPT/HCPCS: 87626; 88175

== ENCOUNTER 2025-03-27 14:51 | Outpatient (REF) | payer MEDICAID, SELFPAY ==
--- OUTSIDE RECORDS SUMMARY | 2025-03-27 17:41 | XMS_ITS | Data Portability ---
Author Organization [place] - [facility] [employer], [facility], [facility] Address [address] [place] [address] Assessment No assessment recorded. Plan of Treatment Reminders Order Date Submit Date Provider Last Modified By Organization Details Last Modified Time Details Appointments None recorded. Lab erythrocyte sedimentati on rate by westergren method 2022 023 [facility], [address], [place], [address], 3 19:22:29 C-reactive protein, quantitativ e, serum or plasma 2022 023 [facility], [address], [place], [address], 3 19:22:28 Referral None recorded. Procedures None recorded. Surgeries None recorded. Imaging XR, finger(s) 2022 023 [email or web address] [facility], [facility], All Locations, [place], [address], 4 12:03:53 MRI, brain, w/o contrast - MRI brain WO; headaches 2022 023 [facility], [facility], All Locations, [place], [address], 3 12:09:26 Medication Orders ketoconazol e 2 % topical cream 2022 023 [email or web address], [address], [place], [place], [id number], 3 18:55:36 cetirizine 10 mg tablet 2022 023 [facility] #81719, [address], [place], [place], [id number], 3 14:31:54 montelukast 10 mg tablet 2022 023 [facility] #34046, [address], [place], [place], [id number], 3 14:31:51 terbinafine HCl 250 mg tablet 2022 023 [facility] #47137, [address] [place], [place], [id number], 3 15:47:43 ketoconazol e 2 % topical cream 2022 023 [facility] #28033, [address] [place], [id number], 3 15:47:44 prednisone 10 mg tablet 2022 023 [facility] #22939, [address] [place], [place], [id number], 3 15:12:49 nortriptyli ne 25 mg capsule 2022 023 [facility] #66089, [address], [place], [place], [id number], 3 09:22:27 rizatriptan 10 mg tablet 2022 023 [facility] #83250, [address] [place], [id number], 09:22:27 Patient TargetsNo targets recorded. Patient Instructions Encounter Date Encounter Id Patient Instructions Last Modified By Organization Details Last Modified Time 03/09/2023 [id number] This note was completed using Sen[employer] speech recognition software. Grammatical errors, random word [...] care. [email or web address] Not available 03/09/2023 09:02:24 08/10/2023 [id number] mamograf? ? ?a: sobre esta prueba - [...] answered. [email or web address] Not available 08/10/2023 15:07:34 08/27/2023 [id number] call me if not better in few days. Risk, benefits and side effect of medication DW pt, all questions answered. [email or web address] Not available 08/27/2023 15:46:36 09/03/2023 [id number] urticaria: instrucciones de cuidado - [hives: care instructions] [email or web address] Not available 09/03/2023 14:31:28 Reason for Referral [...] procc ess is occur ing. Not Available [facility] [address], [place], [address], 03/10/2023 19:22:27 03/10/20 23 03/10/2023 SED RATE, WESTE RGREN sed rate, westergren_V 16 mm/HR 0-30 Not Available [facility] [address], [place], [address], 03/10/2023 19:22:28 03/10/20 23 03/10/2023 VENIP UNCTU RE results Compl ete Not Available [facility] [address], [place], [address], 03/10/2023 14:23:22 03/17/20 23 03/17/2023 MRI, brain [...] By: Vini Preciado James Sign Date: [id number] [facility] All Locations, [place], [address], 10/21/2024 19:44:12 05/07/2005/07/2023 US, pelvi s, trans [...] de leon D.O., Paul Sign Date: [id number] [facility] All Locations, [place], [address], 10/21/2024 19:42:18 06/04/20 23 05/22/2023 MAMMO , [...] ed of these findin gs as per [employer] law. BI-RAD S catego ry: 2: Benign findin gs RECOMM ENDATI ONS: Annual screen ing mammog belgica. Notes: -The patien t's iqugmiut fibrog landul ar tissue can obscur e [...] Navjot Mendoza Michae l Sign Date: [id number] [facility] All Locations, [place], [address], 10/21/2024 19:46:20 Result Notes None recorded. Problems Name Problem SNOMED Code Status Onset Date Resolution Date Notes Provider Name and Address Organization Details Recorded Time Onychomycosis 621366509 Active 2021 Ana Feliz MD [address], [place], [address], [facility], [employer] 14:33:06 Menopausal symptom 58961451 Active 2021 Ana Feliz MD [address], [place], [address], [facility], [facility] 14:33:43 Migraine 68994904 Active 2021 Ana Feliz MD [address], [place], [address], [facility] Phys[facility], [employer] 14:33:46 Hyperlipidemia 84579955 Active 2021 Ana Feliz MD [address], [place], [address], [facility] Phys[facility], [employer] 15:04:42 Problem Notes None recorded. Procedures Surgical History Date Name Laterality Status Provider Name and Address Organization Details Recorded Time 3 Date of Last Mammogram completed Prema Bineftaly [facility], [facility] 08/10/2023 14:19:53 3 Mammogram Screening completed Prema Bineftaly [facility], [facility] 08/10/2023 14:19:46 3 Breast/Pelvic/P ap - Medicare [id number]/Q0091 completed JOY HILARIO APRN [address], [place], [address], [facility], [facility] 01/29/2023 10:19:30 2 Walk-In Basic Visit completed Chato Arreguin MD [address], [place], [address], [facility] - [facility], [facility] 07/23/2022 17:44:48 0 [facility], [facility] 03/05/2022 14:15:47 8 Colonoscopy completed Ana Feliz MD [address], [place], [address], [facility] - [facility], [facility] 01/15/2023 12:54:13 3 [facility], [facility] 03/05/2022 14:17:00 Imaging Results Imaging Date Name Status LastModified by Organization Details LastModified Time 03/17/2023 MRI, brain, w/o contrast completed [id number] [facility] All Locations, [place], [address], 10/21/2024 19:44:12 05/07/2023 US, pelvis, transabdominal + transvaginal completed [id number] [facility] All Locations, [place], [address], 10/21/2024 19:42:18 05/22/2023 MAMMO, screening, tomosynthesis, bilateral completed [id number] [facility] All Locations, [place], [address], 10/21/2024 19:46:20 Procedure Notes None recorded. Medical Equipment None Reported. Allergies No known drug allergies Medications Name Sig Start Date Stop Date Status Note LastModified by Organization Details LastModified Time prednisone 10 mg tablet 40mg po qd x 3 [id number] po qd x 3 [id number] po qd x 3 [id number] po qd x 3 day 08/24 completed [...] 3 165.1 cm 19 /min 29.6 kg/m2 92316.4 4 g 98 [degF] 88 /min 98 % 98 % 112 mm[Hg] 78 mm[Hg] Vince Knight [facility], [facility] 3 08:45:36 Date Recorded Body height Pain severity - 0-10 verbal numeric rating [Score] - Reported Body mass index (BMI) Body weight Heart rate Respiratory rate Oxygen saturation Oxygen saturation in Arterial blood by Pulse oximetry Systolic blood pressure Diastolic blood pressure Provider Name and Address Organization Details Last Updated DateTime 3 165.1 cm 0 29.8 kg/m2 29458.0 3 g 81 /min 18 /min 99 % 99 % 128 mm[Hg] 72 mm[Hg] Prema Cotto [facility], [facility] 3 14:24:06 Date Recorded Body height Pain severity - 0-10 verbal numeric rating [Score] - Reported Body mass index (BMI) Body weight Heart rate Respiratory rate Oxygen saturation Oxygen saturation in Arterial blood by Pulse oximetry Systolic blood pressure Diastolic blood pressure Provider Name and Address Organization Details Last Updated DateTime 3 165.1 cm 0 29.6 kg/m2 99391.4 4 g 85 /min 18 /min 98 % 98 % 120 mm[Hg] 72 mm[Hg] Prema Cotto [facility], [facility] 3 15:15:52 Date Recorded Body height Pain severity - 0-10 verbal numeric rating [Score] - Reported Body mass index (BMI) Body weight Heart rate Respiratory rate Oxygen saturation Oxygen saturation in Arterial blood by Pulse oximetry Systolic blood pressure Diastolic blood pressure Provider Name and Address Organization Details Last Updated DateTime 3 165.1 cm 0 29.6 kg/m2 94536.4 4 g 83 /min 18 /min 98 % 98 % 128 mm[Hg] 62 mm[Hg] Prema Cotto [facility], [facility] 3 15:31:05 Date Recorded Body height Body mass index (BMI) Body weight Heart rate Respiratory rate Oxygen saturation Oxygen saturation in Arterial blood by Pulse oximetry Systolic blood pressure Diastolic blood pressure Provider Name and Address Organization Details Last Updated DateTime 3 165.1 cm 29.3 kg/m2 24376.2 6 g 76 /min 18 /min 98 % 98 % 120 mm[Hg] 70 mm[Hg] Fausto Nguyen [facility], [facility] 3 14:12:54 Social History Question Answer Notes LastModified by Organizat ion Details LastModified Time Tobacco Smoking Status Never Smoker Serene Mondragon danielle [facility], [facility] 03/05/2022 14:14:10 Do You Have An Advance [...] Do You Have A Medical Power Of Freight Engineer? No Information not available 01/29/2023 What Was [...] quadrivalent, PF 08/07/2022 completed Ana Feliz MD [address] [facility] [address], [place], [address], [facility] - [facility], [facility] 08/07/2022 15:47:40 COVID-19, mRNA, LNP-S, PF, 100 mcg/0.5mL dose or 50 mcg/0.25mL dose 03/29/2021 completed Not Available [facility] 3 11:35:12 COVID-19, mRNA, LNP-S, PF, 100 mcg/0.5mL dose or 50 mcg/0.25mL dose 04/19/2021 completed Not Available [facility] 3 11:35:12 COVID-19, mRNA, LNP-S, PF, 100 mcg/0.5mL dose or 50 mcg/0.25mL dose 10/31/2021 completed Not Available [facility] 3 11:35:12 COVID-19, mRNA, LNP-S, PF, 30 mcg/0.3 mL dose 03/29/2021 completed Svitlana Lopez [facility] 07/23/2022 16:58:25 COVID-19, mRNA, LNP-S, PF, 30 mcg/0.3 mL dose 10/31/2021 completed Svitlana Lopez null, [facility] 07/23/2022 16:58:25 COVID-19, mRNA, LNP-S, PF, 30 mcg/0.3 mL dose 04/19/2021 [facility] 16:58:25 COVID-19, mRNA, LNP-S, bivalent, PF, 30 mcg/0.3 mL dose 10/27/2022 completed Fausto Nguyen [facility], [facility] 11/19/2022 08:49:25 Past Encounters Encounter ID Performer Location Encounter Start Date Encounter Closed Date Diagnosis/Indication Diagnosis SNOMED-CT Code Diagnosis ICD10 Code Diagnosis Note [id number] [facility] Feliz MD [facility] [address] [place] [address] 03/05/2022 13:51:57 03/05/2022 14:36:25 Migraine 27282513 G43.909 Does OK with PRN Advail Migrainere educated on dxeducated on Onychomycosis 801592023 B35.1 Left big toeEducate d on diagnosis as well as potential complicati ons/conseq uences if untreatedT reatment options discussed as well.Topic al treatment as below recommende d and patient agree Menopausal symptom 49095 002 N95.1 Educated on diff diagnosis as well as potential treatment. monitor recommende d and patient agree Anti-nucle ar factor detected 731229776 R76.8 positive on 2020had Skin changes at that timeshe was refer to Rheumatolo gist by Dr Bal but did not go.she decline to go to any specialist at this time [id number] Chato Arreguin MD [facility] [address] [place] [address] 07/23/2022 16:27:14 07/23/2022 17:53:34 Headache 80970117 R51.9 [id number] Ana Feliz MD [facility] [address] [facility] [address] 08/07/2022 14:30:49 08/07/2022 15:14:54 Hyperlipidemia 52498790 E78.2 New DxEducated on diagnosis as well as potential complicati ons/conseq uences if untreatedT reatment options discussed as well.Treat ment Atorvastat in 10mg po qd recommende d and patient agree Calcificat ion of basal ganglia 2193621878 8499381 G23.8 new finding on CTEducated on diff diagnosis as well as potential consequenc esNeuro consult recommende d and patient agree Migraine 29651087 G43.90 9 worsenchro nicher otc meds are not working any morerefer to neurologis tstart PRN sumatripta n PRN and schedule topamax as below for better control Influenza vaccine needed 6060073148 106 Z23 [id number] Tomás Garcia APRN [facility] [address] [place] [address] 10/07/2022 15:16:14 10/07/2022 16:36:22 Migraine 32977585 G43.909 Unchangedc hronicher otc meds are not workingshe is not using topamax as indicatedw as refere to neurologis t but nor seen yetContinu es PRN sumatripta n and take topamax as indicated Hyperlipidemia 82451912 E78.2 LDL 136Betteri ncrease Atorvastat in to 20 mg po qd recommende d for better control and patient agreefi labs [id number] Ana Feliz MD [facility] [address] [place] [address] 11/19/2022 08:41:19 11/19/2022 11:26:30 Migraine 43334373 G43.909 Worsenchro nicher otc meds are not workingshe is not using topamax as indicated due to side effects on her Abdomen.heri capps refere to neurologis t but nor seen yetDoes not feel well with Sumatripta nhold PRN sumatripta nadd trial of Ubrelvy DW her and recommende d [id number] Ana Feliz MD [facility] [address] [place] [address] 01/15/2023 12:08:37 01/15/2023 13:00:43 Migraine 71746442 G43.909 not betterchro nicher otc meds are not workingshe is not using topamax as indicated due to side effects on her Abdomen.heri capps refere to neurologis t but nor seen yetDoes not feel well with Sumatripta nUbrelvy did not workawait Neurologis t consult Screening mammography 24 794927 Z12.31 [id number] JOY HILARIO APRN [facility] [address] [place] [address] 01/29/2023 08:49:59 01/29/2023 10:34:15 Screening mammography 65195081 Z12.31 Pain in pelvis 65561954 R10.2 acuteunkno wn etiologyha ppens during sexI will obtain US pelvicmana gement based on the findings Screening for malignant neoplasm of cervix 448793928 Z12.4 Dyspareunia 32236722 N94 .10 as above Depression screening 171 682937 Z13.31 A Depression screening assessment was conducted during this encounter and all actions of this assessment and time elements up to 15 minutes were met [id number] VINCE RICHARDS DO [facility] [address] [facility] [address] [facility] [address] [place] [address] 03/09/2023 08:33:06 03/09/2023 09:44:50 Chronic migraine without aura 2245626841 38586 G43.709 Patient complains of increased headache pain [...] some people. Calcificat ion of basal ganglia 2116934344 7207098 G23.[address] brain from 07/24/2022 which [...] in 6 months or sooner if needed. [id number] Ana Feliz MD [facility] [address] [place] [address] 08/10/2023 14:06:05 08/10/2023 15:20:18 Adult health examination 325105685 Z00.01 Preventive visit done today. Anticipato ry guidance given as noted below.decl ined EKG Increased body mass index 68164033 Z68.29 elevated BMI. Discussed diet and better therapeuti c lifestyle changes. Diet education 87215940 Z71.3 as above Screening for malignant neoplasm of colon 849057064 Z12.11 UP TO DATE Screening mammography 24 377490 Z12.31 UP TO DATE Pruritic rash 96208625 L 28.2 AcuteEduca blane on diagnosis as well as potential complicati ons/conseq uences if untreatedT reatment options discussed as well.Treat ment with Prednisone recommende d and patient agree Vaccine de clined by patient 1910490477 02 Z28.21 [id number] Ana Feliz MD [facility] [address] [place] [address] 08/24/2023 15:08:10 08/24/2023 15:40:27 Pruritic rash 44489253 L28.2 Betters/p treatment with Prednisone monitor recommende d and patient agree Screening for malignant neoplasm of colon 363069112 Z12.11 UP TO DATE Screening mammography 24 116562 Z12.31 UP TO DATE Influenza vaccination declined 787259146 Z28.21 Injury of finger 9651564 8 S69.92XA trauma with home front door 1 week agoeducate d on diff dxevaluate with X rayPRN Tylenol [id number] Ana Feliz MD [facility] [address] [place] [address] 08/27/2023 15:24:43 08/27/2023 15:52:26 Injury of finger 64376710 S69.92XA trauma with home front door 1 week agoeducate d on diff dxshe declined X rayPRN Tylenol Screening for malignant neoplasm of colon 618011520 Z12.11 UP TO DATE Screening mammography 24 288780 Z12.31 UP TO DATE Influenza vaccination declined 059144305 Z28.21 Dermatophytosis 32685910 B35.9 AcuteEduca blane on diagnosis as well as potential consequenc es if untreatedT reatment options discussed as well.Treat ment as below recommende d and patient agree [id number] IVANA Lara [address] [place] [address] 09/03/2023 13:47:45 09/03/2023 16:11:32 Pruritic rash 75318696 L28.2 Better s/p treatment finished at prednisone Urticaria 804440636 L50. 9 Patient was seen today for follow-up urticaria, disappear skin lesion, doing well Dermatophytosis 66659806 B35.9 Patient was seen last week for [...] ID Guarantor Name 03/09/2023 1 [employer] (HMO) [id number] Lesvia Josh [id number] Lesvia Josh 08/10/2023 1 [employer] (HMO) [id number] Lesvia Josh [id number] Lesvia Josh 08/10/2023 2 [place] [facility] [id number] Lesvia Josh Lesvia Josh 08/24/2023 1 [employer] (HMO) [id number] Lesvia Josh [id number] Lesvia Josh 08/24/2023 2 [place] [id number] Lesvia Josh Lesvia Josh 08/27/2023 1 [employer] (HMO) [id number] Lesvia Josh [id number] Lesvia Josh 08/27/2023 2 [place] [facility] [id number] Lesvia Josh Lesvia Josh 09/03/2023 1 [employer] (HMO) [id number] Lesvia Josh [id number] Lesvia Josh 09/03/2023 2 [place] [facility] [id number] Lesvia Josh Lesvia Josh Notes Date [...] since teenage years. She has constant left church pain which is constant, can range from 5-9/10, sharp pain. She states that she had tried afqe-gii-ahxnwiv Tylenol, Advil with no improvement. She has [...] escalations. She states that she has seen mold stamper over 4 years ago which she states was a normal work-up. VINCE RICHARDS, DO [address] [facility] [address], [place], [address], [facility] - [facility], [facility] 03/09/2023 09:23:22 3 text/html Extensive/Preventative ExamReported bypatient.Reason [...] of colorectal cancer screener ?No Imported from [facility] on 08/10/2023 Ana Feliz MD [address], [place], [address], [facility] Physician [facility], [facility] 08/10/2023 15:17:19 3 text/html Acute HPIReported bypatient.Reason for visit:acute complaint Location:index finger Quality:Trauma Onset/Timing:abrupt;1 weeks agoFollow upReported bypatient.Reason for visit:recheck of previous visit Severity:mild Current status:variably controlled Current control and compliance:compliant with regimen Ana Feliz MD [address], [place], [address], [facility], [facility] 08/24/2023 15:40:51 3 text/html RashReported bypatient.Reason for visit:exacerbation of chronic complaint Quality:macular;red;itch y Severity:moderate Duration:constant Context:no new detergents or skin products; no one else with similar rash Alleviating Factors:nothing gives relief Aggravating Factors:nothing makes it worse Associated Symptoms:no cold symptoms; no nausea; no vomiting; no diarrhea; no urinary symptoms; no chills; no fatigue; no change in weight Ana Feliz MD [address], [place], [address], [facility], [facility] 08/27/2023 15:50:58 3 text/html Follow upReported bypatient.Reason [...] fatigue; no change in weight Tomás Garcia, FINANCIAL DEVELOPER [address], [place], [address], [facility] - [facility], [facility] 09/03/2023 18:59:52 OBGyn Episode No OBEpisode recorded.
--- OUTSIDE RECORDS SUMMARY | 2025-03-27 17:41 | XMS_ITS | Clinical Summary ---
Author Organization [employer] Address [address] [facility] [address] [place] [address] Care Team Providers Care Sanitation Tank Washer Name Role Phone Keturah Aguilar HISTORIC SITES SUPERVISOR Primary Care Provider [phone] Allergies Active Allergy Reactions Criticality Noted Date Comments Hydroxyzine Rash Low 02/15/2025 Medications * This document contains information received from the source organization and may not represent a complete record from that organization. famotidine (Pepcid) 40 MG tablet TOME [place]OR[place] TABLETA TODOS LOS D 3 Active EPINEPHrine (Epipen) 0.3 MG/0.3ML injection syringe Inject 0.3 mL (0.3 mg) as directed 1 (one) time if needed for anaphylaxis for up to 2 doses. Inject into upper leg. Call 911 after use. 1 each 1 4 Active Diclofenac Sodium 1 % gelIndications:T humb pain, right Apply topically to affected areas twice daily 150 g 1 4 Active Xolair 300 MG/2ML solution prefilled syringe Inject 300 mg as directed every 28 (twenty-eight) days. 5 Active amitriptyline (Elavil) 10 MG tabletIndication s:Intractable migraine without status migrainosus, unspecified migraine type Take 1 tablet (10 mg) by mouth at bedtime. 30 tablet 1 5 04/04/20 25 Active naproxen (Naprosyn) 500 MG tabletIndication s:Intractable migraine without status migrainosus, unspecified migraine type Take 1 tab bid for headache prn 60 tablet 5 Active loratadine (Claritin) 10 MG tablet Take 1 tablet (10 mg) by mouth Once per day. 30 tablet 5 Active Active Problems Problem Noted Date Diagnosed Date Encounter for annual routine gynecological exami [facility] 02/18/2025 Exercise counseling 12/31/2024 Dietary counseling 12/31/2024 Well adult health check 12/31/2024 Carpal tunnel syndrome of right wrist 12/31/2024 Adjustment disorder with depressed mood 12/23/19 25 [...] for her- walking at the mall, attending shinto- she will continue using strategies before seeking out for MH services. clinician engaged patient with active/reflective listening. Reviewed and assessed for risk, current stressors and protective factors using open-ended questions. Explored strategies to utilize in daily routine to decrease her sxs. Pt declined OP referral at this time. Not interested in starting medication. clinician will provide additional support during next medical appointment. Provided [facility] numbers. Sinusitis 09/20/2024 Assessment & [...] symptom 03/05/2022 Migraine 03/05/2022 Onychomycosis 03/05/2022 Encounters Date Type Department Care Team Description 03/14/[address] [facility] [address] [place] [address] Keturah Aguilar FNP May Recall 02/27/2025 Telephone [facility] [address] [place] [address] Keturah Aguilar FNP 02/15/2025 9:00 AM EDT Procedure Visit [facility] [address] [place] [address] Keturah Aguilar FNP Encounter for annual routine gynecological examination (Primary Dx) 02/15/2025 Orders Only [facility] [address] [place] [address] Keturah Aguilar FNP 02/15/2025 Travel 02/10/2025 Population Health Risk Score [facility] ([facility]) Department [address] [place] [phone] Provider, Population Health Generic 02/03/2025 1:30 PM EST Office Visit [address] [address] Keturah Aguilar FNP Intractable migraine without status migrainosus, unspecified migraine type (Primary Dx) 02/03/2025 Travel 01/26/[address] [facility] [address] [place], [place] [phone] Keturah Aguilar FNP chartprep from Last 3 Months Immunizations Name Administration Dates Next Due DT (pediatric) 11/03/1983,12/11/1981,01/24/1981 Hep A, Adult 09/05/2014,02/27/2014 Hep B, adult 12/11/2014,05/25/2014,02/27/2014 Influenza injectable quadriv alent IIV4 with preservative 10/19/2017,12/03/2015 Influenza injectable quadriv alent preservative free 08/07/2022,11/27/2016 Influenza, IIV3, injectable 09/05/2014, 0 Influenza, Split (incl. lauryn fied surface antigen) 08/18/2013,12/06/2012 MMR 12/01/1992,11/03/1980 OPV, Trivalent 11/03/1983,01/24/1981,12/11/1980 Pfizer Covid-19 Vaccine 12+ 10/27/2022 TD [...] with others, in a hotel, in a long-term, living outside on the street, on a [...] Sign Reading Time Taken Comments Blood Pressure 147/73 02/15/2025 8:58 AM EDT Pulse 70 02/15/2025 8:58 AM EDT Temperature 36.5 ??C (97.7 ??F) 02/15/2025 8:58 AM ED T Respiratory Rate 16 02/15/2025 8:58 AM EDT Oxygen Saturation 97% 02/15/2025 8:58 AM EDT Inhaled Oxygen Concentration - - Weight 76.7 kg (169 lb 3.2 oz) 02/15/2025 8:58 A M EDT Height 165.1 cm (5' 5 ) 02/15/2025 8:58 AM EDT Body Mass Index 28.16 02/15/2025 8:58 AM EDT Plan of Treatment Upcoming Encounters Date Type Department Care Team (Late st Contact Info) Description 05/08/2025 2:30 PM EDT Office Visit [facility] [address] [place] [address] Nita Manzano, OD [address] [place] [address] Health Maintenance Due Date Last Done Comments CT Colonography 1965 Colonoscopy 1966 Colorectal Cancer Screening 1966 Dental Prophylaxis 1966 Dental X-Ray: Bitewings 1966 FIT DNA/Cologuard 1966 FIT 1966 FOBT 1966 Sigmoidoscopy 1966 Dental X-Ray: Full Mouth 04/04/2012 04/03/2009 Dental Oral Exam 08/26/2013 02/22/2013 Pneumococcal Vaccine: 50+ Years (1 of 1 - PCV) 2016 Zoster Vaccines (1 of 2) 2016 DTaP/Tdap/Td Vaccines (2 - Td or Tdap) 04/06/2022 04/06/2012, 07/19/2004 COVID-19 Vaccine ( season) 2024 10/27/2022, 10/31/2021, 04/19/2021, Additional history exists Influenza Vaccine (#1) 2024 , 10/19/2017, 11/27/2016, Additional history exists SDOH Screening 12/14/2025 12/14/2024 Alcohol/Substance Use Screening 12/23/2025 12/23/2024 Depression Screening 12/23/2025 12/23/2024, 12/23/19 Tobacco Screening 02/15/2026 02/15/2025 Mammogram 03/25/2026 03/25/2024, 07/0 04/2023, 06/04/2023, Additional history exists Cervical Cancer Screening 02/15/2030 HPV/Cotest 02/15/2030 02/15/2025, 08/12/2016 Pap Smear 02/15/2030 02/15/2025 RSV Patients and Patients Aged 60 years [...] Procedure Name Priority Date/Time Associated Diagnosis Comments PAP SMEAR Routine 02/15/2025 9:30 AM EDT Encounter for annual routine gynecological examination HPV DNA, LOW/HIGH RISK Routine 02/15/2025 12:00 AM EDT HEPATITIS C AB W/REFL TO HCV RNA, QN, PCR Routine 12/26/2024 1:40 PM EST Well adult health check HIV 1/2 ANTIGEN/ANTIBODY, FOURTH GENERATION W/RFL Routine 12/26/2024 1:40 PM EST Well adult health check BI MAMMOGRAM SCREENING TOMOSYNTHESIS BILATERAL Routine 03/25/2024 3:41 PM EDT PERIODIC ORAL EVALUATION - ESTABLISHED PATIENT Routine 02/22/2013 12:00 AM EDT PANORAMIC RADIOGRAPHIC IMAGE Routine 04/03/2009 12:00 AM EDT from Last 3 Months or Most Recently Relevant to Health Maintenance Results * Pap Smear (02/15/2025 9:30 AM EDT) Swab Cervical swab / Unknown 02/15/2025 9:30 AM EDT 02/16/2025 6:00 AM EDT [facility] - 02/22/2025 10:16 AM EDT ----- ------- Name: Lesvia Xie ?Age/Sex: 59/F ? : 1965 Unit#: [id number] ?? Attend Dr: ?Re02/15/25 ?Status: PRE REF ? Location: HO.LNP ?Disch: ? ----- ------- SPEC : [id number] ? RECD: 02/16/25 ? STATUS: ??SOUT ? REQ NUM: [id number] ? ESE: 02/15/25 ? SUBM DR: Keturah Aguilar HISTORIC SITES SUPERVISOR ? ENTERED: ??02/16/25 ?SP TYPE: Pap Smr ?OTHR DR: ? ORDERED: ??Pap Smear ? Interpretation ?? Satisfactory for evaluation. ?? Negative for intraepithelial lesion or malignancy. ?? Mild inflammation. ? HPV High Risk: ??Negative ? HPV Genotyping 16: ??Negative ?? HPV Genotyping 18: ??Negative ?Clinical Information LMP:Post menopausal Previous PAP test:Unknown date/findings ? Material Received ?? Cervix ----- ------- Signed (signature on file) RIK Phillips (ASCP) 02/22/25 1016 ? ----- ------- ? END OF REPORT ? Keturah Okyanely [facility] CYTOLOGY ORDERABLES Final Result [facility] [address] [place] [phone] * HPV DNA, Low/High Risk (02/15/2025 12:00 AM EDT) HPV High Risk Negative Negative [facility] HPV Genotype 16 Negative Negative [facility] HPV Genotype 18 Negative Negative [facility] Comment:HPV testing performe d at [facility] (CLIA#[id number]), [address] [place] [address].Testing for HPV was performed using the Jeannine NA 6800system. The presence of HPV in the female genital tract isassociated with a number of diseases, including cervicalcarcinoma. The HPV DNA high risk pool tests for HPV 31, 33,35, 39, 45, 51, 52, 56, 58, 59, 66 and 68. The testing forHPV 16 and 18 genotypes has also been performed. A positiveresult indicates detection of nucleic acid sequences fromone or more subtypes, whereas a negative result indicatessuch sequences were not detected. 02/15/2025 02/16/2025 6:0 0 AM EDT [facility] LAB BLOOD ORDERABLES Final Res ult Performing Organization Address [facility] Co de Phone Number [facility] [address] [place] [phone] * Hepatitis C Antibody with Reflex to HCV, RNA, Quantitative, Real-Time PCR (12/26/2024 1:40 PM EST) Pathologist [facility] Hepatitis C Antibody Nonreactive Nonreactive [facility] Comment:Antibodies to HCV no t detected; does not exclude early acuteHCV infection. Blood Venous blood specimen / Unknown 12/26/2024 1:40 PM EST 12/26/2024 4:23 PM EST [facility] LAB BLOOD ORDERABLES Final Res ult Performing Organization Address [facility] Co de Phone Number [facility] [address] [place] [phone] * HIV-1/2 Antigen and Antibodies, Fourth Generation, with Reflexes (12/26/2024 1:40 PM EST) HIV AB/AG Nonreactive Nonreactive [facility] Comment:HIV-1 p24 Ag and/or HIV-1/HIV-2 Ab not detected.A test result that is nonreactive does not exclude thepossibility of exposure to or infection with HIV-1 and/orHIV-2. Nonreactive results in this assay for individualswith prior exposure to HIV-1 and/or HIV-2 may be due toantigen and antibody levels that are below the limit ofdetection of this assay.The [employer] HIV Ag/Ab Combo assay result andsupplemental assay results should be interpreted inconjunction with the patient's clinical presentation,history and other laboratory results. If the results areinconsistent with clinical evidence, additional testing issuggested to confirm the result. Blood Venous blood specimen / Unknown 12/26/2024 1:40 PM EST 12/26/2024 4:23 PM EST us Keturah Aguilar HISTORIC SITES SUPERVISOR LAB BLOOD ORDERABLES Final Res ult [facility] [address] [place] [phone] * BI Mammogram Screening Tomosynthesis Bilateral (03/25/2024 3:41 PM EDT) Anatomical Region Laterality Modality Breast Bilateral Mammography 03/25/2024 3:41 PM EDT Narrative 04/24/2024 5:57 AM EDT ? [facility] ? [address] ?[place] [address] ? Mammography Report ? Signed ? Patient: Josh Altreche,Lesvia ?MR#: ?? [id number] ? : 1965 ?Acct:[id number] ? Age/Sex: 58 / F ?ADM Date: 04/26/24 ? Loc: HO.MAMMO ? Attending : Maris Diaz GAS BLENDER ? Ordering Physician: Maris Diaz GAS BLENDER ?Results: 1Negativ ?? e ? Date of Service: 03/25/24 ?Follow Up: 1 Year From Orig ?? inal Mammogram ? Procedure(s): MM tomosynthesis screening BI ?? Accession Number(s): [id number] ? cc: Maris Diaz GAS BLENDER ? EXAMINATION: ?? MM SCREENING DIGITAL BREAST TOMOSYNTHESIS, BILATERAL ? CLINICAL INFORMATION: ? Screening. Asymptomatic. ? COMPARISON: ?? Mammography: This study is compared with prior exams dating back to ?? 2016. ? TECHNIQUE: ?? Digital breast tomosynthesis is [...] in OV> ? 04/24/24 0553 ? DD/ ? TD/TT: ? Janitorial Assistant: ? Procedure Note Sushma, Arnie - 04/24/2024 [facility] [address] [place] [address] Dr. Dudley, NERIS [address] Mammography Report Signed Patient: Lesvia XieMR#: [id number] : 1965Acct:[id number] Age/Sex: 58 / FADM Date: 03/25/24 Loc: HO.MAMMO Attending Dr: Maris Diaz GAS BLENDER Ordering Physician: Maris Diaz NPResults: 1Negativ e Date of Service: 03/25/24Follow Up: 1 Year From Orig inal Mammogram Procedure(s): MM tomosynthesis screening BI Accession Number(s): [id number] cc: Maris Diaz NP EXAMINATION: MM SCREENING [...] in OV> 04/24/24 0553 DD/ 1541 TD/TT: Janitorial Assistant: Maris Diaz HISTORIC SITES SUPERVISOR IMG BI PROCEDURES Final Result from Last 3 Months or Most Recently Relevant to Health Maintenance Insurance [facility] C3 HSN FULL DENTAL-[facility] MEDICAID STAND ADULT Care Teams Sanitation Tank Washer Relationship Specialty Start Date End Date Keturah Aguilar FNP [address] [place] [address] PCP - General Family Medicine 09/29/24
--- OUTSIDE RECORDS SUMMARY | 2025-03-27 17:41 | XMS_ITS | Patient Health Record ---
Author Organization [facility] Address [address] [facility] [address] [place] [address] Support Name Relationship Address Phone VIRI, Lesvia Guarantor Unknown [phone] Allergies Allergen (clinical drug ingredient) Drug/Non Drug [...] Notes Problem Migraine variant with headache (disorder) (782155115) Migraine headache (G43.901) Active confirmed Problem 150899097 BMI 30.0-30.9,adult (Z68.30) Active confirmed Problem 2907404 Migraine with aura and without status migrainosus, not intractable (G43.109) Active confirmed Problem 655460301 Abnormal mammogram of both breasts (R92.8) Active [...] Coverage End Date Blue Cross and Blue [facility] [address] [place] [phone] [id number] Lesvia MEREDITH Self - patient is the insured Medical (General) History Medical History History ICD Code Migraine headache G43.901 Hospitalization History Reason Date(Month/Year) Tip--cellulitis caused by bug bite 12/18
--- OUTSIDE RECORDS SUMMARY | 2025-03-27 17:41 | XMS_ITS | Patient Health Record ---
Author Organization [facility] Billing Info Address [address] [place], [place] [id number] Care Team Providers Care Investment Counselor Name Role Phone NILESH YBARRA [phone] Allergies Allergen (clinical drug ingredient) Drug/Non Drug [...]
== END 2025-03-27 14:52 | disposition home or self-care (01) ==
LOC: HO.MAMMO 14:51
PROVIDERS: Visit Provider Nurse Practitioner Family
DX: Z12.31 Encounter for screening mammogram for malignant neoplasm of breast (principal)
CPT/HCPCS: 77063; 77067

== ENCOUNTER → 2025-03-27 15:00 | Outpatient (BNV) | payer MEDICAID, SELFPAY | PROVIDERS: Visit Provider Internal Medicine | DX: Z12.31 Encounter for screening mammogram for malignant neoplasm of breast (principal) | CPT/HCPCS: 77063; 77067 ==

== ENCOUNTER 2025-05-10 14:22 | Outpatient (AMB) | payer MEDICAID, SELFPAY ==
--- NOTE | 2025-05-10 14:58 | A.OFFVIS_ITS ---
Intake Visit Reasons: Pre-Rt CTR, Rt Thumb Trigger Intake Note: Lesvia is a 59 year old right hand dominant female who presents today for a pre operative visit to discuss a right carpal tunnel release and right thumb trigger release scheduled with Dr Spence for 05/18/25. Allergies hydrocortisone Allergy (Verified 05/10/25 14:59) Rash HPI HPI Pre-Rt CTR, Rt Thumb Trigger: Details: Lesvia is a 59 year old right hand dominant female who presents today for a pre operative visit to discuss a right carpal tunnel release and right thumb trigger release scheduled with Dr Spence for 05/18/25. Patient states her symptoms have remained consistent from previous evaluation. No other acute complaints or concerns at this time. 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 Good APB muscle firing and good finger cross. Vascular: Capillary refill brisk. ROM: Patient can make a fist and extend all their digits. There is visible and palpable locking and catching of the right thumb Skin: No lacerations or abrasions noted. General: No ecchymosis. No erythema or evidence of infection. Results Reviewed Results Reviewed: IMPRESSION: 1. This is an abnormal study. 2. There is electrodiagnostic evidence for right mild median neuropathy at the wrist, consistent with carpal tunnel syndrome. 3. There is no electrodiagnostic evidence for ulnar neuropathy, brachial plexopa thy, or cervical radiculopathy. Thank you for your kind referral. Ofelia Lopez MD, ISABEL Assessment & Plan Assessment & Plan (1) Trigger thumb, right thumb: Code(s): M65.311 - Trigger thumb, right thumb Category: Medical (2) Right carpal tunnel syndrome: Code(s): G56.01 - Carpal tunnel syndrome, right upper limb Category: Medical Plan 1. Carpal tunnel syndrome, right 2. Right trigger thumb I educated the patient about the condition. I discussed both operative and nonoperative treatment options. The patient would like to proceed with surgery. The risks and benefits of operative treatment were discussed with the patient and the patient wishes to proceed with surgery. These risks include, but are not limited to, risk of damage to blood vessels, nerves, tendons, infection, recurrence, incomplete relief of preoperative symptoms, persistent pain, possible need for further surgery, and the risks associated with regional blocks and/or anesthesia. Plan is to take the patient to the operating room at some point in the next few weeks for the following procedures: 1. Right trigger thumb release under local 2. Right carpal tunnel release under local All of the preoperative paperwork including the consent was discussed today. All of the patient's questions were answered in the clinic today. The patient understands that they will be in contact with our surgical consultant to discuss scheduling their procedure. Patient denies diabetes, blood thinners, asthma, heart issues, lung issues, kidney issues, or current smoking. Coding Level of Care Code Est Pt Level 4 (71132) Diagnoses Trigger thumb, right thumb M65.311 Right carpal tunnel syndrome G56.01
== END 2025-05-10 15:05 | disposition home or self-care (01) ==
LOC: HO.HOS 14:23
PROVIDERS: PCP Nurse Practitioner Family
DX: M65.311 Trigger thumb, right thumb (principal); G56.01 Carpal tunnel syndrome, right upper limb
CPT/HCPCS: 99024

== ENCOUNTER → 2025-05-10 14:22 | Outpatient (BNVA) | payer MEDICAID, SELFPAY | PROVIDERS: PCP Nurse Practitioner Family | DX: M65.311 Trigger thumb, right thumb (principal); G56.01 Carpal tunnel syndrome, right upper limb | CPT/HCPCS: 99212 ==

== ENCOUNTER 2025-05-18 08:04 | Day surgery (SDC) | payer MEDICAID, SELFPAY ==
[2025-05-18 08:44] VITALS: BMI 27.7
--- NOTE | 2025-05-18 09:10 | MHC.SHP ---
Pre-Procedural Eval Section A - 24 Hr Update-Section A only Date of Service: 05/18/25 The patient is an INPATIENT: No Changes since office visit: No Cold of Flu in the past 2 weeks, No New Medical Problems, No Changes in Medication and No Patient answered all questions Section B - Complete if H&P > 30 days Chief Complaint: carpal tunnel,thumb trigger release Allergies: Allergies Allergy/AdvReac Type Severity Reaction Status Date / Time hydrocortisone Allergy Rash Verified 05/10/25 14:59 Plan Diagnosis/Plan: Unchanged I have reviewed the history and physical and performed a pertinent physical examination on my patient. No changes have occurred unless specified. Time Spent With Patient Time: Total time managing care of this patient today ____ minutes.
--- NOTE | 2025-05-18 09:12 | W.PM.OPN ---
Operative Note Operative Note Date of Service: 05/18/25 Narrative: Preop diagnosis: 1. Right Carpal tunnel syndrome 2. Right trigger thumb Postop diagnosis: same Procedure: 1. Right Carpal tunnel release 2. Right trigger thumb release Surgeon: Faviola Spence MD Fleet Assistant: Chai MARQUEZ Anesthesia: local block using 1% lidocaine with epinephrine Findings: Thickened transverse carpal ligament. EBL: Less than 5 mL Specimens: None Complications: None Disposition: Brought to recovery room in stable condition Plan: Follow-up for 10-14 days for wound check and suture removal Indications: The patient is 59 years old, with a right trigger thumb and right carpal tunnel syndrome that have been unresponsive to nonoperative management. The risks and benefits of operative treatment including but not limited to risk of damage to blood vessels, nerves, tendons, infection, persistent pain, persistent symptoms, or possible need for additional surgery were discussed with the patient and the patient wishes to proceed with surgery. Procedure: Once consent was obtained a local block was performed using a combination of 1% lidocaine with epinephrine. The patient was then brought back to the operating suite and placed on the operative table in supine position. The right upper extremity was prepped and draped in a standard surgical fashion. Once assured that we had a good block, a 1.5 cm oblique incision was made centered over the A1 deborah of the right thumb . The incision was made through the skin to the subcutaneous tissues using a #15 blade. Careful dissection was made down to the level of the A1 deborah using tenotomy scissors, with care being taken to protect the nearby neurovascular structures. A longitudinal incision was made in the A1 deborah 1st using a #15 blade, then using tenotomy scissors under direct visualization. The A1 deborah was noted to be thickened. Following our A1 deborah release, we no longer saw any locking or catching of the digit with flexion and extension. Once assured that we had a good block, a 2.0 cm longitudinal incision was made centered over the carpal tunnel. The incision was made through the skin to the subcutaneous tissues using a #15 blade. Dissection was made down to the level of the transverse carpal ligament with care being taken to protect the palmar cutaneous nerve. Once the transverse carpal ligament was clearly visualized, a longitudinal incision was made in the transverse carpal ligament 1st using a #15 blade, then using tenotomy scissors under direct visualization. Care was taken to look for and protect the motor branch of the median nerve when seen in this area. Once satisfied with our carpal tunnel release the wound was copiously irrigated with normal saline and hemostasis was obtained with a brief period of local pressure. The skin edges were reapproximated with some 5.0 nylon suture material and a sterile dressing was applied. The patient appears to have tolerated the procedure well and with no complications. All digits were well vascularized at the conclusion of the case.
[2025-05-18 09:15] VITALS: BP 115/70; PULSE 76; RESP 18; TEMP 36.6; O2SAT 99
[2025-05-18 11:09] VITALS: BP 128/66; PULSE 68; RESP 18
--- NOTE | 2025-05-18 11:10 | W.PM.OPN ---
Operative Note Operative Note Date of Service: 05/18/25 Narrative: Preop diagnosis: 1. Right Carpal tunnel syndrome Postop diagnosis: same Procedure: 1. Right Carpal tunnel release Surgeon: Faviola Spence MD Social Contact Worker: None Anesthesia: local block using 1% lidocaine with epinephrine Findings: Thickened transverse carpal ligament. EBL: Less than 5 mL Specimens: None Complications: None Disposition: Brought to recovery room in stable condition Plan: Follow-up for 10-14 days for wound check and suture removal Indications: The patient is 59 years old, with right carpal tunnel syndrome that has been unresponsive to nonoperative management. The risks and benefits of operative treatment including but not limited to risk of damage to blood vessels, nerves, tendons, infection, persistent pain, persistent symptoms, or possible need for additional surgery were discussed with the patient and the patient wishes to proceed with surgery. Procedure: Once consent was obtained a local block was performed using a combination of 1% lidocaine with epinephrine. The patient was then brought back to the operating suite and placed on the operative table in supine position. The right upper extremity was prepped and draped in a standard surgical fashion. Once assured that we had a good block, a 2.0 cm longitudinal incision was made centered over the carpal tunnel. The incision was made through the skin to the subcutaneous tissues using a #15 blade. Dissection was made down to the level of the transverse carpal ligament with care being taken to protect the palmar cutaneous nerve. Once the transverse carpal ligament was clearly visualized, a longitudinal incision was made in the transverse carpal ligament 1st using a #15 blade, then using tenotomy scissors under direct visualization. Care was taken to look for and protect the motor branch of the median nerve when seen in this area. Once satisfied with our carpal tunnel release the wound was copiously irrigated with normal saline and hemostasis was obtained with a brief period of local pressure. The skin edges were reapproximated with some 5.0 nylon suture material and a sterile dressing was applied. The patient appears to have tolerated the procedure well and with no complications. All digits were well vascularized at the conclusion of the case.
== END 2025-05-18 11:07 | disposition home or self-care (01) ==
PROVIDERS: PCP Nurse Practitioner Family; Visit Provider Orthopaedic Surgery
PROC: (CPT 64721; principal; 2025-05-18 10:00)
PROC: (CPT 26055; 2025-05-18 10:00)
DX: G56.01 Carpal tunnel syndrome, right upper limb (principal); M65.311 Trigger thumb, right thumb; R76.0 Raised antibody titer; L50.1 Idiopathic urticaria; Z88.8 Allergy status to other drugs, medicaments and biological substances
CPT/HCPCS: 64721; 26055; J0171; J2003; J2004

== ENCOUNTER → 2025-05-18 08:04 | Outpatient (BNV) | payer MEDICAID, SELFPAY | PROVIDERS: PCP Nurse Practitioner Family; Visit Provider Orthopaedic Surgery | DX: G56.01 Carpal tunnel syndrome, right upper limb (principal); M65.311 Trigger thumb, right thumb | CPT/HCPCS: 26055; 64721 ==

== ENCOUNTER 2025-05-31 14:27 | Outpatient (AMB) | payer MEDICAID, SELFPAY ==
--- NOTE | 2025-05-31 14:55 | A.OFFVIS_ITS ---
Intake Visit Reasons: PO-Rt CTR, Rt Thumb Trigger 05/18/25 Intake Note: Lesvia is a 59 year old right hand dominant female who presents today for a post operative visit status post right carpal tunnel release and right trigger thumb release, DOS: 05/18/25, by Dr Faviola Spence. Sutures removed and steri strips applied. Patient reports as of now she is no longer having numbness or tingling. Expresses her thumb has not locked but due to swelling and pain she has not been able to notice if this has truly resolved. Allergies hydrocortisone Allergy (Verified 05/10/25 14:59) Rash HPI HPI PO-Rt CTR, Rt Thumb Trigger 05/18/25: Details: Lesvia is a 59 year old right hand dominant female who presents today for a post operative visit status post right carpal tunnel release and right trigger thumb release, DOS: 05/18/25, by Dr Faviola Spence. Sutures removed and steri strips applied. Patient reports as of now she is no longer having numbness or tingling. Expresses her thumb has not locked but due to swelling and pain she has not been able to notice if this has truly resolved. Reports she is experiencing some redness at the base of the thumb. 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 Good APB muscle firing and good finger cross. Vascular: Capillary refill brisk. ROM: Patient can make a fist and extend all their digits. No further locking and catching of the right thumb Skin: Well approximated and well healing No lacerations or abrasions noted. General: No ecchymosis. No erythema or evidence of infection. Assessment & Plan Assessment & Plan (1) Right carpal tunnel syndrome: Code(s): G56.01 - Carpal tunnel syndrome, right upper limb Category: Medical (2) Trigger thumb, right thumb: Code(s): M65.311 - Trigger thumb, right thumb Category: Medical Plan 1. Status post left trigger thumb Status post right carpal tunnel release DOS 05/18/2025 Patient appears to be recovering fairly well postoperatively Patient is educated about the typical recovery course At this time, out of an abundance of caution, a one-week course of Augmentin as prescribed for the patient to attempts to resolve any early infection that might be starting Sutures removed, steroids applied Follow-up in 1 week for wound check, sooner with any acute concerns Medications: New amoxicillin-pot clavulanate 875-125 mg 1 tab PO BID 14 tabs 0RF 7 days Coding Level of Care Code Global (69781) Diagnoses Right carpal tunnel syndrome G56.01 Trigger thumb, right thumb M65.311
--- OUTSIDE RECORDS SUMMARY | 2025-05-31 14:58 | XMS_ITS | Patient Health Record ---
Author Organization [facility] Address [address] [phone] Support Name Relationship Address Phone VIRI Lesvia Guarantor Unknown [phone] Allergies Allergen (clinical drug ingredient) Drug/Non Drug Allergy documented on EMR Reaction Allergy Type Onset Date Status acetaminophen / hydrocodone Hydrocodone-Acetamino phen rash Drug Allergy Active Reason For Referral No Information Medications Medication SIG (Take, Route, Frequency, Duration) Notes Start Date End Date Status Imitrex 25 MG 1 tablet at least 2 hours between doses as needed Orally Twice a day; Duration: 30 days Active Social History Tobacco Use: [...] Notes Problem Migraine variant with headache (disorder) (422057825) Migraine headache (G43.901) Active confirmed Problem Body mass index 30+ - obesity (606790756) BMI 30.0-30.9,adult (Z68.30) Active confirmed Problem Migraine with aura (7974221) Migraine with aura and without status migrainosus, not intractable (G43.109) Active confirmed Problem Abnormal findings on diagnostic imaging of breast (776745777) Abnormal mammogram of both breasts (R92.8) Active [...] Coverage Start Date Coverage End Date [employer] [facility] [address] [place] [phone] [id number] Lesvia MEREDITH Self - patient is the insured Medical (General) History Medical History History ICD Code Migraine headache G43.901 Hospitalization History Reason Date(Month/Year) Tip--cellulitis caused by bug bite 12/18
--- OUTSIDE RECORDS SUMMARY | 2025-05-31 14:59 | XMS_ITS | Data Portability ---
Author Organization [place] - [facility], [facility], [facility] Address [address] [place] [address] Assessment No assessment recorded. Plan of Treatment Reminders Order Date Submit Date Provider Last Modified By Organization Details Last Modified Time Details Appointments None recorded. Lab erythrocyte sedimentati on rate by westergren method 2022 023 [facility], [address], [place], [address], 3 19:22:29 C-reactive protein, quantitativ e, serum or plasma 2022 023 [facility], [address], [place], [address], 3 19:22:28 Referral None recorded. Procedures None recorded. Surgeries None recorded. Imaging XR, finger(s) 2022 023 [email or web address] [facility], [facility], All Locations, [place], [address], 4 12:03:53 MRI, brain, w/o contrast - MRI brain WO; headaches 2022 023 [facility], [facility], All Locations, [place], [address], 3 12:09:26 Medication Orders ketoconazol e 2 % topical cream 2022 023 [id number], [address], [place], [place], [id number], 3 18:55:36 cetirizine 10 mg tablet 2022 023 [facility] #49685, [address], [place], [place], [id number], 3 14:31:54 montelukast 10 mg tablet 2022 023 [facility] #56439, [address], [place], [place], [id number], 3 14:31:51 terbinafine HCl 250 mg tablet 2022 023 [facility] #67712, [address] [place], [place], [id number], 3 15:47:43 ketoconazol e 2 % topical cream 2022 023 [facility] #97252, [address], [place], [id number], 3 15:47:44 prednisone 10 mg tablet 2022 023 [facility] #76965, [address], [place], [place], [id number], 3 15:12:49 nortriptyli ne 25 mg capsule 2022 023 [facility] #56196, [address], [place], [place], [id number], 3 09:22:27 rizatriptan 10 mg tablet 2022 023 [facility] #[id number], [address], [place], [place], [id number], 09:22:27 Patient TargetsNo targets recorded. Patient Instructions Encounter Date Encounter Id Patient Instructions Last Modified By Organization Details Last Modified Time 03/09/2023 [id number] This note was completed using [employer] speech recognition software. Grammatical errors, random word [...] care. [email or web address] Not available 03/09/2023 09:02:24 08/10/2023 [id number] mamograf a: sobre esta prueba - [mammogram: about this test] oruano Not available 08/10/2023 15:14:49 starting a weigh t loss plan: care instructions oruano Not available 08/10/2023 15:14:49 Anticipatory Guidance for preventive visits oruano Not available 08/10/2023 15:14:49 call me if not better in few days. Risk, benefits and side effect of medication DW pt, all questions answered. oruano Not available 08/10/2023 15:07:34 08/27/2023 [id number] call me if not better in few days. Risk, benefits and side effect of medication DW pt, all questions answered. oruano Not available 08/27/2023 15:46:36 09/03/2023 [id number] urticaria: instrucciones de cuidado - [hives: care instructions] Not available 09/03/2023 14:31:28 Reason for Referral [...] e infla mmati on >10 prashant us proc ess is occur ing. Not Available [facility] [address], [place], [address], 03/10/2023 19:22:27 03/10/20 23 03/10/2023 SED RATE, WESTE RGREN sed rate, westergren_V 16 mm/HR 0-30 Not Available [facility] [address], [place], [address], 03/10/2023 19:22:28 03/10/20 23 03/10/2023 VENIP UNCTU RE results Compl ete Not Available [facility] [address], [place], [address], 03/10/2023 14:23:22 03/17/20 23 03/17/2023 MRI, brain [...] By: Vini Preciado James Sign Date: [id number] [facility] All Locations, [place], [address], 10/21/2024 19:44:12 05/07/2005/07/2023 US, pelvi s, trans [...] de leon D.O., Paul Sign Date: [id number] [facility] All Locations, [place], [address], 10/21/2024 19:42:18 06/04/20 23 05/22/2023 MAMMO , [...] ed of these findin gs as per [place] law. BI-RAD S catego ry: 2: Benign findin gs RECOMM ENDATI ONS: Annual screen ing mammog belgica. Notes: -The patien t's council fibrog landul ar tissue can obscur e [...] By: Navjot Mendoza Michae l Sign Date: [id number] [facility] All Locations, [place], [address], 10/21/2024 19:46:20 Result Notes Documentation Provider Name and Address Organization Details Recorded Time Mri, Brain, W/o Contrast : INDICATION: G43.709 Chronic migraine w/o aura, not intractable, w/o stat migr. TECHNIQUE: MRI BRAIN WITHOUT CONTRAST. was intravenously administered. Multiplanar multisequence exam. COMPARISON: None FINDINGS: There is no evidence of hemorrhage or acute infarct. Minimal periventricular hyperintensity small focal area 3 mm within the superficial white matter right frontal lobe presumably reflects trace microscopic ischemic type change likewise 1 mm focus of similar location on the left. No significant atrophy. There is no mass, there is no mass effect. There is no midline shift. There is no enhancing mass. The major intracranial arterial flow voids appear maintained. Assessment of the osseous structures is limited with MRI but there are no gross abnormalities Incidental note is made of bilateral henrry bullosa involving the middle turbinates and minimal opacification of the ethmoid air cells. IMPRESSION: Trace microvascular ischemic change. Electronically Signed By: Vini Preciado James Sign Date: 17-MAR-23 Not Available [facility] 10/21/2024 20:05:37 Mammo, Screening, Tomosynthesis, Bilateral : INDICATION: Female 57 years - Screening mammogram. TECHNIQUE: SCREENING 3D BILATERAL MAMMOGRAM WITH TOMOSYNTHESIS Bilateral CC and MLO views of the breasts were obtained. Digital breast tomosynthesis was performed in the CC and MLO planes. Computer aided detection software was utilized. COMPARISON: February 09, 2021. MAMMOGRAM FINDINGS: The breast parenchyma is category C: Heterogeneously dense Benign-appearing calcifications bilaterally. There is no suspicious asymmetry. There is no architectural distortion. There are no suspicious microcalcifications. No abnormal skin thickening is noted. The nipples are not retracted. IMPRESSION: No mammographic evidence for breast malignancy. The patient will be notified of these findings as per [place] law. BI-RADS category: 2: Benign findings RECOMMENDATIONS: Annual screening mammogram. Notes: -The patient's council fibroglandular tissue can obscure an underlying cancer on a mammogram. Up to 10% of breast cancers are not visible in mammographically fatty breasts and up to 35% of breast cancers are not visible in mammographically dense breasts. -Supplemental annual breast screening ultrasound may be beneficial for the detection of breast cancer in patients with mammographically dense breasts. -Patients with a greater than 20% lifetime risk of breast cancer qualify for screening with breast MRI -Mammography should be supplemented by routine clinical and monthly self exams. A negative mammogram result should not deter biopsy of a clinically suspicious lesion. Electronically Signed By: Navjot Mendoza Michael Sign Date: 04-JUN-23 Not Available [facility] 10/21/2024 20:06:46 Problems Name Problem SNOMED Code Status Onset Date Resolution Date Notes Provider Name and Address Organization Details Recorded Time Onychomycosis 638981340 Active 2021 MD Angelica Peterson [address], [place], [address], [facility], [facility] 14:33:06 Menopausal symptom 01633575 Active 2021 MD Angelica Peterson [address], [place], [address], [facility], [facility] 14:33:43 Migraine 40804092 Active 2021 MD Angelica Peterson [address], [place], [address], [facility], [facility] 14:33:46 Hyperlipidemia 30755786 Active 2021 MD [address]ica Peterson [address], [place], [address], [facility], [facility] 15:04:42 Problem Notes None recorded. Procedures Surgical History Date Name Laterality Status Provider Name and Address Organization Details Recorded Time 3 Date of Last Mammogram completed [facility] [employer], [facility] 08/10/2023 14:19:53 3 Mammogram Screening completed [facility] 08/10/2023 14:19:46 3 Breast/Pelvic/P ap - Medicare [id number]/Q0091 completed JOY HILARIO APRN [address], [place], [address], [facility], [facility] 01/29/2023 10:19:30 2 Walk-In Basic Visit completed Chato Arreguin MD [address], [place], [address], [facility], [facility] 07/23/2022 17:44:48 0 [facility] 03/05/2022 14:15:47 8 Colonoscopy completed Ana Fleiz MD [address], [place], [address], [facility], [facility] 01/15/2023 12:54:13 3 Hernia Repair [facility] 03/05/2022 14:17:00 Imaging Results None recorded. Procedure Notes None recorded. Medical Equipment None Reported. Allergies No known drug allergies Medications Name Sig Start Date Stop Date Status Note LastModified by Organization Details LastModified Time prednisone 10 mg tablet 40mg po qd x 3 [id number] po qd x 3 [id number] po qd x 3 [id number] po qd x 3 day 08/24 completed Not Available Not Available Not Available atorvastati n 20 mg tablet Take 1 tablet every day by oral route for 90 days. 01/15 completed Not Available Not Available Not Available cetirizine 10 mg tablet Take 1 tablet every day by oral route for 30 days. 2022 active Not Available Not Available Not Avai lable atorvastati n 10 mg tablet Take 1 tablet every day by oral route for 90 days. 11/19 completed Not Available Not Available Not Available sumatriptan 25 mg tablet TAKE ONE TABLET [...] completed Not Available Not Available Not Available butalbital- acetaminoph en-caffeine 50 mg-325 mg-40 mg tablet Take 1 tablet every 6 hours by oral route as needed. 08/07 completed Not Available Not Available Not [...] 3 165.1 cm 19 /min 29.6 kg/m2 83208.4 4 g 98 [degF] 88 /min 98 % 98 % 112 mm[Hg] 78 mm[Hg] Vince Knight [facility], [facility] 3 08:45:36 Date Recorded Body height Body mass index (BMI) Body weight Heart rate Respiratory rate Oxygen saturation Oxygen saturation in Arterial blood by Pulse oximetry Systolic blood pressure Diastolic blood pressure Provider Name and Address Organization Details Last Updated DateTime 3 165.1 cm 29.8 kg/m2 91569.0 3 g 81 /min 18 /min 99 % 99 % 128 mm[Hg] 72 mm[Hg] Prema Parkeragijoesph [facility], [facility] 3 14:24:06 Date Recorded Body height Body mass index (BMI) Body weight Heart rate Respiratory rate Oxygen saturation Oxygen saturation in Arterial blood by Pulse oximetry Systolic blood pressure Diastolic blood pressure Provider Name and Address Organization Details Last Updated DateTime 3 165.1 cm 29.6 kg/m2 15631.4 4 g 85 /min 18 /min 98 % 98 % 120 mm[Hg] 72 mm[Hg] Prema Parkeragijoseph [facility], [facility] 3 15:15:52 Date Recorded Body height Body mass index (BMI) Body weight Heart rate Respiratory rate Oxygen saturation Oxygen saturation in Arterial blood by Pulse oximetry Systolic blood pressure Diastolic blood pressure Provider Name and Address Organization Details Last Updated DateTime 3 165.1 cm 29.6 kg/m2 09119.4 4 g 83 /min 18 /min 98 % 98 % 128 mm[Hg] 62 mm[Hg] Prema Parkeragioli [facility], [facility] 3 15:31:05 Date Recorded Body height Body mass index (BMI) Body weight Heart rate Respiratory rate Oxygen saturation Oxygen saturation in Arterial blood by Pulse oximetry Systolic blood pressure Diastolic blood pressure Provider Name and Address Organization Details Last Updated DateTime 3 165.1 cm 29.3 kg/m2 16160.2 6 g 76 /min 18 /min 98 % 98 % 120 mm[Hg] 70 mm[Hg] Fausto Nguyen [facility], [employer] 14:12:54 Social History Question Answer Notes LastModified by Organizat ion Details LastModified Time Tobacco Smoking Status Never Smoker Serene Mccullough AmNANCY cruz - [facility], [employer] 03/05/2022 14:14:10 Do You Have An Advance Directive? No Information n ot available 01/29/2023 Is Blood Transfusion Acceptable In An Emergency? [...] For COVID-19? No Information not available 07/23/2022 What Type Of Diet Are You Following? REGULAR Information n ot available 03/05/2022 Which Of Your Hands Is Dominant? Right Information n ot available 01/29/2023 Alcohol Use No Informati on not available 03/05/2022 Do You Smoke? No Informa tion not available 03/05/2022 Year Quit Tobacco Use NA Information not available 07/23/2022 Do You Have A Medical Power Of Claims Administrator? No Information not available 01/29/2023 What Was [...] Sexually Active? Yes Information not available 03/05/2022 Has Tobacco Cessation Counseling Been Provided? No Information not available 03/05/2022 Do You Have Any Dietary Restrictions? No Information not available 01/28/2023 Sex: Female Functional Status Question Answer Note LastModified by Organizat ion Details LastModified Time Do you use any illicit or recreational drugs? No Information not available 03/05/2022 Do you or have you ever used any other forms of tobacco or nicotine? No Information not available 07/23/2022 What is your level of alcohol consumption? None Information not available 03/05/2022 Are you currently employed? Yes Information not available 03/05/2022 Do you have transportation difficulties? No Information not available 01/28/2023 Are you able to care for yourself? 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 Occasional Information [...] quadrivalent, PF 08/07/2022 completed Ana Feliz MD [address], [place], [address], [facility] - [facility], [facility] 08/07/2022 15:47:40 COVID-19, mRNA, LNP-S, PF, 100 mcg/0.5mL dose or 50 mcg/0.25mL dose 03/29/2021 completed Not Available [employer] 11:35:12 COVID-19, mRNA, LNP-S, PF, 100 mcg/0.5mL dose or 50 mcg/0.25mL dose 04/19/2021 completed Not Available [facility] 3 11:35:12 COVID-19, mRNA, LNP-S, PF, 100 mcg/0.5mL dose or 50 mcg/0.25mL dose 10/31/2021 completed Not Available [facility] 3 11:35:12 COVID-19, mRNA, LNP-S, PF, 30 mcg/0.3 mL dose 03/29/2021 completed Svitlana santos [facility] 07/23/2022 16:58:25 COVID-19, mRNA, LNP-S, PF, 30 mcg/0.3 mL dose 10/31/2021 completed Svitlana santos [facility] 07/23/2022 16:58:25 COVID-19, mRNA, LNP-S, PF, 30 mcg/0.3 mL dose 04/19/2021 completed Svitlana santos [facility] 07/23/2022 16:58:25 COVID-19, mRNA, LNP-S, bivalent, PF, 30 mcg/0.3 mL dose 10/27/2022 completed Fausto Nguyen [facility] 11/19/2022 08:49:25 Past Encounters Encounter ID Performer Location Encounter Start Date Encounter Closed Date Diagnosis/Indication Diagnosis SNOMED-CT Code Diagnosis ICD10 Code Diagnosis Note [id number] [facility] [address] [facility] [address] [place] [address] 03/05/2022 13:51:57 03/05/2022 14:36:25 Migraine 16297517 G43.909 Does OK with PRN Advail Migrainere educated on dxeducated on Onychomycosis 998018963 B35.1 Left big toeEducate d on diagnosis as well as potential complicati ons/conseq uences if untreatedT reatment options discussed as well.Topic al treatment as below recommende d and patient agree Menopausal symptom 23837 002 N95.1 Educated on diff diagnosis as well as potential treatment. monitor recommende d and patient agree Anti-nucle ar factor detected 227007860 R76.8 positive on 2020had Skin changes at that timeshe was refer to Rheumatolo gist by Dr Bal but did not go.she decline to go to any specialist at this time [id number] Chato Arreguin MD [facility] [address] [place] [address] 07/23/2022 16:27:14 07/23/2022 17:53:34 Headache 99139265 R51.9 [id number] Ana Feliz MD [facility] [address] [place] [address] 08/07/2022 14:30:49 08/07/2022 15:14:54 Hyperlipidemia 11302333 E78.2 New DxEducated on diagnosis as well as potential complicati ons/conseq uences if untreatedT reatment options discussed as well.Treat ment Atorvastat in 10mg po qd recommende d and patient agree Calcificat ion of basal ganglia 9279355185 0119187 G23.8 new finding on CTEducated on diff diagnosis as well as potential consequenc esNeuro consult recommende d and patient agree Migraine 84935128 G43.90 9 worsenchro nicher otc meds are not working any morerefer to neurologis tstart PRN sumatripta n PRN and schedule topamax as below for better control Influenza vaccine needed 7025319488 106 Z23 [id number] [facility] [address] [place] [address] 10/07/2022 15:16:14 10/07/2022 16:36:22 Migraine 82410845 G43.909 Unchangedc hronicher otc meds are not workingshe is not using topamax as indicatedw as refere to neurologis t but nor seen yetContinu es PRN sumatripta n and take topamax as indicated Hyperlipidemia 20817466 E78.2 LDL 136Betteri ncrease Atorvastat in to 20 mg po qd recommende d for better control and patient agreefi labs [id number] Ana Feliz MD [facility] [address] [place] [address] 11/19/2022 08:41:19 11/19/2022 11:26:30 Migraine 94699122 G43.909 Worsenchro nicher otc meds are not workingshe is not using topamax as indicated due to side effects on her Abdomen.wa s refere to neurologis t but nor seen yetDoes not feel well with Sumatripta nhold PRN sumatripta nadd trial of Ubrelvy DW her and recommende d [id number] Ana Feliz MD [facility] [address] [place] [address] 01/15/2023 12:08:37 01/15/2023 13:00:43 Migraine 48531274 G43.909 not betterchro nicher otc meds are not workingshe is not using topamax as indicated due to side effects on her Abdomen.wa s refere to neurologis t but nor seen yetDoes not feel well with Sumatripta nUbrelvy did not workawait Neurologis t consult Screening mammography 24 133820 Z12.31 [id number] JOY HILARIO APRN [facility] [address] [place] [address] 01/29/2023 08:49:59 01/29/2023 10:34:15 Screening mammography 03726128 Z12.31 Pain in pelvis 53138952 R10.2 acuteunkno wn etiologyha ppens during sexI will obtain US pelvicmana gement based on the findings Screening for malignant neoplasm of cervix 935210975 Z12.4 Dyspareunia 39854813 N94 .10 as above Depression screening 171 867241 Z13.31 A Depression screening assessment was conducted during this encounter and all actions of this assessment and time elements up to 15 minutes were met [id number] VINCE RICHARDS DO [facility] [address] [place] [address] 03/09/2023 08:33:06 03/09/2023 09:44:50 Chronic migraine without aura 6899428190 34046 G43.709 Patient complains of increased headache pain [...] some people. Calcificat ion of basal ganglia 5477261570 3747178 G23.[address] brain from 07/24/2022 which [...] in 6 months or sooner if needed. [id number] MD ZULLY Peterson [address] [place] [address] 08/10/2023 14:06:05 08/10/2023 15:20:18 Adult health examination 740929519 Z00.01 Preventive visit done today. Anticipato ry guidance given as noted below.decl ined EKG Increased body mass index 71199080 Z68.29 elevated BMI. Discussed diet and better therapeuti c lifestyle changes. Diet education 10853794 Z71.3 as above Screening for malignant neoplasm of colon 759550142 Z12.11 UP TO DATE Screening mammography 24 588402 Z12.31 UP TO DATE Pruritic rash 31661860 L 28.2 AcuteEduca blane on diagnosis as well as potential complicati ons/conseq uences if untreatedT reatment options discussed as well.Treat ment with Prednisone recommende d and patient agree Vaccine de clined by patient 8815314097 02 Z28.21 [id number] Ana Feliz MD [facility] [address] [place] [address] 08/24/2023 15:08:10 08/24/2023 15:40:27 Pruritic rash 14272403 L28.2 Betters/p treatment with Prednisone monitor recommende d and patient agree Screening for malignant neoplasm of colon 885058278 Z12.11 UP TO DATE Screening mammography 24 498254 Z12.31 UP TO DATE Influenza vaccination declined 480816389 Z28.21 Injury of finger 6614125 8 S69.92XA trauma with home front door 1 week agoeducate d on diff dxevaluate with X rayPRN Tylenol [id number] Ana Feliz MD [facility] [address] [place] [address] 08/27/2023 15:24:43 08/27/2023 15:52:26 Injury of finger 96665637 S69.92XA trauma with home front door 1 week agoeducate d on diff dxshe declined X rayPRN Tylenol Screening for malignant neoplasm of colon 519600662 Z12.11 UP TO DATE Screening mammography 24 641554 Z12.31 UP TO DATE Influenza vaccination declined 247661442 Z28.21 Dermatophytosis 63892985 B35.9 AcuteEduca blane on diagnosis as well as potential consequenc es if untreatedT reatment options discussed as well.Treat ment as below recommende d and patient agree [id number] Tomás Garcia APRN [facility] [address] [place] [address] 09/03/2023 13:47:45 09/03/2023 16:11:32 Pruritic rash 16685055 L28.2 Better s/p treatment finished at prednisone Urticaria 071976364 L50. 9 Patient was seen today for follow-up urticaria, disappear skin lesion, doing well Dermatophytosis 43244844 B35.9 Patient was seen last week for diagnosis dermatophy tosis, treated with terbinafin e, tablet, ketoconazo le topical cream, was seen today stated feeling better, disappear skin lesion doing well. Health Concerns Section Related Observation LastModified by Organization Detai ls LastModified Time None Recorded Concern Status LastModified by Organization Details LastModified Time None Recorded Advance Directives Directive N: Payers Insurance Date Sequence Insurance Name Policy Number Policy Buchanan Covered Member ID Buchanan Member ID Guarantor Name 10/29/2023 1 [employer] (HMO) [id number] 1 Lesvia Josh [id number] Lesvia Josh 10/29/2023 2 [id number] Lesvia Josh Lesvia Josh 09/29/2022 2 *SELF PAY* Bi biana Josh 01/15/2023 1 [place] [id number] Lesvia Josh [id number] Lesvia Josh 10/29/2023 2 [employer] - [facility] (HMO) Lesvia Josh [id number] Lesvia Josh 04/01/2023 1 [employer] (HMO) [id number] 1 Lesvia Josh [id number] Lesvia Josh 05/07/2023 1 [employer] (HMO) [id number] 1 Josh, Lesvia [id number] Lesvia Josh 04/10/2022 1 [place] [id number] Lesvia Josh [id number] Lesvia Josh 06/04/2023 1 [employer] (HMO) [id number] 1 Lesvia Josh [id number] Lesvia Josh 10/29/2023 2 [place] [id number] Lesvia Josh [id number] Lesvia Josh Notes Date Note Type Note [...] since teenage years. She has constant left mu-ism pain which is constant, can range from 5-9/10, sharp pain. She states that she had tried tztn-[id number]-[id number] Tylenol, Advil with no improvement. She has [...] escalations. She states that she has seen arm rest builder over 4 years ago which she states was a normal work-up. VINCE RICHARDS DO [address] [place], [id number], [employer] 03/09/2023 09:23:22 3 text/html Extensive/Preventative ExamReported bypatient.Reason [...] no change in weight QUALITY MEASURE QUESTIONNAIRE Are you a diabetic patient No Has the Patient previously received any type of colorectal cancer screener No Imported from [employer] on 08/10/2023 Ana Feliz MD [address] [place], [id number], [employer] 08/10/2023 15:17:19 3 text/html Acute HPIReported bypatient.Reason for visit:acute complaint Location:index finger Quality:Trauma Onset/Timing:abrupt;1 weeks agoFollow upReported bypatient.Reason for visit:recheck of previous visit Severity:mild Current status:variably controlled Current control and compliance:compliant with regimen Ana Feliz MD [address], [place], [id number], [employer] 08/24/2023 15:40:51 3 text/html RashReported bypatient.Reason for visit:exacerbation of chronic complaint Quality:macular;red;itch y Severity:moderate Duration:constant Context:no new detergents or skin products; no one else with similar rash Alleviating Factors:nothing gives relief Aggravating Factors:nothing makes it worse Associated Symptoms:no cold symptoms; no nausea; no vomiting; no diarrhea; no urinary symptoms; no chills; no fatigue; no change in weight Ana Feliz MD [address], [place], [address], [employer] 08/27/2023 15:50:58 3 text/html Follow upReported bypatient.Reason [...] no change in weight Tomás Garcia APRN [address], [place], [address], [employer], [employer] 09/03/2023 18:59:52 OBGyn Episode No OBEpisode recorded.
--- OUTSIDE RECORDS SUMMARY | 2025-05-31 14:59 | XMS_ITS | Clinical Summary ---
Author Organization [employer] Address [address] [place] [address] Care Team Providers Care Syrup Mixer Assistant Name Role Phone Keturah Aguilar [facility] Primary Care Provider [phone] Allergies Active Allergy Reactions Criticality Noted Date [...] for her- walking at the mall, attending [employer]- she will continue using strategies before seeking out for MH services. clinician engaged patient with active/reflective listening. Reviewed and assessed for risk, current stressors and protective factors using open-ended questions. Explored strategies to utilize in daily routine to decrease her sxs. Pt declined OP referral at this time. Not interested in starting medication. clinician will provide additional support during next medical appointment. Provided [facility] numbers. Sinusitis 09/20/2024 Assessment & [...] Description 05/08/2025 2:30 PM EDT Office Visit [facility] OPTOM[facility] [address] [place], [place] [phone] Jose Juan Nita, OD Cortical cataract of both eyes (Primary Dx); Presbyopia 05/08/2025 Travel 03/14/2025 Telephone [facility] MEDIC[facility] [address], [place] [phone] Keturah Aguilar FNP May Recall from Last 3 Months Immunizations Immunization Administration [...] with others, in a hotel, in a mcc, living outside on the street, on a [...] Tobacco Screening 05/08/2026 05/08/2025 Mammogram 03/27/2027 03/27/2025, /04/2024, 07/22/2019 Cervical Cancer Screening 02/15/2030 HPV/Cotest 02/15/2030 [...] Narrative 04/02/2025 5:53 PM EDT [facility] [address] [place], [place] [address] Mammography Report Signed Patient: Lesvia Xie MR#: [id number] : 1965 Acct:[id number] Age/Sex: 59 / F ADM Date: 03/27/25 Loc: [facility] Attending Dr: Keturah Aguilar SUPERVISING BROKER Ordering Physician: Keturah Aguilar Results: 1Negat erasmo Date of Service: 03/27/25 Follow Up: 1 Year From Orig ina Mammogram Procedure(s): MM tomosynthesis screening BI Accession Number(s): [id number] cc: Keturah Aguilar SUPERVISING BROKER EXAMINATION: MM SCREENING DIGITAL BREAST TOMOSYNTHESIS, BILATERAL [...] OV> 04/02/25 1750 DD/ 1455 TD/TT: 03/27/25 1515 Shovel Handle Assembler: Procedure Note Donotuseinterpreter, Image - 04/02/2025 [facility] [address] [place] [address] Dr[place], [place] [address] Mammography Report Signed Patient: Lesvia XieMR#: [id number] : 1965Acct:[id number] Age/Sex: 59 / FADM Date: 03/27/25 Loc: [facility] Attending Dr: Keturah CUMMINGSP Ordering Physician: Keturah Aguilar FNPResults: 1Negat erasmo Date of Service: 03/27/25Follow Up: 1 Year From Orig ina Mammogram Procedure(s): MM tomosynthesis screening BI Accession Number(s): [id number] cc: Keturah Aguilar EXAMINATION: MM SCREENING DIGITAL BREAST TOMOSYNTHESIS, BILATERAL [...] OV> 04/02/25 1750 DD/ 1455 TD/TT: 03/27/25 1515 Shovel Handle Assembler: Keturah ROBINS IMG BI PROCEDURES Edited Resul t - Final * Pap Smear (02/15/2025 9:30 AM EDT) Swab Cervical swab / Unknown 02/15/2025 9:30 AM EDT 02/16/2025 6:00 AM EDT Zoey [facility] - 02/22/2025 10:16 AM EDT ----- ------- Name: Lesvia Xie Age/Sex: 59/F : 1965 Unit#: [id number] Attend Dr: Re02/15/25 Status: PRE REF Location: [facility] Disch: ----- ------- SPEC : [id number] RECD: 02/16/25 STATUS: FRANDY FARIA NUM: [id number] ESE: 02/15/[address]: Keturah Aguilar SUPERVISING BROKER ENTERED: 02/16/25 SP TYPE: Pap Smr OT DR: ORDERED: Pap Smear Interpretation Satisfactory for evaluation. Negative for intraepithelial lesion or malignancy. Mild inflammation. HPV High Risk: Negative HPV Genotyping 16: Negative HPV Genotyping 18: Negative Clinical Information LMP:Post menopausal Previous PAP test:Unknown date/findings Material Received Cervix ----- ------- Signed (signature on file) Kris Flynn CT (ASCP) 02/22/25 1016 ----- ------- END OF REPORT Keturah Aguilar [facility] CYTOLOGY ORDERABLES Final Result [facility] [address] [place] [phone] * HPV DNA, Low/High Risk (02/15/2025 12:00 AM EDT) Pathologist [facility] HPV High Risk Negative Negative [facility] HPV Genotype 16 Negative Negative [facility] HPV Genotype 18 Negative Negative [facility] Comment:HPV testing performe d at [facility] (CLIA#[id number]), [address] [place] [address].Testing for HPV was performed using the Jeannine [...] detected. 02/15/2025 02/16/2025 6:0 0 AM EDT [facility] LAB BLOOD ORDERABLES Final Res ult Performing Organization Address [facility]/ZIP Co de Phone Number [facility] [address] [place] [phone] * Hepatitis C Antibody with Reflex to HCV, RNA, Quantitative, Real-Time PCR (12/26/2024 1:40 PM EST) Hepatitis C Antibody Nonreactive Nonreactive [facility] Comment:Antibodies to HCV no t detected; does not exclude early acuteHCV infection. Blood Venous blood specimen / Unknown 12/26/2024 1:40 PM EST 12/26/2024 4:23 PM EST [facility] BLOOD ORDERABLES Final Res ult Performing Organization Address [facility] Co de Phone Number [facility] [address] [place] [phone] * HIV-1/2 Antigen and Antibodies, Fourth Generation, with Reflexes (12/26/2024 1:40 PM EST) HIV AB/AG Nonreactive Nonreactive [facility] Comment:HIV-1 p24 Ag and/or HIV-1/HIV-2 Ab not detected.A test result that is nonreactive does not exclude thepossibility of exposure to or infection with HIV-1 and/orHIV-2. Nonreactive results in this assay for individualswith prior exposure to HIV-1 and/or HIV-2 may be due toantigen and antibody levels that are below the limit ofdetection of this assay.The [employer]UN[employer] HIV Ag/Ab Combo assay result andsupplemental assay results should be interpreted inconjunction with the patient's clinical presentation,history and other laboratory results. If the results areinconsistent with clinical evidence, additional testing issuggested to confirm the result. Blood Venous blood specimen / Unknown 12/26/2024 1:40 PM EST 12/26/2024 4:23 PM EST Keturah Aguilar SUPERVISING BROKER LAB BLOOD ORDERABLES Final Res ult [facility] [address] [place] [phone] from Last 3 Months or Most Recently Relevant to Health Maintenance Insurance [facility] C3 [facility] 2 [facility] MEDICAID STAND ADULT Care Teams Syrup Mixer Assistant Relationship Specialty Start Date End Date Keturah Aguilar FNP [address] [place] [phone] PCP - General Family Medicine 09/29/24
== END 2025-05-31 15:09 | disposition home or self-care (01) ==
LOC: HO.HOS 14:28
PROVIDERS: PCP Nurse Practitioner Family
DX: G56.01 Carpal tunnel syndrome, right upper limb (principal); M65.311 Trigger thumb, right thumb
CPT/HCPCS: 99024

== ENCOUNTER → 2025-05-31 14:27 | Outpatient (BNVA) | payer MEDICAID, SELFPAY | PROVIDERS: PCP Nurse Practitioner Family | DX: G56.01 Carpal tunnel syndrome, right upper limb (principal); M65.311 Trigger thumb, right thumb | CPT/HCPCS: 99212 ==

== ENCOUNTER 2025-06-07 14:25 | Outpatient (AMB) | payer MEDICAID, SELFPAY ==
--- NOTE | 2025-06-07 14:30 | MHC.OFFVIS ---
Vital Signs 06/07/25 14:32 Height 5 ft 5 in Weight 166 lb BMI 27.6 Intake Visit Reasons: PO-Rt CTR, Rt Thumb Trigger 05/18/25 wound check Intake Note: Lesvia is a 59 year old right hand dominant female who presents today for a post operative wound check s/p right carpal tunnel release and right trigger thumb release, DOS: 05/18/25. At her last visit she was placed on a course of Abx due to some redness at carpal tunnel incision. Patient reports that she is doing well, her numbness and tingling has resolved, and her ROM is improving. Allergies hydrocortisone Allergy (Verified 05/10/25 14:59) Rash HPI HPI PO-Rt CTR, Rt Thumb Trigger 05/18/25 wound check: Details: Lesvia is a 59 year old right hand dominant female who presents today for a post operative wound check s/p right carpal tunnel release and right trigger thumb release, DOS: 05/18/25. At her last visit she was placed on a course of Abx due to some redness at carpal tunnel incision. Patient reports that she is doing well, her numbness and tingling has resolved, and her ROM is improving. 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 Good APB muscle firing and good finger cross. Vascular: Capillary refill brisk. ROM: Patient can make a fist and extend all their digits. No further locking and catching of the right thumb Skin: Well approximated and well healing No lacerations or abrasions noted. General: No ecchymosis. No erythema or evidence of infection. Assessment & Plan Assessment & Plan (1) Trigger thumb, right thumb: Code(s): M65.311 - Trigger thumb, right thumb Category: Medical (2) Right carpal tunnel syndrome: Code(s): G56.01 - Carpal tunnel syndrome, right upper limb Category: Medical Plan 1. Status post left trigger thumb Status post right carpal tunnel release DOS 05/18/2025 Patient appears to be recovering fairly well postoperatively Patient is educated about the typical recovery course No further antibiotics necessary Sutures removed, steroids applied at last visit Follow-up as needed with any acute concerns Orders: Orders OT Evaluation and Treatment 06/07/25 G56.01 - Carpal tunnel syndrome, right upper limb, M65.311 - Trigger thumb, right thumb Coding Level of Care Code Global (92524) Diagnoses Trigger thumb, right thumb M65.311 Right carpal tunnel syndrome G56.01
[2025-06-07 14:32] VITALS: BMI 27.6
--- OUTSIDE RECORDS SUMMARY | 2025-06-07 15:00 | XMS_ITS | Data Portability ---
Author Organization [place] - [facility] [employer], [facility], [facility] Address [address] [place] [address] Assessment No assessment recorded. Plan of Treatment Reminders Order Date Submit Date Provider Last Modified By Organization Details Last Modified Time Details Appointments None recorded. Lab erythrocyte sedimentati on rate by westergren method 2022 023 [facility], [address], [place], [address], 3 19:22:29 C-reactive protein, quantitativ e, serum or plasma 2022 023 [facility], [address], [place], [address], 3 19:22:28 Referral None recorded. Procedures None recorded. Surgeries None recorded. Imaging XR, finger(s) 2022 023 [email or web address] [facility], [facility], All Locations, [place], [address], 4 12:03:53 MRI, brain, w/o contrast - MRI brain WO; headaches 2022 023 [facility], [facility], All Locations, [place], [address], 3 12:09:26 Medication Orders ketoconazol e 2 % topical cream 2022 023 [facility], [address], [place], [place], [id number], 3 18:55:36 cetirizine 10 mg tablet 2022 023 [facility] #31623, [address], [place], [place], [id number], 3 14:31:54 montelukast 10 mg tablet 2022 023 [facility] #61704, [address], [place], [place], [id number], 3 14:31:51 terbinafine HCl 250 mg tablet 2022 023 [facility] #44892, [address] [place], [place], [id number], 3 15:47:43 ketoconazol e 2 % topical cream 2022 023 [facility] #10726, [address], [place], [place], [id number], 3 15:47:44 prednisone 10 mg tablet 2022 023 [facility] #36750, [address], [place], [place], [id number], 3 15:12:49 nortriptyli ne 25 mg capsule 2022 023 [facility] #91841, [address], [place], [place], [id number], 3 09:22:27 rizatriptan 10 mg tablet 2022 023 [facility] #64261, [address], [place], [place], [id number], 09:22:27 Patient TargetsNo targets recorded. Patient Instructions Encounter Date Encounter Id Patient Instructions Last Modified By Organization Details Last Modified Time 03/09/2023 [id number] This note was completed using [employer] speech recognition software. Grammatical errors, random word [...] care. [email or web address] Not available 03/09/2023 09:02:24 08/10/2023 [id number] mamograf a: sobre esta prueba - [mammogram: [...] answered. [email or web address] Not available 08/10/2023 15:07:34 08/27/2023 [id number] call me if not better in few days. Risk, benefits and side effect of medication DW pt, all questions answered. [email or web address] Not available 08/27/2023 15:46:36 09/03/2023 [id number] urticaria: instrucciones de cuidado - [hives: care instructions] [email or web address] Not available 09/03/2023 14:31:28 Reason for Referral [...] proc ess is occur ing. Not Available [facility] [address], [place], [address], 03/10/2023 19:22:27 03/10/20 23 03/10/2023 SED RATE, WESTE RGREN sed rate, westergren_V 16 mm/HR 0-30 Not Available [facility] [address], [place], [address], 03/10/2023 19:22:28 03/10/20 23 03/10/2023 VENIP UNCTU RE results Compl ete Not Available [facility] [address], [place], [address], 03/10/2023 14:23:22 03/17/20 23 03/17/2023 MRI, brain [...] . Electr onical ly Signed By: Vini Precaido James Sign Date: [id number] [facility] All Locations, [place], [address], 10/21/2024 19:44:12 05/07/2005/07/2023 US, pelvi s, trans [...] de leon D.O., Paul Sign Date: [id number] [facility] All Locations, [place], [address], 10/21/2024 19:42:18 06/04/20 23 05/22/2023 MAMMO , [...] ed of these findin gs as per LIKECHARITY law. BI-RAD S catego ry: 2: Benign findin gs RECOMM ENDATI ONS: Annual screen ing mammog belgica. Notes: -The patien t's campo fibrog landul ar tissue can obscur e [...] Navjot Mendoza Michae l Sign Date: [id number] [facility] All Locations, [place], [address], 10/21/2024 19:46:20 Result Notes Documentation Provider Name [...] Preciado James Sign Date: 17-MAR-23 Not Available [facility] 10/21/2024 20:05:37 Mammo, Screening, Tomosynthesis, Bilateral [...] be notified of these findings as per [place] law. BI-RADS category: 2: Benign findings RECOMMENDATIONS: Annual screening mammogram. Notes: -The patient's campo fibroglandular tissue can obscure an underlying cancer [...] Mendoza Michael Sign Date: 04-JUN-23 Not Available [facility] 10/21/2024 20:06:46 Problems Name Problem SNOMED Code Status Onset Date Resolution Date Notes Provider Name and Address Organization Details Recorded Time Onychomycosis 359312054 Active 2021 MD Angelica Peterson [address], [place], [address], [facility], [facility] 14:33:06 Menopausal symptom 56214185 Active 2021 MD Angelica Peterson [address], [place], [address], [facility], [facility] 14:33:43 Migraine 57404321 Active 2021 MD Angelica Peterson [address], [place], [address], [facility], [facility] 14:33:46 Hyperlipidemia 49163649 Active 2021 MD Angelica [address], [place], [address], [facility], [facility] 15:04:42 Problem Notes None recorded. Procedures Surgical History Date Name Laterality Status Provider Name and Address Organization Details Recorded Time 3 Date of Last Mammogram completed Prema Brainiac TVneftaly [facility], [facility] 08/10/2023 14:19:53 3 Mammogram Screening completed [facility] 08/10/2023 14:19:46 3 Breast/Pelvic/P ap - Medicare [id number]/Q0091 completed JOY HILARIO APRN [address], [place], [address], [facility], [facility] 01/29/2023 10:19:30 2 Walk-In Basic Visit completed Chato Arreguin MD [address], [place], [address], [facility], [facility] 07/23/2022 17:44:48 0 [facility] 03/05/2022 14:15:47 8 Colonoscopy completed Ana Feliz MD [address], [place], [address], [facility], [facility] 01/15/2023 12:54:13 3 Hernia Repair [facility] 03/05/2022 14:17:00 Imaging Results None recorded. Procedure Notes None recorded. Medical Equipment None Reported. Allergies No known drug allergies Medications Name Sig Start Date Stop Date Status Note LastModified by Organization Details LastModified Time prednisone 10 mg tablet 40mg po qd x 3 [id number] po qd x 3 [id number] po qd x 3 [id number] po qd x 3 day 08/24 completed [...] in Arterial blood by Pulse oximetry Systolic And Diastolic Provider Name and Address Organization Details Last Updated DateTime 3 165.1 cm 19 /min 29.6 kg/m2 72909.4 4 g 98 [degF] 88 /min 98 % 98 % 112/78 mm[Hg] Vince Knight [facility], [facility] 3 08:45:36 Date Recorded Body height Body mass index (BMI) Body weight Heart rate Respiratory rate Oxygen saturation Oxygen saturation in Arterial blood by Pulse oximetry Systolic And Diastolic Provider Name and Address Organization Details Last Updated DateTime 3 165.1 cm 29.8 kg/m2 23405.0 3 g 81 /min 18 /min 99 % 99 % 128/72 mm[Hg] Prema Cotto [facility], [facility] 3 14:24:06 Date Recorded Body height Body mass index (BMI) Body weight Heart rate Respiratory rate Oxygen saturation Oxygen saturation in Arterial blood by Pulse oximetry Systolic And Diastolic Provider Name and Address Organization Details Last Updated DateTime 3 165.1 cm 29.6 kg/m2 57007.4 4 g 85 /min 18 /min 98 % 98 % 120/72 mm[Hg] Prema Cotto [facility], [facility] 3 15:15:52 Date Recorded Body height Body mass index (BMI) Body weight Heart rate Respiratory rate Oxygen saturation Oxygen saturation in Arterial blood by Pulse oximetry Systolic And Diastolic Provider Name and Address Organization Details Last Updated DateTime 3 165.1 cm 29.6 kg/m2 41186.4 4 g 83 /min 18 /min 98 % 98 % 128/62 mm[Hg] Prema Cotto [facility], [facility] 3 15:31:05 Date Recorded Body height Body mass index (BMI) Body weight Heart rate Respiratory rate Oxygen saturation Oxygen saturation in Arterial blood by Pulse oximetry Systolic And Diastolic Provider Name and Address Organization Details Last Updated DateTime 3 165.1 cm 29.3 kg/m2 04554.2 6 g 76 /min 18 /min 98 % 98 % 120/70 mm[Hg] Fausto Nguyen [facility], [facility] 3 14:12:54 Social History Question Answer Notes LastModified by Organizat ion Details LastModified Time Tobacco Smoking Status Never Smoker Serene Mondragon danielle, [place] - [facility], [facility] 03/05/2022 14:14:10 Do You Have An Advance [...] Do You Have A Medical Power Of Gluing Machine Operator Automatic? No Information not available 01/29/2023 What Was [...] quadrivalent, PF 08/07/2022 completed Ana Feliz MD [address] [address], [place], [address], [facility] - [facility], [facility] 08/07/2022 15:47:40 COVID-19, mRNA, LNP-S, PF, 100 mcg/0.5mL dose or 50 mcg/0.25mL dose 03/29/2021 completed Not Available [facility] 3 11:35:12 COVID-19, mRNA, LNP-S, PF, 100 mcg/0.5mL dose or 50 mcg/0.25mL dose 04/19/2021 completed Not Available [facility] 3 11:35:12 COVID-19, mRNA, LNP-S, PF, 100 mcg/0.5mL dose or 50 mcg/0.25mL dose 10/31/2021 completed Not Available [facility] 3 11:35:12 COVID-19, mRNA, LNP-S, PF, 30 mcg/0.3 mL dose 03/29/2021 completed Svitlana Lopez [facility], [facility], [facility] 07/23/2022 16:58:25 COVID-19, mRNA, LNP-S, PF, 30 mcg/0.3 mL dose 10/31/2021 completed Svitlana Lopez null, [facility], [facility] 07/23/2022 16:58:25 COVID-19, mRNA, LNP-S, PF, 30 mcg/0.3 mL dose 04/19/2021 [facility] 07/23/2022 16:58:25 COVID-19, mRNA, LNP-S, bivalent, PF, 30 mcg/0.3 mL dose 10/27/2022 completed Fausto Nguyen [facility], [facility] 11/19/2022 08:49:25 Past Encounters Encounter ID Performer Location Encounter Start Date Encounter Closed Date Diagnosis/Indication Diagnosis SNOMED-CT Code Diagnosis ICD10 Code Diagnosis Note [id number] Ana Feliz MD [facility] [address] [facility] [address] [place] [address] 03/05/2022 13:51:57 03/05/2022 14:36:25 Migraine 52940608 G43.909 Does OK with PRN Advail Migrainere educated on dxeducated on Onychomycosis 470540277 B35.1 Left big toeEducate d on diagnosis as well as potential complicati ons/conseq uences if untreatedT reatment options discussed as well.Topic al treatment as below recommende d and patient agree Menopausal symptom 31089 002 N95.1 Educated on diff diagnosis as well as potential treatment. monitor recommende d and patient agree Anti-nucle ar factor detected 687163280 R76.8 positive on 2020had Skin changes at that timeshe was refer to Rheumatolo gist by Dr Bal but did not go.she decline to go to any specialist at this time [id number] Chato Arreguin MD [facility] [address] [place] [address] 07/23/2022 16:27:14 07/23/2022 17:53:34 Headache 98918920 R51.9 [id number] Ana Feliz MD [facility] [address] [place] [address] 08/07/2022 14:30:49 08/07/2022 15:14:54 Hyperlipidemia 84978325 E78.2 New DxEducated on diagnosis as well as potential complicati ons/conseq uences if untreatedT reatment options discussed as well.Treat ment Atorvastat in 10mg po qd recommende d and patient agree Calcificat ion of basal ganglia 8152825211 3464631 G23.8 new finding on CTEducated on diff diagnosis as well as potential consequenc esNeuro consult recommende d and patient agree Migraine 59985860 G43.90 9 worsenchro nicher otc meds are not working any morerefer to neurologis tstart PRN sumatripta n PRN and schedule topamax as below for better control Influenza vaccine needed 7595731403 106 Z23 [id number] Ana Feliz MD [facility] [address] [place] [address] 10/07/2022 15:16:14 10/07/2022 16:36:22 Migraine 14063483 G43.909 Unchangedc hronicher otc meds are not workingshe is not using topamax as indicatedw as refere to neurologis t but nor seen yetContinu es PRN sumatripta n and take topamax as indicated Hyperlipidemia 58362440 E78.2 LDL 136Betteri ncrease Atorvastat in to 20 mg po qd recommende d for better control and patient agreefi labs [id number] Ana Feliz MD [facility] [address] [place] [address] 11/19/2022 08:41:19 11/19/2022 11:26:30 Migraine 05613698 G43.909 Worsenchro nicher otc meds are not workingshe is not using topamax as indicated due to side effects on her Abdomen.wa s refere to neurologis t but nor seen yetDoes not feel well with Sumatripta nhold PRN sumatripta nadd trial of Ubrelvy DW her and recommende d [id number] Ana Feliz MD [facility] [address] [place] [address] 01/15/2023 12:08:37 01/15/2023 13:00:43 Migraine 34309590 G43.909 not betterchro nicher otc meds are not workingshe is not using topamax as indicated due to side effects on her Abdomen.heri s refere to neurologis t but nor seen yetDoes not feel well with Sumatripta nUbrelvy did not workawait Neurologis t consult Screening mammography 24 932628 Z12.31 [id number] JOY HILARIO APRN [facility] [address] [place] [address] 01/29/2023 08:49:59 01/29/2023 10:34:15 Screening mammography 92386852 Z12.31 Pain in pelvis 59636149 R10.2 acuteunkno wn etiologyha ppens during sexI will obtain US pelvicmana gement based on the findings Screening for malignant neoplasm of cervix 992790644 Z12.4 Dyspareunia 78698451 N94 .10 as above Depression screening 171 398603 Z13.31 A Depression screening assessment was conducted during this encounter and all actions of this assessment and time elements up to 15 minutes were met [id number] VINCE RICHARDS DO [facility] [address] [facility] [address] [place] [address] 03/09/2023 08:33:06 03/09/2023 09:44:50 Chronic migraine without aura 8227508705 95581 G43.709 Patient complains of increased headache pain [...] some people. Calcificat ion of basal ganglia 5132201737 6302858 G23.[address] brain from 07/24/2022 which [...] in 6 months or sooner if needed. [id number] Ana Feliz MD [facility] [address] [place] [address] 08/10/2023 14:06:05 08/10/2023 15:20:18 Adult health examination 791053089 Z00.01 Preventive visit done today. Anticipato ry guidance given as noted below.decl ined EKG Increased body mass index 97161682 Z68.29 elevated BMI. Discussed diet and better therapeuti c lifestyle changes. Diet education 66725984 Z71.3 as above Screening for malignant neoplasm of colon 986745645 Z12.11 UP TO DATE Screening mammography 24 703995 Z12.31 UP TO DATE Pruritic rash 07724883 L 28.2 AcuteEduca blane on diagnosis as well as potential complicati ons/conseq uences if untreatedT reatment options discussed as well.Treat ment with Prednisone recommende d and patient agree Vaccine de clined by patient 9170105472 02 Z28.21 [id number] Ana Feliz MD [facility] [address] [place] [address] 08/24/2023 15:08:10 08/24/2023 15:40:27 Pruritic rash 12499273 L28.2 Betters/p treatment with Prednisone monitor recommende d and patient agree Screening for malignant neoplasm of colon 678518883 Z12.11 UP TO DATE Screening mammography 24 807171 Z12.31 UP TO DATE Influenza vaccination declined 760628794 Z28.21 Injury of finger 7975814 8 S69.92XA trauma with home front door 1 week agoeducate d on diff dxevaluate with X rayPRN Tylenol [id number] Ana Feliz MD [facility] [address] [place] [address] 08/27/2023 15:24:43 08/27/2023 15:52:26 Injury of finger 51683735 S69.92XA trauma with home front door 1 week agoeducate d on diff dxshe declined X rayPRN Tylenol Screening for malignant neoplasm of colon 773699427 Z12.11 UP TO DATE Screening mammography 24 154316 Z12.31 UP TO DATE Influenza vaccination declined 993654035 Z28.21 Dermatophytosis 70590414 B35.9 AcuteEduca blane on diagnosis as well as potential consequenc es if untreatedT reatment options discussed as well.Treat ment as below recommende d and patient agree [id number] Tomás Garcia APRN [address] [address] 09/03/2023 13:47:45 09/03/2023 16:11:32 Pruritic rash 33616712 L28.2 Better s/p treatment finished at prednisone Urticaria 319826768 L50. 9 Patient was seen today for follow-up urticaria, disappear skin lesion, doing well Dermatophytosis 97305591 B35.9 Patient was seen last week for [...] ID Guarantor Name 10/29/2023 1 [employer] (HMO) [id number] 1 Lesvia Josh [id number] Lesvia Josh 10/29/2023 2 [place] [id number] Lesvia Josh Lesvia Josh 09/29/2022 2 *SELF PAY* Bi biana Josh 01/15/2023 1 [place] [id number] Lesvia Josh [id number] Lesvia Josh 10/29/2023 2 [employer] - [facility] (HMO) Lesvia Josh [id number] Lesvia Josh 04/01/2023 1 [employer] (HMO) [id number] 1 Lesvia Josh [id number] Lesvia Josh 05/07/2023 1 [employer] (HMO) [id number] 1 Josh, Lesvia [id number] Lesvia Josh 04/10/2022 1 [place] [id number] Lesvia Josh [id number] Lesvia Josh 06/04/2023 1 [employer] - [facility] (HMO) [id number] 1 Lesvia Josh [id number] Lesvia Josh 10/29/2023 2 [place] [id number] Lesvia Josh [id number] Lesvia Josh Notes Date Note Type Note [...] since teenage years. She has constant left zoroastrianism pain which is constant, can range from 5-9/10, sharp pain. She states that she had tried eawo-nsr-kurqwuk Tylenol, Advil with no improvement. She has [...] escalations. She states that she has seen bat carrier over 4 years ago which she states was a normal work-up. VINCE RICHARDS DO [address], [place], [address], [employer] [place] [employer] 03/09/2023 09:23:22 3 text/html Extensive/Preventative ExamReported bypatient.Reason [...] of colorectal cancer screener No Imported from [place] on 08/10/2023 Ana Feliz MD [address], [place], [address], [facility] [employer] 08/10/2023 15:17:19 3 text/html Acute HPIReported bypatient.Reason for visit:acute complaint Location:index finger Quality:Trauma Onset/Timing:abrupt;1 weeks agoFollow upReported bypatient.Reason for visit:recheck of previous visit Severity:mild Current status:variably controlled Current control and compliance:compliant with regimen Ana Feliz MD [address], [place], [address], [facility] [employer] [facility], [employer] 08/24/2023 15:40:51 3 text/html RashReported bypatient.Reason for visit:exacerbation of chronic complaint Quality:macular;red;itch y Severity:moderate Duration:constant Context:no new detergents or skin products; no one else with similar rash Alleviating Factors:nothing gives relief Aggravating Factors:nothing makes it worse Associated Symptoms:no cold symptoms; no nausea; no vomiting; no diarrhea; no urinary symptoms; no chills; no fatigue; no change in weight Ana Feliz MD [address], [place], [address], [employer] [facility] [employer] [facility], [employer] 08/27/2023 15:50:58 3 text/html Follow upReported bypatient.Reason [...] fatigue; no change in weight Tomás Garcia, DISPATCH ASSOCIATE [address], [employer], [address], [facility], [employer] 09/03/2023 18:59:52 OBGyn Episode No OBEpisode recorded.
--- OUTSIDE RECORDS SUMMARY | 2025-06-07 15:00 | XMS_ITS | Clinical Summary ---
Author Organization [employer] Address [address] [facility] [address] [place] [address] Care Team Providers Care Thread Singer Name Role Phone Keturah Aguilar [facility] Primary Care Provider [phone] Allergies Active Allergy Reactions Criticality Noted Date [...] Encounter for annual routine gynecological exami [facility] 02/18/2025 Exercise counseling 12/31/2024 Dietary counseling 12/31/2024 [...] for her- walking at the mall, attending [employer]- she will continue using strategies before seeking out for MH services. clinician engaged patient with active/reflective listening. Reviewed and assessed for risk, current stressors and protective factors using open-ended questions. Explored strategies to utilize in daily routine to decrease her sxs. Pt declined OP referral at this time. Not interested in starting medication. clinician will provide additional support during next medical appointment. Provided [facility] numbers. Sinusitis 09/20/2024 Assessment & [...] Description 05/08/2025 2:30 PM EDT Office Visit [facility] OPTOMETRY [address] [place], [place] [phone] Jose Juan Nita, OD Cortical cataract of both eyes (Primary Dx); Presbyopia 05/08/2025 Travel 03/14/2025 Telephone [facility] MEDICINE [address] [place], [place] [phone] Keturah Aguilar FNP May Recall from Last [...] with others, in a hotel, in a intermediate, living outside on the street, on a [...] (2 - season) 2024 10/27/2022 Influenza Vaccine (#1) 2025 , 10/19/2017, 11/27/2016, Additional history exists SDOH Screening 12/14/2025 12/14/2024 Alcohol/Substance Use Screening 12/23/2025 12/23/2024 Depression Screening 12/23/2025 12/23/2024, 12/23/19 Tobacco Screening 05/08/2026 05/08/2025 Mammogram 03/27/2027 03/27/2025, 04/04/2024, 07/22/2019 Cervical Cancer Screening 02/15/2030 HPV/Cotest 02/15/2030 [...] Narrative 04/02/2025 5:53 PM EDT [facility] [address] [place], [place] [address] Mammography Report Signed Patient: Lesvia Xie MR#: [id number] : 1965 Acct:[id number] Age/Sex: 59 / F ADM Date: 03/27/25 Loc: [facility] Attending Dr: Keturah Aguilar [employer] Ordering Physician: Keturah Aguilar Results: 1Negat erasmo Date of Service: 03/27/25 Follow Up: 1 Year From Orig ina Mammogram Procedure(s): MM tomosynthesis screening BI Accession Number(s): [id number] cc: Keturah Aguilar [employer] EXAMINATION: MM SCREENING DIGITAL BREAST TOMOSYNTHESIS, BILATERAL [...] 04/02/25 1750 DD/ 1455 TD/TT: 03/27/25 1515 Lap Machine Operator: Procedure Note Donotuseinterpreter, Image - 04/02/2025 [facility] [address] [place] [address] [place], [place] [address] Mammography Report Signed Patient: Lesvia XieMR#: [id number] : 1965Acct:[id number] Age/Sex: 59 / FADM Date: 03/27/25 Loc: [facility] Attending Dr: Keturah CUMMINGSP Ordering Physician: Keturah Aguilar FNPResults: 1Negat erasmo Date of Service: 03/27/25Follow Up: 1 Year From Orig ina Mammogram Procedure(s): MM tomosynthesis screening BI Accession Number(s): [id number] cc: Keturah Aguilar EXAMINATION: MM SCREENING DIGITAL [...] 04/02/25 1750 DD/ 1455 TD/TT: 03/27/25 1515 Lap Machine Operator: Keturah ROBINS IMG BI PROCEDURES Edited Resul t - Final * Pap Smear (02/15/2025 9:30 AM EDT) Swab Cervical swab / Unknown 02/15/2025 9:30 AM EDT 02/16/2025 6:00 AM EDT [facility] - 02/22/2025 10:16 AM EDT ----- ------- Name: Lesvia Xie Age/Sex: 59/F : 1965 Unit#: [id number] Attend Dr: Re02/15/25 Status: PRE REF Location: [facility] Disch: ----- ------- SPEC : [id number] RECD: 02/16/25 STATUS: FRANDY FARIA NUM: [id number] ESE: 02/15/[address]: Keturah Aguilar [employer] ENTERED: 02/16/25 SP TYPE: Pap Smr OT [...] ----- ------- END OF REPORT Keturah Aguilar [facility] CYTOLOGY ORDERABLES Final Result [facility] [address] [place] [phone] * HPV DNA, Low/High Risk (02/15/2025 12:00 AM EDT) Pathologist [facility] HPV High Risk Negative Negative [facility] HPV Genotype 16 Negative Negative [facility] HPV Genotype 18 Negative Negative [facility] Comment:HPV testing performe d at [facility] (CLIA#[id number]), [address] [place] [address].Testing for HPV was performed using the Jeannine [...] detected. 02/15/2025 02/16/2025 6:0 0 AM EDT [facility] LAB BLOOD ORDERABLES Final Res ult Performing Organization Address [facility]/ZIP Co de Phone Number [facility] [address] [place] [phone] * Hepatitis C Antibody with Reflex to HCV, RNA, Quantitative, Real-Time PCR (12/26/2024 1:40 PM EST) Hepatitis C Antibody Nonreactive Nonreactive [facility] Comment:Antibodies to HCV no t detected; does not exclude early acuteHCV infection. Blood Venous blood specimen / Unknown 12/26/2024 1:40 PM EST 12/26/2024 4:23 PM EST [facility] LAB BLOOD ORDERABLES Final Res ult Performing Organization Address [facility] Co de Phone Number [facility] [address] [place] [phone] * HIV-1/2 Antigen and Antibodies, Fourth Generation, with Reflexes (12/26/2024 1:40 PM EST) HIV AB/AG Nonreactive Nonreactive [facility] Comment:HIV-1 p24 Ag and/or HIV-1/HIV-2 Ab not detected.A test result that is nonreactive does not exclude thepossibility of exposure to or infection with HIV-1 and/orHIV-2. Nonreactive results in this assay for individualswith prior exposure to HIV-1 and/or HIV-2 may be due toantigen and antibody levels that are below the limit ofdetection of this assay.The [employer] HIV Ag/Ab Combo assay result andsupplemental assay results should be interpreted inconjunction with the patient's clinical presentation,history and other laboratory results. If the results areinconsistent with clinical evidence, additional testing issuggested to confirm the result. Blood Venous blood specimen / Unknown 12/26/2024 1:40 PM EST 12/26/2024 4:23 PM EST Keturah Aguilar [employer] LAB BLOOD ORDERABLES Final Res ult [facility] [address] [place] [phone] from Last 3 Months or Most Recently Relevant to Health Maintenance Insurance [facility] [address] [facility] [address] [place] [address] [facility] MEDICAID STAND ADULT Care Teams Thread Singer Relationship Specialty Start Date End Date Keturah Aguilar FNP [address] [place] [phone] PCP - General Family Medicine 09/29/24
--- OUTSIDE RECORDS SUMMARY | 2025-06-07 15:00 | XMS_ITS | Patient Health Record ---
Author Organization [facility] Billing Info Address [address] [place], [place] [phone] Care Team Providers Care Block Paver Name Role Phone NILESH YBARRA [phone] Allergies Allergen (clinical drug ingredient) Drug/Non Drug [...]
--- OUTSIDE RECORDS SUMMARY | 2025-06-07 15:00 | XMS_ITS | Patient Health Record ---
Author Organization Rafal Bal [facility] [place] Address [address] [phone] Support Name Relationship Address Phone VIRI Lesvia Guarantor Unknown [phone] Allergies Allergen (clinical drug ingredient) Drug/Non Drug [...] Notes Problem Migraine variant with headache (disorder) (982318375) Migraine headache (G43.901) Active confirmed Problem Body mass index 30+ - obesity (087091596) BMI 30.0-30.9,adult (Z68.30) Active confirmed Problem Migraine with aura (2074279) Migraine with aura and without status migrainosus, not intractable (G43.109) Active confirmed Problem Abnormal findings on diagnostic imaging of breast (732943081) Abnormal mammogram of both breasts (R92.8) Active [...] Coverage Start Date Coverage End Date [employer] [place] [employer] [facility] [address] [place] [address] [id number] Lesvia MEREDITH Self - patient is the insured Medical (General) History Medical History History ICD Code Migraine headache G43.901 Hospitalization History Reason Date(Month/Year) Tip--cellulitis caused by bug bite 12/18
== END 2025-06-07 14:54 | disposition home or self-care (01) ==
LOC: HO.HOS 14:25
PROVIDERS: PCP Nurse Practitioner Family
DX: M65.311 Trigger thumb, right thumb (principal); G56.01 Carpal tunnel syndrome, right upper limb
CPT/HCPCS: 99024

== ENCOUNTER → 2025-06-07 14:25 | Outpatient (BNVA) | payer MEDICAID, SELFPAY | PROVIDERS: PCP Nurse Practitioner Family | DX: M65.311 Trigger thumb, right thumb (principal); G56.01 Carpal tunnel syndrome, right upper limb; Z98.890 Other specified postprocedural states | CPT/HCPCS: 99212 ==

== ENCOUNTER 2025-07-06 14:07 | Outpatient (RCR) | payer OTHER, SELFPAY ==
--- NOTE | 2025-06-20 15:58 | MHC.OT.OEV ---
[address] [phone] F: [phone] Occupational Therapy Evaluation Patient Name: Lesvia Gaines Diagnosis: (R)Trigger thumb and CTR Date of Onset: Date of Surgery: 05/18/25 Attending Provider: Chai Morgan Prescribed Treatment: Follow Up Appointment: History of Current Condition: Patient is a 59 y/o female who is s/p (R)CTR and trigger thumb release. She reports 7/10 at rest and during movement. Denies numbness/ tingling. 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 She lives with daughter and grandson. Her hobbies include walking. She states that she is able to do all tasks. In regards to her thumb she reports mild pain with flexion. 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 [employer] (I)ADLs/IADLs walking Living Situation, Family and/or Social Support: Lives with daughter and grandson Current Level of Function and Occupation Self Care, Employment, Leisure: min (A)ADLs/IADls Sleep: Wakes due to pain Driving: Does not drive Vision: Balance: Pain Assessment Pain Score: 7 Pain Scale Used: Numeric (0 - 10) Pain Location and Description: 7/10 during rest and during movement Aggravating Factors: Alleviating Factors: Ibuprofen, Motrin, uses ice Skin and Soft Tissue Assessment Skin and Soft Tissue: Comments: Scar on volar side of wrist , no s/s of infection Scare on base of thumb, no s/s of infection No edema present Nerve assessment Ulnar Nerve: Median Nerve: Radial Nerve: Comments: Sensory Assessment Temperature: Light Touch: Proprioception: Vibration: Comments: Edema Assessment Upper Extremity: Lower Extremity: Comments: Dexterity Assessment Dexterity: Comments: WFL Special Tests Comments: AROM(PROM) Strength Cervical Cervical Flexion: Cervical Extension: Cervical Lateral Flexion: Cervical Rotation: Comments: WFL Shoulder Flexion: Extension: Abduction: Internal Rotation: External Rotation: Comments: WFL Flexion: Extension: Abduction: Internal Rotation: External Rotation: Comments: WFL Elbow Flexion: Extension: Pronation: Supination: Comments: WFL Flexion: Extension: Pronation: Supination: Comments: Wrist Flexion: 67 Extension: 64 Ulnar Deviation: 25 Radial Deviation: 12 Comments: Flexion: Extension: Ulnar Deviation: Radial Deviation: Comments: Thumb Thumb CMC Flexion: Thumb MCP Flexion: 58 Thumb IP Flexion: 36 Radial Abduction: 45 Palmar Abduction: [place] (Kapandji 0-10): 10 Comments: Digits Index MCP: PIP: DIP: Long MCP: PIP: DIP: Ring MCP: PIP: DIP: Small MCP: PIP: DIP: Comments: WFL Gross Grasp: (L)50lbs. Lateral Pinch: Two-Point Pinch: Three-Jaw Ector: Comments: (R)not tested at this time Patient Education Primary Language: Financial Services Director Required: No Current Knowledge: Understands information with skills for self-management Teaching Method: Verbal Education Needs Identified on Evaluation: ADL's Disease Information Exercise Pain Safety How did patient/family demonstrate learning? Patient demonstrates Patient verbalizes Barriers to Learning: None Readiness for Learning: Accepting Who was educated? Patient Comments: Plan of Care Assessment: Based on initial OT evaluation patient is 5 weeks s/p CTR and trigger thumb release who presents with impaired ROM, pain, impaired strength and impaired performance during self care tasks. Quick DASH= 20.5 indicating patient's perceived impairment of the UE during self care tasks. Due to the documented impairments it is recommended that patient receive a short course of therapy in order to achieve her PLOF of (I) during self care tasks. Thank you for your referral. STG Duration: 2 weeks Short Term Goals: Patient will report 1/10 pain in (R)wrist Patient will increase wrist extension to 70* Patient will increase wrist flexion to 75* Patient will be (I) with scar massage Patient will be (I) with HEP Patient will decrease Quick DASH score to 10% or less LTG Duration: Halfway Goals: Frequency and Duration: The patient will be seen 2x a week for 2 weeks Treatment Plan: Therapeutic Exercise Therapeutic Activity Home Exercise Program Splinting Neuro Re-ed Patient Education Desensitization/Sensory Re-ed Edema Control ADL Training Ultrasound NMES Iontophoresis Paraffin Fluidotherapy MHP Cold Packs Joint Mobilization Soft Tissue Mobilization Kinesiotaping Other (see comments) skilled OT eval and treat Electronically Signed By: JESSICA Burkett/Jeremie, CLT Reviewed/agree with student documentation: Therapist: Please sign and return to therapist, Thank you for your referral.
--- NOTE | 2025-07-07 14:16 | MHC.OT.DC ---
[facility] Office [address] [phone] F: [phone] F: [phone] Occupational Therapy Discharge Note Patient Name: Lesvia Gaines Provider: Chai Morgan Diagnosis: (R)Trigger thumb and CTR Date of Surgery: 05/18/25 Date of Evaluation: 06/20/25 Date of Discharge: Treatments to Date: 2 Cancellations to Date: No Shows to Date: Discharge Status: Discharge Summary: Based on initial OT evaluation patient is 5 weeks s/p CTR and trigger thumb release who presents with impaired ROM, pain, impaired strength and impaired performance during self care tasks. Quick DASH= 20.5 indicating patient's perceived impairment of the UE during self care tasks. Due to the documented impairments it is recommended that patient receive a short course of therapy in order to achieve her PLOF of (I) during self care tasks. Electronically Signed By: Olga Pino OTR/L, CLT Reviewed/agree with student documentation: Therapist: Please Sign and return to therapist, thank you for your referral.
== END 2025-07-07 14:16 | disposition home or self-care (01) ==
LOC: HO.OT 14:07
PROVIDERS: PCP Nurse Practitioner Family
DX: M65.311 Trigger thumb, right thumb (principal); G56.01 Carpal tunnel syndrome, right upper limb
CPT/HCPCS: 97110; 97140; 97165; 97535